=== PATIENT | female | born 1950 | race Caucasian/White ===

== ENCOUNTER 2019-09-28 15:31 | Outpatient (CLI) | payer MEDICARE, BC, SELFPAY ==
--- NOTE | ~2019-09-28 | MM_ITS ---
EXAMINATION: MM screening [facility] BI w henry HISTORY: Screening mammogram TECHNIQUE: Craniocaudal and mediolateral oblique 3-D tomosynthesis images were obtained and synthetic 2-D images were generated. CAD analysis was submitted and interpreted. COMPARISON: 07/03/2018, 06/18/2017, 06/10/2016 BREAST PARENCHYMAL COMPOSITION: There are scattered areas of fibroglandular density. FINDINGS: Scattered benign-appearing calcifications are present. There is no evidence of suspicious m ass, calcification, or architectural distortion to suggest malignancy in either breast. There has bee n no suspicious interval change. IMPRESSION: 1. No mammographic evidence of malignancy. 2. Recommend routine screening mammography in one year. BI-RADS Category 2: Benign finding(s). Reviewed, dictated and finalized at location A.
== END 2019-09-28 15:32 | disposition home or self-care (01) ==
PROVIDERS: PCP Family Medicine; Visit Provider Physician Assistant Medical
DX: Z12.31 Encounter for screening mammogram for malignant neoplasm of breast (principal)
CPT/HCPCS: 77063; 77067

== ENCOUNTER 2020-04-20 17:22 | Emergency (ER) | payer MEDICARE, BC, SELFPAY ==
--- NOTE | ~2020-04-20 | CT_ITS ---
EXAMINATION: CT brain wo con EXAM DATE: 04/20/2020 18:10 INDICATION: Headache. TECHNIQUE: Spiral CT of the head was performed without contrast. Axial, coronal and sagittal images were reviewed. The dose-length product (DLP) for this examination was 605.33 mGy-cm. The exposure w as tailored according to patient size, and iterative reconstruction (ASIR) was used as additional dos e reduction technique. Comparison is made to prior examination from 07/03/2013. FINDINGS: There is no acute intraparenchymal hemorrhage. No evidence of intraparenchymal brain mass lesion. No evidence of acute infarction. There is no mass effect or midline shift. The ventricles are normal in size. There are no extra-axial collections. There are no acute calvarial fractures. P vargas has had bilateral ocular lens surgery. The Soft tissue is unremarkable. The visualized sinuse s and mastoid air cells are well aerated. IMPRESSION: 1. No acute intracranial findings. Reviewed, dictated and finalized at location A. K PROCESSOR
--- NOTE | ~2020-04-20 | XR_ITS ---
EXAMINATION: XR chest 1V portable EXAM DATE: 04/20/2020 18:36 INDICATION: Hypertension, headache. TECHNIQUE: Portable AP frontal chest x-ray was obtained. Comparison is made to prior examination from 07/04/2016. FINDINGS: The lungs are clear. There are no pleural effusions. Cardiac silhouette is prominent but magnified on this AP technique. There is no pneumothorax suspected. The bones and soft tissues are unremarkable. Mild hyperinflation. IMPRESSION: No acute cardiopulmonary findings. Reviewed, dictated and finalized at location A. H FREEZER
[2020-04-20 17:28] VITALS: BP 214/74; PULSE 66; RESP 14; TEMP 37.1; O2SAT 99
--- NOTE | 2020-04-20 17:35 | ECG_ITS ---
Measurements Intervals [place] Rate: 61 P: 53 UT: 179 QRS: -20 QRSD: 104 T: 11 QT: 417 QTc: 421 Interpretive Statements SINUS RHYTHM POSSIBLE LEFT ATRIAL ENLARGEMENT INCOMPLETE RIGHT BUNDLE BRANCH BLOCK BORDERLINE ECG Electronically Signed On 04-21-2020 7:02:21 [employer] by David Villalobos D.O.
--- NOTE | 2020-04-20 17:52 | ED.HA ---
HPI - Headache General Chief Complaint: Headache Stated Complaint: high blood pressure Time Seen by Provider: 04/20/20 17:32 Source: patient Mode of arrival: ambulatory Limitations: no limitations History of Present Illness HPI Narrative: Patient is a 7-year-old female complaining of a headache, generalized, 3 out of 10, throbbing, nonradiating accompanied by elevated blood pressure started 2 weeks ago. Patient denies any speech or visual disturbance, numbness, weakness or unsteady gait. Patient denies any chest pain, abdominal pain, shortness of breath, nausea, vomiting, fever, or chills. Patient denies any neck pain or stiffness. Related Data Home Medications Medication Instructions Recorded Confirmed gabapentin 100 mg capsule 300 mg PO TID cap 11/24/19 11/24/19 aspirin 81 mg PO DAILY 04/20/20 04/20/20 vitamin B complex [B 1 tablet PO DAILY 04/20/20 Complex-Vitamin B12] wheat dextrin [Benefiber Healthy g PO 04/20/20 Shape] Allergies Allergy/AdvReac Type Severity Reaction Status Date / Time adhesive Allergy Unknown RASH Verified 04/10/20 08:20 codeine Allergy Unknown Unknown Verified 04/10/20 08:20 Penicillins Allergy Unknown Hives / Verified 04/10/20 08:20 Red Face epinephrine AdvReac Unknown Palpitation Verified 04/10/20 08:20 s Review of Systems Review of Systems: All systems reviewed & are unremarkable except as noted in HPI and below Constitutional: Constitutional: Denies body ache(s), Denies chills, Denies excessive sweating, Denies fatigue, Denies fever(s), Denies headache(s), Denies lethargy, Denies malaise, Denies weakness and Denies weight loss Eyes: Eyes: Denies blurry vision, Denies change in vision and Denies loss of vision ENT: Denies dizziness, Denies ear discharge, Denies headache(s), Denies lip swelling, Denies epistaxis, Denies nasal congestion, Denies neck pain, Denies throat swelling and Denies tongue swelling Cardiovascular: Cardiovascular: Denies chest pain, Denies chest pain at rest, Denies chest pain with activity, Denies diaphoresis, Denies rapid heart rate, Denies edema, Denies irregular heart rhythm, Denies lightheadedness, Denies palpitations, Denies dyspnea and Denies dyspnea on exertion Respiratory: Respiratory: Denies chest congestion, Denies cough, Denies hemoptysis, Denies dyspnea and Denies dyspnea on exertion Gastrointestinal: Gastrointestinal: Denies abdominal pain, Denies melena, Denies hematochezia, Denies diarrhea, Denies nausea, Denies vomiting and Denies hematemesis Musculoskeletal: Musculoskeletal: Denies abnormal gait, Denies deformity, Denies joint swelling, Denies limited range of motion, Denies neck pain and Denies numbness Neurologic: Denies Abnormal speech present, Denies abnormal gait, Denies confusion, Denies dizziness, Denies focal weakness, Denies loss of vision, Denies numbness, Denies Other visual disturbances, Denies Sensory deficit (Neuro) and Denies weakness Psychiatric: Psychiatric: Denies confusion, Denies depression, Denies auditory hallucinations, Denies homicidal ideation and Denies suicidal ideation Endocrine: Endocrine: Denies cold intolerance, Denies excessive sweating, Denies fatigue, Denies heat intolerance and Denies palpitations Hematologic/Lymphatic: Hematologic/Lymphatic: Denies easy bleeding and Denies easy bruising Allergic/Immunologic: Allergic/Immunologic: Denies lip swelling, Denies throat swelling and Denies tongue swelling PMFSH Past Medical History Medical History Acid reflux BMI 30.0-30.9,adult BMI 32.0-32.9,adult Deviated septum Diabetes Elevated lipids Hypertension Irritable bowel Surgical History Surgical History H/O shoulder surgery H/O total hysterectomy with bilateral salpingo-oophorectomy (BSO) H/O tubal ligation History of removal of skin mole Hx of tonsillectomy Family History Family History (Reviewed
[2020-04-20 18:00] LABS: Basophils Absolute Auto 0.1 K/mm3 (0.0-0.1); Basophils Percent Auto 0.8 % (0.2-1.2); Eosinophils Absolute Auto 0.2 K/mm3 (0-0.3); Eosinophils Percent Auto 2.4 % (0-4.4); Hematocrit 39.4 % (37.0-47.0); Hemoglobin 12.8 g/dL (12.0-15.0); Immature Granulocyte Absolute 0.02 K/mm3 (0.00-0.031); Immature Granulocyte Percent A 0.3 % (0-0.5); Lymphocytes Absolute Auto 2.05 K/mm3 (0.9-3.2); Lymphocytes Percent Auto 26.2 % (18.3-44.2); Mean Corpuscular HGB Conc 32.5 g/dl (32-36); Mean Corpuscular Hemoglobin 28.6 pg (26-34); Mean Corpuscular Volume 87.9 fl (80-100); Mean Platelet Volume 11.6 fl (7.4-10.4); Monocytes Absolute Auto 0.7 K/mm3 (0.1-0.6); Monocytes Percent Auto 9.1 % (2.6-8.5); Neutrophils Absolute Auto 4.8 K/mm3 (1.3-6.7); Neutrophils Percent Auto 61.2 % (45.5-73.1); Platelet Count Result 238 k/mm3 (150-375); Red Blood Count 4.48 M/mm3 (4.2-5.4); Red Cell Distribution Width 13.7 % (11.5-14.5); White Blood Count 7.8 K/mm3 (4.5-10.0)
[2020-04-20 18:10] LABS: Partial Thromboplastin Time 29.3 SECONDS (22.3-36.8); Prothrombin Time 13.4 Seconds (11.1-14.7)
[2020-04-20 18:14] LABS: Alanine Aminotransferase 36 U/L (4-35); Albumin Level 4.5 g/dL (3.5-5.1); Alkaline Phosphatase 101 U/L (38-126); Anion Gap 12 mmol/L (8-16); Aspartate Amino Transferase 30 U/L (14-36); Bilirubin,Total 0.4 mg/dL (0.2-1.3); Blood Urea Nitrogen 18 mg/dL (7-17); Calcium 9.3 mg/dL (8.4-10.2); Carbon Dioxide 29 mmol/L (22-30); Chloride 95 mmol/L (98-107); Estimated CRCL calculation 70 ml/min; Estimated Glomerular Filt Rate > 60; Glucose 119 mg/dL (65-105); Potassium 3.6 mmol/L (3.4-5.0); Sodium 136 mmol/L (137-145)
[2020-04-20] MEDS: hydrALAZINE HCL 20 MG/ML VIAL 10 MG IV PUSH (18:14)
[2020-04-20 18:17] VITALS: BP 206/69; PULSE 53; RESP 20; O2SAT 98
[2020-04-20 18:25] LABS: Troponin I < 0.012 ng/mL (0.000-0.034)
[2020-04-20 18:57] VITALS: BP 141/56; PULSE 54; RESP 17; O2SAT 99
[2020-04-20 20:10] VITALS: BP 186/70; PULSE 57; RESP 16; O2SAT 99
== END 2020-04-20 20:12 | disposition home or self-care (01) ==
PROVIDERS: Emergency Provider Emergency Medicine; PCP Family Medicine
DX: I16.0 Hypertensive urgency (principal); K21.9 Gastro-esophageal reflux disease without esophagitis; E11.9 Type 2 diabetes mellitus without complications; I10 Essential (primary) hypertension
CPT/HCPCS: 36415; 70450; 71045; 80053; 84484; 85025; 85610; 85730; 93005; 96374; 99284; J0360

== ENCOUNTER 2020-04-28 07:53 | Outpatient (CLI) | payer MEDICARE, BC, SELFPAY ==
--- NOTE | 2020-04-28 08:31 | ECHO_ITS ---
Patient Info Name: Heidy Arciniega Age: 70 years : 1950 Gender: Female Ht: 64 in Wt: 200 lbs BSA: 2.06 m2 HR: 45 bpm BP: 150 / 65 mmHg Heart Rhythm: Bradycardia Technical Quality: Good Exam Date: 04/28/2020 9:07 AM Exam Location: [facility] Patient Status: Outpatient Admit Date: 04/28/2020 Staff Ordering Physician: Yiemi Dominguez PAC Emergency Department Nurse: Chacha Shahid RDCS Attending Provider: Yeimi Dominguez PAC Referring Physician: Alberto GARCIA; Exam Type: CA echo doppler color flow Study Info Indications R06.02 - Shortness of breath R01.1 - Cardiac murmur, unspecified Complete two-dimensional, color flow and Doppler transthoracic echocardiogram is performed. Summary 1. Complete two-dimensional, color flow and Doppler transthoracic echocardiogram is performed. 2. Left ventricular chamber dimension is mildly enlarged. 3. Left ventricular systolic function is normal, estimated at 60-65%. 4. The left ventricular diastolic function is grade I diastolic dysfunction. 5. E/e' 19 is elevated. 6. Left atrial chamber dimension is mildly enlarged. 7. There is mild to moderate aortic valve regurgitation. 8. There is trace mitral valve regurgitation. 9. No pulmonary hypertension, estimated pulmonary arterial systolic pressure is 28 mmHg. Left Ventricle E/e' 19 is elevated. Left ventricular chamber dimension is mildly enlarged. Left ventricular systolic function is normal, estimated at 60-65%. The left ventricular diastolic function is grade I diastolic dysfunction. Right Ventricle Right ventricular chamber dimension is normal. Right ventricular systolic function is normal. Left Atria Left atrial chamber dimension is mildly enlarged. Right Atria Right atrial chamber dimension is normal. Aortic Valve The aortic valve is trileaflet. There is no aortic valve stenosis. There is mild to moderate aortic valve regurgitation. Pulmonic Valve There is no pulmonic regurgitation. Mitral Valve There is no mitral valve stenosis. There is trace mitral valve regurgitation. Tricuspid Valve There is no tricuspid valve regurgitation. No pulmonary hypertension, estimated pulmonary arterial systolic pressure is 28 mmHg. Pericardium/Pleural There is no pericardial effusion. Inferior Vena Cava Normal inferior vena cava with >50% collapse upon inspiration consistent with normal right atrial pressure, 5 mmHg. Aorta The aortic root size at the sinus of Valsalva is normal. Left Ventricular Outflow Tract Name Value Normal LVOT 2D LVOT Diameter 2.0 cm LVOT Doppler LVOT Peak Gradient 6 mmHg LVOT Mean Gradient 4 mmHg LVOT VTI 33 cm LVOT VTI/AV VTI Ratio 0.8 LVOT Stroke Volume 103 ml LVOT CO 16.9 l/min LVOT CI 8.2 l/min/m2 Pulmonic Valve Name Value Normal -----
--- NOTE | 2020-04-28 08:31 | EST_ITS ---
Patient Info Name: Heidy Arciniega Age: 70 years : 1950 Gender: Female Ht: 64 in Wt: 200 lbs BSA: 2.06 m2 HR: 48 bpm BP: 150 / 65 mmHg Exam Date: 04/28/2020 11:02 AM Exam Location: [facility] Stress Patient Status: Outpatient Admit Date: 04/28/2020 Staff Ordering Physician: Yeimi Dominguez PAC Attending Provider: Yeimi Dominguez Exercise Technologist: Diana Burnett CT Exercise Physician: David Villalobos DO Exam Type: CA stress test treadmill Study Info Indications R06.02 - Shortness of breath R01.1 - Cardiac murmur, unspecified A treadmill exercise stress test was performed. Summary 1. 1. Inconclusive [place] exercise stress test for ischemic ST changes by ECG criteria as patient only achieved 69% MPHR for age group and limited by dizziness. 2. 2. Reduced functional capacity, achieving 6 METs of workload. 3. 3. Baseline hypertension with hypertensive response to exercise. 4. 4. Appropriate HR response to exercise. 5. 5. Appropriate HR recovery at 1 minute post exercise. 6. 6. No imaging with stress testing. 7. 7. Patient informed of the above results. Protocol: [place] Stress ECG Details Stage: REST Duration (min): 5 min : 39 sec Speed (mph): 0.0 Grade (%): 0 HR (bpm): 50 SBP (mmHg): 150 DBP (mmHg): 65 METS: --- Stage: STAGE 1 Duration (min): 1 min : 0 sec Speed (mph): 1.7 Grade (%): 10 HR (bpm): 69 SBP (mmHg): 150 DBP (mmHg): 65 METS: --- Stage: STAGE 1 Duration (min): 2 min : 0 sec Speed (mph): 1.7 Grade (%): 10 HR (bpm): 82 SBP (mmHg): 150 DBP (mmHg): 65 METS: --- Stage: STAGE 1 Duration (min): 3 min : 0 sec Speed (mph): 1.7 Grade (%): 10 HR (bpm): 90 SBP (mmHg): 160 DBP (mmHg): 48 METS: --- Stage: STAGE 2 Duration (min): 1 min : 0 sec Speed (mph): 2.5 Grade (%): 12 HR (bpm): 102 SBP (mmHg): 160 DBP (mmHg): 48 METS: --- Stage: STAGE 2 Duration (min): 1 min : 11 sec Speed (mph): 2.5 Grade (%): 12 HR (bpm): 103 SBP (mmHg): 160 DBP (mmHg): 48 METS: --- Stage: RECOVERY Duration (min): 0 min : 48 sec Speed (mph): 0.0 Grade (%): 0 HR (bpm): 94 SBP (mmHg): 231 DBP (mmHg): 60 METS: --- Stage: RECOVERY Duration (min): 1 min : 48 sec Speed (mph): 0.0 Grade (%): 0 HR (bpm): 84 SBP (mmHg): 231 DBP (mmHg): 60 METS: --- Stage: RECOVERY Duration (min): 2 min : 48 sec Speed (mph): 0.0 Grade (%): 0 HR (bpm): 74 SBP (mmHg): 231 DBP (mmHg): 60 METS: --- Stage: RECOVERY Duration (min): 3 min : 48 sec Speed (mph): 0.0 Grade (%): 0 HR (bpm): 70 SBP (mmHg): 231 DBP (mmHg): 60 METS: --- Stage: RECOVERY Duration (min): 4 min : 48 sec Speed (mph): 0.0 Grade (%): 0 HR (bpm): 66 SBP (mmHg): 239 DBP (mmHg): 70 METS: --- Stage: RECOVERY Duration (min): 5 min :
== END 2020-04-28 07:54 | disposition home or self-care (01) ==
PROVIDERS: PCP Family Medicine; Visit Provider Physician Assistant Medical
DX: R06.02 Shortness of breath (principal); R01.1 Cardiac murmur, unspecified
CPT/HCPCS: 93017; 93306

== ENCOUNTER 2020-07-24 03:26 | Inpatient (IN) | payer MEDICARE, BC, SELFPAY ==
[2020-07-24] VITALS (16 sets, daily range): BP systolic 132–195; BP diastolic 49–76; PULSE 62–102; RESP 14–20; TEMP 36.2–36.6; O2SAT 96–100; BMI 33.8
--- NOTE | ~2020-07-24 | US_ITS ---
EXAMINATION: US abdomen limited EXAM DATE: 07/24/2020 13:05 INDICATION: Possible acute cholecystitis, evaluate for stones. Abnormal CT scan. TECHNIQUE: Multiple grayscale and Doppler images of the abdomen right upper quadrant were obtained (nereida y a technologist who performed the scan) and subsequently reviewed. Correlation is made to CT earlier same date. FINDINGS: The pancreatic head and body are normal in appearance. The pancreatic tail is not visualized. The l iver has normal echogenicity and contour. There are no focal liver lesions identified. There is no evidence of intrahepatic biliary duct dilation. Portal venous flow was seen in the hepatopedal, nor mal direction and has normal Doppler waveform. No right-sided hydronephrosis. Common bile duct measures 3 mm, which is normal. There is diffusely thickened wall up to about 6 mm. There is small pericholecystic fluid. No cholelithiasis. Technologist performing exam reports patien t did not demonstrate sonographic Diallo's sign. Please note that this sign is less reliable in maryjane ents who have received pain medication. IMPRESSION: Moderately distended gallbladder with wall thickening and pericholecystic fluid, nonspecific given ab sence of sonographic Diallo's sign (was pain medication administered?). No cholelithiasis. Appearance suspicious for acute or chronic cholecystitis? Clinical correlation, consider HIDA scan. Reviewed, dictated and finalized at location A. IMPRESSION: Moderately distended gallbladder with wall thickening and pericholecystic fluid , nonspecific given absence of sonographic Diallo's sign (was pain medication a dministered?). No cholelithiasis. Appearance suspicious for acute or chronic ch olecystitis? Clinical correlation, consider HIDA scan.
--- NOTE | ~2020-07-24 | CT_ITS ---
EXAMINATION: CT abdomen pelvis w con EXAM DATE: 07/24/2020 06:41 INDICATION: Abdominal pain. Epigastric pain and hypertension. TECHNIQUE: Spiral CT of the abdomen and pelvis was performed following intravenous injection of 100 m L Omnipaque 350. Axial, coronal and sagittal images of the abdomen and pelvis were reviewed. The do se-length product (DLP) for this examination was 978.35 mGy-cm. The exposure was tailored according to patient size (auto mA exposure control), and iterative reconstruction (ASIR) was used as additiona l dose reduction technique. Correlation is made to 01/20/2018. FINDINGS: Gallbladder is moderately distended and has edematous wall and probably surrounding pericho lecystic fluid. Appearance is consistent with acute cholecystitis. No calcified cholelithiasis. The l iver, spleen, adrenal glands and pancreas are unremarkable. Portal and splenic veins are patent. Ki dneys enhance symmetrically. There is no hydronephrosis. The uterus is not identified and has like ly been surgically resected. The bladder is unremarkable. There is no retroperitoneal or pelvic lym phadenopathy. The appendix is normal. The stomach and small bowel are unremarkable. There is expected amount of c olonic stool. No free intraperitoneal gas. The heart is normal in size. There are no pericardial or pleural effusions. The lung bases are unremarkable. There are no osteoblastic or osteolytic les ions identified. IMPRESSION: 1. Findings consistent with acute cholecystitis. Reviewed, dictated and finalized at location A.
--- NOTE | ~2020-07-24 | XR_ITS ---
EXAMINATION: XR chest 1V portable EXAM DATE: 07/24/2020 04:10 INDICATION: Lower chest pain. TECHNIQUE: Portable AP frontal chest x-ray was obtained. Comparison is made to prior examination from 04/20/2020. FINDINGS: The lungs are clear. There are no pleural effusions. Cardiac silhouette is prominent but magnified on this AP technique. There is no pneumothorax suspected. The bones and soft tissues are unremarkable. IMPRESSION: No acute cardiopulmonary findings. Reviewed, dictated and finalized at location A.
--- NOTE | 2020-07-24 03:47 | ECG_ITS ---
Measurements Intervals [place] Rate: 71 P: 56 CT: 152 QRS: -22 QRSD: 94 T: 5 QT: 392 QTc: 426 Interpretive Statements SINUS RHYTHM INCOMPLETE RIGHT BUNDLE BRANCH BLOCK DELAYED PRECORDIAL R/S TRANSITION BORDERLINE T WAVE ABNORMALITY- ANT/INF LEADS BORDERLINE ECG Electronically Signed On 07-24-2020 8:35:17 CDT by David Villalobos D.O.
--- NOTE | 2020-07-24 04:21 | ED.GENADULT ---
HPI - General Adult General Chief complaint: Abdominal Pain Stated complaint: epigastric pain, elevated BP Time Seen by Provider: 07/24/20 03:44 Source: RN notes reviewed History of Present Illness HPI narrative: Patient presents to emergency department from home for abdominal pain. Patient states that this afternoon she began to have pain in the upper abdomen that radiates up in the midsternal chest. The pain is described as burning in nature and is progressively worsened. States is associated with mild feeling of nausea. The patient also notes shortness of breath with the symptoms she denies any fevers or chills diarrhea or any other symptoms Related Data Home Medications Medication Instructions Recorded Confirmed gabapentin 100 mg capsule 300 mg PO TID cap 11/24/19 07/11/20 aspirin 81 mg PO DAILY 04/20/20 07/11/20 vitamin B complex [B 1 tablet PO DAILY 04/20/20 07/11/20 Complex-Vitamin B12] wheat dextrin [Benefiber Healthy g PO 04/20/20 07/11/20 Shape] cetirizine 10 mg tablet 10 mg PO DAILY PRN 05/11/20 07/11/20 fluticasone propionate 50 1 spray INTRANASAL DAILY 05/11/20 07/11/20 mcg/actuation nasal spray,suspension lactobacillus combination no.8 3 3,000 mmu cells PO DAILY 05/11/20 07/11/20 billion cell capsule melatonin 5 mg capsule mg PO 05/11/20 07/11/20 Allergies Allergy/AdvReac Type Severity Reaction Status Date / Time adhesive Allergy Unknown RASH Verified 07/24/20 03:37 codeine Allergy Unknown Unknown Verified 07/24/20 03:37 Penicillins Allergy Unknown Hives / Verified 07/24/20 03:37 Red Face amlodipine [From Norvas] AdvReac Intermediate Swelling Verified 07/24/20 03:37 epinephrine AdvReac Unknown Palpitation Verified 07/24/20 03:37 s Review of Systems Review of Systems: Narrative: Gen.: Denies fevers or chills ENT: Denies congestion Respiratory: Reports shortness of breath CV: Reports midsternal chest pain GI: See HPI denies burning, urgency, frequency or hematuria Musculoskeletal: Denies back pain or muscle pain Neuro: Denies numbness, tingling, weakness or focal weakness Skin: Denies rash Except as documented, all other systems reviewed and negative PMFSH Past Medical History Medical History Acid reflux BMI 30.0-30.9,adult BMI 32.0-32.9,adult BMI 33.0-33.9,adult BMI 34.0-34.9,adult Deviated septum Diabetes Edema Elevated lipids Hypertension Irritable bowel Surgical History Surgical History H/O shoulder surgery H/O total hysterectomy with bilateral salpingo-oophorectomy (BSO) H/O tubal ligation History of removal of skin mole Hx of tonsillectomy Family History Family History Daughter Carcinoma of colon Father Acute myocardial infarction Cerebrovascular accident Hypertension Mother Acute myocardial infarction Hypertension Sibling Diabetes mellitus Mother Diabetes mellitus Family history of coronary artery disease Family history of hypercholesterolemia Hypertension Father Cerebrovascular accident Family history of coronary artery disease Family history of hypercholesterolemia Hypertension Grandparent Diabetes mellitus Sibling Diabetes mellitus Family history of hypercholesterolemia Hypertension Other Family history of malignant neoplasm of breast Social History Social History Smoking status: Never smoker Second hand tobacco smoke exposure: No Alcohol intake: never Substance use: never Substance use type: does not use Exam Narrative: Exam Narrative: APPEARANCE: No acute distress, nontoxic, resting in bed HEENT: Normocephalic, atraumatic, OMM RESPIRATORY: No respiratory distress, clear to auscultation bilaterally with no rhonchi wheezing or rales CARDIOVASCULAR: RRR s murmur ABDOMINAL: Soft
[2020-07-24 04:49] LABS: Basophils Absolute Auto 0.1 K/mm3 (0.0-0.1); Basophils Percent Auto 0.5 % (0.2-1.2); Eosinophils Absolute Auto 0.2 K/mm3 (0-0.3); Hematocrit 40.4 % (37.0-47.0); Hemoglobin 12.9 g/dL (12.0-15.0); Immature Granulocyte Absolute 0.06 K/mm3 (0.00-0.031); Immature Granulocyte Percent A 0.6 % (0-0.5); Lymphocytes Absolute Auto 1.36 K/mm3 (0.9-3.2); Lymphocytes Percent Auto 14.3 % (18.3-44.2); Mean Corpuscular HGB Conc 31.9 g/dl (32-36); Mean Corpuscular Hemoglobin 28.1 pg (26-34); Mean Platelet Volume 10.4 fl (7.4-10.4); Monocytes Absolute Auto 0.8 K/mm3 (0.1-0.6); Monocytes Percent Auto 8.8 % (2.6-8.5); Neutrophils Percent Auto 73.8 % (45.5-73.1); Platelet Count Result 281 k/mm3 (150-375); Red Blood Count 4.59 M/mm3 (4.2-5.4); Red Cell Distribution Width 14.5 % (11.5-14.5); White Blood Count 9.5 K/mm3 (4.5-10.0)
[2020-07-24 05:00] LABS: INR 0.9; Partial Thromboplastin Time 28.2 SECONDS (22.3-36.8); Prothrombin Time 12.7 Seconds (11.1-14.7)
[2020-07-24 05:01] LABS: Alanine Aminotransferase 28 U/L (4-35); Albumin Level 4.5 g/dL (3.5-5.1); Alkaline Phosphatase 95 U/L (38-126); Anion Gap 7 mmol/L (8-16); Aspartate Amino Transferase 29 U/L (14-36); Bilirubin,Total 0.1 mg/dL (0.2-1.3); Blood Urea Nitrogen 10 mg/dL (7-17); Calcium 9.5 mg/dL (8.4-10.2); Carbon Dioxide 30 mmol/L (22-30); Chloride 98 mmol/L (98-107); Estimated CRCL calculation 81 ml/min; Estimated Glomerular Filt Rate > 60; Glucose 142 mg/dL (65-105); Lipase 122 U/L (23-300); Potassium 4.1 mmol/L (3.4-5.0); Sodium 135 mmol/L (137-145)
[2020-07-24 05:12] LABS: Troponin I < 0.012 ng/mL (0.000-0.034)
[2020-07-24] MEDS: metroNIDAZOLE 500 MG/ISO 100ML 500 MG/100 ML BAG 100 MG IVPB ×3 (07:08→17:22)
[2020-07-24 07:22] LABS: Troponin I < 0.012 ng/mL (0.000-0.034)
--- NOTE | 2020-07-24 08:48 | ADMGEN ---
This patient, Heidy Arciniega, was admitted to 3 [facility] Surg Room 329-01 @ 0848. Patient/family oriented to hospital policies and general routines including ID bracelet, bed and alarms, visiting hours, pain management, procedures, bathroom and other care routines, personal items, smoking policy, room service/diet, and visiting hours. Information on how to activate the Rapid Response Team has been discussed. Patient/Family are encouraged to report perceived risks to care and to ask questions if they do not understand what they are told or what they should do.
--- NOTE | 2020-07-24 10:10 | PM.CNGS ---
Assessment and Plan Assessment and plan (1) Acute cholecystitis: Code(s): K81.0 - Acute cholecystitis Status: Acute Assessment and Plan: CT scan reviewed and discussed with Dr. Morris and the patient in detail. The gallbladder appears distended with some wall thickening and possible pericholecystic fluid, but no calcified gallstones noted. WBC and LFTs normal. The patient's pain has improved this morning and she is feeling much better on my exam. We will obtain a right upper quadrant abdominal ultrasound this morning. If the ultrasound supports acute calculous cholecystitis, then we may need to consider proceeding with a laparoscopic cholecystectomy on this hospitalization. Otherwise, we may try advancing her to a low fat diet to see if she could tolerate this and be discharged home. This would allow her to complete her outpatient cardiac work-up prior to scheduling an outpatient cholecystectomy. If we feel that she will require surgery on this hospitalization, then we will also consult Cardiology today. Will continue with broad-spectrum IV antibiotics, IV fluids, and NPO status for now. Await ultrasound results. Thank you for allowing us to see the patient in consultation and we will continue to follow along with you. (2) Chest pain: Code(s): R07.9 - Chest pain, unspecified Status: Acute Assessment and Plan: Currently followed by Cardiology for uncontrolled hypertension and complaints of chest pain and shortness of breath. Inconclusive exercise stress test in April. Planned CTA of the heart at [facility] today, which had to be cancelled due to her hospitalization. May consider consulting Dr. Villalobos for pre-operative cardiac risk assessment if she requires surgery on this hospitalization. See plan above. (3) Uncontrolled hypertension: Code(s): I10 - Essential (primary) hypertension Status: Acute Assessment and Plan: BP 148/58 this morning. Home medications on hold while NPO. Management per Hospitalist. (4) Diabetes: Qualifiers: Diabetes mellitus type: type 2 Diabetes mellitus long-term insulin use: without long-term use Diabetes mellitus complication status: without complication Qualified Code(s): E11.9 - Type 2 diabetes mellitus without complications Code(s): E11.9 - Type 2 diabetes mellitus without complications Status: Acute Assessment and Plan: Management per Hospitalist. Recent Hgb A1C 7.1. (5) BMI 34.0-34.9,adult: Code(s): Z68.34 - Body mass index [BMI] 34.0-34.9, adult Status: Acute Additional Plan I have discussed the patient's case and plan of care with Dr. Morris. History of Present Illness Consult details Consult date: 07/24/20 Reason for consult: other (Possible acute cholecystitis) Requesting physician: Corey Hernandez DO Narrative: This is a 70-year-old female with a history of hypertension and type 2 diabetes, who presented to the ER for evaluation of epigastric abdominal pain. She reports having intermittent epigastric abdominal pain off and on for years, but typically this is mild and subsides spontaneously. She reports that she ate fried salmon patties and corn last night for dinner around 4:30 pm, and not long after her meal she had a sudden onset of epigastric abdominal pain. The pain radiated to her mid back and chest. The pain was more severe than previous episodes. Due to the unrelenting pain, she presented to the ER early this morning for evaluation. CT scan of the abdomen and pelvis showed moderate distention of the gallbladder, wall thickening, and probably surrounding pericholecystic fluid, but no calcified cholelithiasis. Labs showed a normal white blood cell count and normal LFTs. Troponin negative x 3. EKG with no ischemic changes. Our service was consulted for surgical evaluation of possible acute cholecystitis. The patient is now seen on the medical floor. Patient reports significant improvement in her abdominal pain
[2020-07-24 10:26] LABS: Troponin I < 0.012 ng/mL (0.000-0.034)
[2020-07-24] MEDS: SODIUM CHLORIDE 0.9% IV 1,000 ML 125 ML IV CONT ×2 (10:44→21:06)
--- NOTE | 2020-07-24 12:28 | PM.IMHP ---
H&P: HPI History of Present Illness Date/Time: 07/24/20 12:28 Chief Complaint: Right upper quadrant pain Narrative: This is a 70-year-old female with past medical history significant for seasonal allergies, type 2 diabetes mellitus diabetic neuropathy, grade 1 diastolic heart failure, hypertension. Patient presented to the emergency room due to abdominal pain nausea vomiting and diarrhea x2 days over the weekend. She had some chills as well, no cough no sputum production no shortness of breath, did not notice any blood in the stool, she had several bowel movements, no pain or burning with urination. The pain was initially mainly localized to the retrosternal and epigastric area later it localized to the right upper quadrant and radiation to the left upper quadrant. Patient decided to come to the emergency room preliminary workup was significant for CT of abdomen and pelvis for acute cholecystitis patient has been admitted to general medical floor. Review of Systems Review of Systems: Narrative: No nausea vomiting abdominal pain diarrhea x2 days duration Constitutional: Comments: No fevers no rigors no chills no weight loss Eyes: Comments: No vision changes ENT: Comments: No earache no nasal congestion Cardiovascular: Comments: No chest pain no palpitations no PND no orthopnea no leg swelling Respiratory: Comments: No shortness of breath no cough no sputum production Gastrointestinal: Comments: nausea, vomiting, diarrhea epigastric abdominal pain and right upper quadrant pain Genitourinary: Comments: No pain or burning with urination Musculoskeletal: Comments: No muscle or joint pain Integumentary/Breasts: Comments: No rash Neurologic: Comments: No sensorimotor deficit Endocrine: Comments: No heat or cold intolerance no polydipsia polyphagia or polyuria Hematologic/Lymphatic: Comments: No lymphadenopathy [facility] Past Medical History Medical History (Updated 07/24/20 @ 12:40 by Iván Gottlieb MD) Acid reflux BMI 34.0-34.9,adult Deviated septum Diabetes Edema Elevated lipids Hypertension Irritable bowel Surgical History Surgical History H/O shoulder surgery H/O total hysterectomy with bilateral salpingo-oophorectomy (BSO) Open TYREL-BSO in September 2018 H/O tubal ligation History of removal of skin mole Hx of tonsillectomy Family History Family History Daughter Carcinoma of colon Father Acute myocardial infarction Cerebrovascular accident Hypertension Mother Acute myocardial infarction Hypertension Gallbladder disease Sibling Diabetes mellitus Mother Diabetes mellitus Family history of coronary artery disease Family history of hypercholesterolemia Hypertension Father Cerebrovascular accident Family history of coronary artery disease Family history of hypercholesterolemia Hypertension Grandparent Diabetes mellitus Sibling Diabetes mellitus Family history of hypercholesterolemia Hypertension Other Family history of malignant neoplasm of breast Social History Social History Smoking status: Never smoker Second hand tobacco smoke exposure: No Alcohol intake: never Substance use: never Substance use type: does not use Gender identity (if verbalized by the patient): Female Spiritual care concerns: No Meds Home Medications and Allergies Home Medications Medication Instructions Recorded Confirmed Type gabapentin 100 mg capsule 300 mg PO TID cap 11/24/19 07/24/20 History sitagliptin 100 mg tablet 100 mg PO DAILY #90 tablet 03/27/20 07/24/20 Rx temazepam 15 mg capsule 15 mg PO ONCE #90 cap 03/27/20 07/24/20 Rx valsartan 160 1 tablet PO DAILY #90 tablet 03/27/20 07/24/20 Rx mg-hydrochlorothiazide 25 mg tablet aspirin 81 mg PO DAILY 04/20/20 07/24/20 History vitamin B complex [B 1 table
--- NOTE | 2020-07-24 15:03 | PC.NURSE ---
Spoke with Lacy Bowling BODY DESIGN CHECKER about patients NPO status. Lacy okayed giving P.O medications with sips of water.
[2020-07-24] MEDS: GABAPENTIN 300 MG CAPSULE PO ×2 (15:15→17:22)
[2020-07-24] MEDS: hydrALAZINE HCL 50 MG TABLET PO ×2 (15:15→17:22)
[2020-07-24 17:44] LABS: Glucose Point of Care 122 (65-105)
--- NOTE | 2020-07-24 19:16 | ECG_ITS ---
Measurements Intervals [place] Rate: 86 P: 57 OR: 174 QRS: -21 QRSD: 95 T: -5 QT: 374 QTc: 449 Interpretive Statements SINUS RHYTHM DELAYED PRECORDIAL R/S TRANSITION BORDERLINE ST-T WAVE ABNORMALITY- ANT/INF LEADS BASELINE ARTIFACT- I, II BORDERLINE ECG Electronically Signed On 07-25-2020 8:02:59 CDT by David Villalobos D.O.
[2020-07-24] MEDS: hydrALAZINE HCL 20 MG/ML VIAL 25 MG IV PUSH (19:22)
[2020-07-24] MEDS: MORPHINE SULFATE (*CRX) 2 MG/ML INJ IV PUSH (19:27)
[2020-07-24 20:19] LABS: Troponin I < 0.012 ng/mL (0.000-0.034)
[2020-07-24] MEDS: TEMAZEPAM (*CRX) 15 MG CAPSULE PO (21:07)
[2020-07-24 23:29] LABS: Glucose Point of Care 152 (65-105)
[2020-07-25] VITALS (17 sets, daily range): BP systolic 146–179; BP diastolic 56–70; PULSE 59–106; RESP 14–20; TEMP 36.2–37.4; O2SAT 93–100
[2020-07-25] MEDS: metroNIDAZOLE 500 MG/ISO 100ML 500 MG/100 ML BAG 100 MG IVPB ×5 (00:11→23:32)
[2020-07-25] MEDS: KETOROLAC 15 MG/ML VIAL (*BKC) IV PUSH ×2 (04:02→12:22)
[2020-07-25] MEDS: SODIUM CHLORIDE 0.9% IV 1,000 ML 125 ML IV CONT (06:28)
[2020-07-25 06:31] LABS: Basophils Percent Auto 0.5 % (0.2-1.2); Eosinophils Absolute Auto 0.1 K/mm3 (0-0.3); Eosinophils Percent Auto 0.8 % (0-4.4); Hematocrit 36.2 % (37.0-47.0); Hemoglobin 11.7 g/dL (12.0-15.0); Immature Granulocyte Absolute 0.03 K/mm3 (0.00-0.031); Immature Granulocyte Percent A 0.4 % (0-0.5); Lymphocytes Absolute Auto 0.95 K/mm3 (0.9-3.2); Mean Corpuscular HGB Conc 32.3 g/dl (32-36); Mean Corpuscular Hemoglobin 27.7 pg (26-34); Mean Corpuscular Volume 85.8 fl (80-100); Mean Platelet Volume 10.4 fl (7.4-10.4); Monocytes Absolute Auto 0.4 K/mm3 (0.1-0.6); Neutrophils Absolute Auto 5.8 K/mm3 (1.3-6.7); Neutrophils Percent Auto 79.3 % (45.5-73.1); Platelet Count Result 254 k/mm3 (150-375); Red Blood Count 4.22 M/mm3 (4.2-5.4); Red Cell Distribution Width 14.3 % (11.5-14.5); White Blood Count 7.3 K/mm3 (4.5-10.0)
[2020-07-25 06:42] LABS: Alanine Aminotransferase 23 U/L (4-35); Albumin Level 3.7 g/dL (3.5-5.1); Alkaline Phosphatase 84 U/L (38-126); Anion Gap 5 mmol/L (8-16); Aspartate Amino Transferase 25 U/L (14-36); Bilirubin,Total 0.2 mg/dL (0.2-1.3); Blood Urea Nitrogen 8 mg/dL (7-17); Calcium 8.5 mg/dL (8.4-10.2); Carbon Dioxide 26 mmol/L (22-30); Chloride 101 mmol/L (98-107); Estimated CRCL calculation 80 ml/min; Estimated Glomerular Filt Rate > 60; Glucose 176 mg/dL (65-105); Potassium 4.1 mmol/L (3.4-5.0); Sodium 132 mmol/L (137-145)
[2020-07-25 08:04] LABS: Glucose Point of Care 171 (65-105)
[2020-07-25] MEDS: hydroCHLOROthiazide 25 MG TABLET PO (09:12)
[2020-07-25] MEDS: VALSARTAN 160 MG TABLET PO (09:12)
[2020-07-25] MEDS: hydrALAZINE HCL 50 MG TABLET PO ×3 (09:12→19:17)
[2020-07-25] MEDS: GABAPENTIN 300 MG CAPSULE PO ×2 (09:12→19:17)
[2020-07-25] MEDS: FLUTICASONE PROPIONATE 0.05% NA SPR 16 GM BTL (*BKC) 1 SPRAY NASAL (09:13)
[2020-07-25] MEDS: CHLORHEXIDINE GLUCONATE 4% SOL 120 ML BTL 1 APPLIC TOPICAL (10:19)
[2020-07-25 11:30] LABS: Glucose Point of Care 145 (65-105)
--- NOTE | 2020-07-25 11:35 | PM.IMPN ---
Progress Note: A&P Assessment and Plan (1) Nausea vomiting and diarrhea: Code(s): R11.2 - Nausea with vomiting, unspecified; R19.7 - Diarrhea, unspecified Status: Acute Assessment and Plan: Supportive care Improved Patient has been NPO (2) Acute cholecystitis: Code(s): K81.0 - Acute cholecystitis Status: Acute Assessment and Plan: The patient will go for laparoscopy cholecystectomy Appreciate surgery note (3) Obesity: Code(s): E66.9 - Obesity, unspecified Status: Acute Assessment and Plan: Lifestyle and diet modifications (4) Diastolic dysfunction: Code(s): I51.89 - Other ill-defined heart diseases Status: Acute Assessment and Plan: Stable (5) Bilateral hand numbness: Code(s): R20.0 - Anesthesia of skin Status: Acute Assessment and Plan: Likely secondary to diabetic neuropathy Continue to monitor On gabapentin (6) Essential hypertension: Code(s): I10 - Essential (primary) hypertension Status: Acute Assessment and Plan: Continue to monitor Continue home med Goal 130/80 Subjective Date/time seen: 07/25/20 11:35 I feel better today Review of Systems Review of Systems: Narrative: The patient presented to the emergency room after 2 days with nausea vomiting abdominal pain in the epigastric area that later localized to the right upper quadrant Constitutional: Comments: Some chills Cardiovascular: Comments: No chest pain no PND no orthopnea Respiratory: Comments: No cough no sputum production no shortness of breath Gastrointestinal: Comments: Abdominal pain Musculoskeletal: Comments: No muscle pain or joint pain Integumentary/Breasts: Comments: No rashes Neurologic: Comments: No sensorimotor deficit Endocrine: Comments: No polydipsia polyphagia polyuria no heat or cold intolerance Exam Narrative: Exam Narrative: Lying in bed Const: General: comfortable, no acute distress, well developed, alert and awake Nutritional Appearance: overweight Orientation/consciousness: patient oriented x3 HENMT: Head: normal to inspection, normocephalic and atraumatic Ears: hearing grossly normal bilaterally Face and sinus: normal facial exam Eyes: General: appearance normal, both eyes and all related structures Pupils: Equal, round and reactive pupils present EOM: EOMs intact bilaterally Neck: Neck: full ROM, no lymphadenopathy and no JVD Thyroid: thyroid normal Lymphatic: no lymphadenopathy noted Resp: Effort & Inspection: normal respiratory effort and able to speak in complete sentences Auscultation: clear to auscultation bilaterally Cardio: Jugular venous distension: no JVD Rate: regular rate Rhythm: regular rhythm Heart sounds: S1 normal heart sound present and S2 normal heart sound present GI: GI Palp: Yes Soft to palpation and Yes No hepatosplenomegaly present : General: Yes deferred Skin: Rashes: no rashes Wounds: no wounds Neuro: General: patient oriented x3 and CN's II-XI intact bilaterally Cranial nerves: Yes CN's II-XII intact bilaterally and Yes Equal, round and reactive pupils present Cognition (Neuro): normal cognition Speech: normal speech Gait exam (Neuro): Normal gait present Motor exam (neuro): 5/5 motor strength present throughout Extrem: General: normal to inspection, full ROM, no joint enlargement and no pedal edema Objective Data Vital Signs Vital Signs: Vital Signs - 24 hr 07/24/20 14:00 07/24/20 18:54 07/24/20 19:18 Temperature 97.7 F Pulse Rate 63 Respiratory Rate 18 Blood Pressure 151/59 H 161/50 H 195/65 H Pulse Oximetry 97 07/24/20 19:25 07/24/20 20:00 07/24/20 20:01 Temperature Pulse Rate 102 H 90 Respiratory Rate 20 Blood Pressure 183/63 H 156/49 H Pulse Oximetry 100 07/24/20 20:30 07/24/20 22:41 07/25/20 00:00 Temperature 98 F Pulse Rate 88 78 94 Respiratory Rate 20 Blood Pressure 155/57 H 132/49 L Pulse
--- NOTE | 2020-07-25 15:14 | PC.NURSE ---
Patient to pre-op per bed.
[2020-07-25] MEDS: SCOPOLAMINE 1.5 MG PATCH TRANSDERM (15:39)
[2020-07-25] MEDS: LACTATED RINGERS 1,000 ML 30 ML IV CONT (15:40)
--- NOTE | 2020-07-25 16:23 | WPDANESEPPF ---
Anes - Initial Pre Proc Eval Procedure: Operation Date: 07/25/20 15:30 Proposed Procedures p Laparoscopic Cholecystectomy, Possible Open - Florencio Morris DO Date/Time: 07/25/20 16:23 Surgeon: Dane Barrios MD Pre Op Diagnosis: cholecystitis Patient Data Age: 70 Gender: F Height: 5 ft 4 in Weight: 89.5 kg Last Vital Signs Temp 36.4 C 07/25/20 15:20 Pulse 67 07/25/20 15:20 Resp 16 07/25/20 15:20 BP 157/56 H 07/25/20 15:20 Pulse Ox 99 07/25/20 15:20 Allergies Allergy/AdvReac Type Severity Reaction Status Date / Time adhesive Allergy Unknown RASH Verified 07/24/20 10:58 codeine Allergy Unknown Unknown Verified 07/24/20 10:58 Penicillins Allergy Unknown Hives / Verified 07/24/20 10:58 Red Face amlodipine [From [facility]] AdvReac Intermediate Swelling Verified 07/24/20 10:58 epinephrine AdvReac Unknown Palpitation Verified 07/24/20 10:58 s morphine AdvReac Hallucinati Verified 07/25/20 02:22 ng Home Medications Medication Instructions Recorded Confirmed Type gabapentin 100 mg capsule 300 mg PO TID cap 11/24/19 07/24/20 History sitagliptin 100 mg tablet 100 mg PO DAILY #90 tablet 03/27/20 07/24/20 Rx temazepam 15 mg capsule 15 mg PO ONCE #90 cap 03/27/20 07/24/20 Rx valsartan 160 1 tablet PO DAILY #90 tablet 03/27/20 07/24/20 Rx mg-hydrochlorothiazide 25 mg tablet aspirin 81 mg PO DAILY 04/20/20 07/24/20 History vitamin B complex [B 1 tablet PO DAILY 04/20/20 07/24/20 History Complex-Vitamin B12] wheat dextrin [Benefiber Healthy 4 g PO DAILY 04/20/20 07/24/20 History Shape] cetirizine 10 mg tablet 10 mg PO DAILY PRN 05/11/20 07/24/20 History fluticasone propionate 50 1 spray INTRANASAL DAILY 05/11/20 07/24/20 History mcg/actuation nasal spray,suspension lactobacillus combination no.8 3 3,000 mmu cells PO DAILY 05/11/20 07/24/20 History billion cell capsule melatonin 5 mg capsule 5 mg PO HS 05/11/20 07/25/20 History pravastatin 40 mg tablet 40 mg PO DAILY #90 tablet 06/26/20 07/24/20 Rx hydralazine 50 mg tablet 50 mg PO TID #60 tablet 07/11/20 07/24/20 Rx metformin 500 mg tablet,extended 2,000 mg PO DAILY #360 tablet 07/14/20 07/24/20 Rx release 24 hr omeprazole 20 mg capsule,delayed 20 mg PO DAILY #90 cap 07/14/20 07/24/20 Rx release Laboratory Tests 07/24/20 07/24/20 07/24/20 17:41 19:38 22:34 WBC RBC Hgb Hct MCV MCH MCHC RDW Plt Count MPV Immature Gran % (Auto) Neut % (Auto) Lymph % (Auto) [place] % (Auto) Eos % (Auto) Baso % (Auto) Lymph # (Auto) [place] # (Auto) Eos # (Auto) Baso # (Auto) Abs Immat Gran (auto) Absolute Neuts (auto) Absolute Nucleated RBC Nucleated RBC % Sodium Potassium Chloride Carbon Dioxide Anion Gap BUN Creatinine Estim Creat Clear Calc Estimated GFR Glucose POC Capillary Glucose 122 mg/dl H mg/dl 152 mg/dl H mg/dl (65-105) (65-105) Calcium Total Bilirubin AST ALT Alkaline Phosphatase Troponin I < 0.012 ng/mL ng/mL (0.000-0.034) Total Protein Albumin 07/25/20 07/25/20 07/25/20 06:16 06:16 08:01 WBC 7.3 K/mm3 K/mm3 (4.5-10.0) RBC 4.22 M/mm3 M/mm3 (4.2-5.4) Hgb 11.7 g/dL L g/dL (12.0-15.0) Hct 36.2 % L % (37.0-47.0) MCV 85.8 fl fl (80-100) MCH 27.7 pg pg (26-34) MCHC 32.3 g/dl g/dl (32-36) RDW 14.3 % % (11.5-14.5) Plt Count 254 k/mm3 k/mm3 (150-375) MPV 10.4 fl fl (7.4-
--- NOTE | 2020-07-25 16:49 | WPDHPUPDATE1 ---
History and Physical Update Update Date/Time: 07/25/20 16:49 History and Physical has been reviewed, including an updated exam of the patient. There are NO changes in the patient's condition. Risks, benefits, and alternatives have been discussed and questions answered. Patient agrees to proceed with procedure.
[2020-07-25] MEDS: BUPIVACAINE/EPINEPHRINE 0.5% 30 ML VIAL INFILTRATE (17:37)
--- NOTE | 2020-07-25 17:52 | PM.PROC ---
Procedure Note - Detailed Date of procedure: 07/25/20 Pre-op diagnosis: cholecystitis Post-op diagnosis: same Procedure performed: Laparoscopic Cholecystectomy Description of procedure: Procedure as well as risks, benefits, and alternatives were discussed with patient. Written consent was obtained and placed in chart prior to procedure. The patient was brought back to surgical suite. Patient was placed in supine position on operating table. Time-out was done to confirm patient and procedure. Patient was then intubated by the anesthesia department. Abdomen was prepped and draped in sterile fashion using chlorhexidine prep. 0.5% bupivacaine with epinephrine was infiltrated at each site of incision. A 5 millimeter incision was made near the umbilicus, and a 5 millimeter Optiview trocar was advanced through the abdominal layers under direct visualization. Once inside the abdominal cavity, carbon dioxide was insufflated to create a pneumoperitoneum. The camera was inserted and the abdomen was inspected. No immediate abnormalities were identified. The patient was placed in reverse Trendelenburg position and rotated slightly to the left. An 11 millimeter incision was made in the subxiphoid region, and an 11 millimeter trocar was inserted under direct visualization. Two 5 millimeter incisions were made in the right upper quadrant, and two 5 millimeter trocars were inserted under direct visualization. The gallbladder was identified and grasped at the fundus and retracted superiorly. It was then grasped at the infundibulum retracted laterally. Careful dissection around the neck of the gallbladder was performed using blunt dissection with a [place] grasper and hook electrocautery. The cystic duct was identified, and a window was created behind it. The cystic artery was also identified and a window was created behind it. The critical view of safety was identified, visualizing the cystic duct running directly into the neck of the gallbladder, and the cystic artery running directly into the wall of the gallbladder. A 5 millimeter clip postage machine operator was then used to place 2 clips proximally and 1 clip distally on both the cystic duct and cystic artery. They were then both transected using endoscopic scissors. Once safely away from the gagandeep hepatitis, the gallbladder was dissected free from the liver bed using hook electrocautery. Hemostasis was achieved along the way. The gallbladder was removed completely and then removed through the subxiphoid port. The liver bed was then inspected. Hemostasis appeared adequate, and our clips appeared secure. The area was gently irrigated with sterile saline. No other abnormalities were seen. The patient was flattened out in bed, and 1 final inspection was made around the abdominal cavity. The subxiphoid port was removed, and a Geronimo Kinza cone was used to approximate the fascia with an 0-Vicryl simple interrupted suture. The remaining ports were then removed under direct visualization, the camera was removed, and the pneumoperitoneum was released. The skin of the incisions was approximated using 4-0 Monocryl subcuticular sutures. Exofin glue was applied on top. The patient was then awakened from anesthesia, extubated, and transferred to recovery. Anesthesia: GETA and local (0.5% bupivicaine with epi) Surgeon: Florencio Morris DO Estimated blood loss (mL): 5 Drains: No Packing: No Pathology: yes Complications: No immediate complications Condition: stable (Patient tolerated procedure well, and is currently resting comfortably in recovery.) Disposition: same day Findings: this is a 70-year-old woman who presented to the emergency department on 07/24/2020 with epigastric and right upper quadrant abdominal pain. She was found to have evidence of acute cholecystitis, but gallstones were not clearly evident. Discussions were made with the patient about treatment options and decision was made to proceed with laparoscopic cho
[2020-07-25] MEDS: fentaNYL CITRATE INJ (*CRX) 100 MCG/2 ML VIAL 25 MCG IV PUSH ×2 (18:30→18:32)
--- NOTE | 2020-07-25 19:09 | PC.NURSE ---
Patient returned from post-op.
[2020-07-25 19:17] LABS: Glucose Point of Care 163 (65-105)
[2020-07-25] MEDS: PANTOPRAZOLE 40 MG TABLET PO (19:17)
[2020-07-25] MEDS: INSULIN ASPART (*BKC) 100 UNITS/ML SUB-Q (19:23)
[2020-07-25] MEDS: HYDROcodone/acetaminophen (*CRX) 5-325 MG TABLET 1 TAB PO (20:34)
[2020-07-25] MEDS: TEMAZEPAM (*CRX) 15 MG CAPSULE PO (22:57)
[2020-07-25] MEDS: MELATONIN 5 MG TABLET PO (22:57)
[2020-07-26] VITALS: BP 131/51; PULSE 97; RESP 18; TEMP 38.1; O2SAT 90
[2020-07-26 01:00] LABS: Glucose Point of Care 147 (65-105)
[2020-07-26 01:25] VITALS: TEMP 38.1
[2020-07-26] MEDS: ACETAMINOPHEN 325 MG TABLET 650 MG PO (01:25)
[2020-07-26 04:00] VITALS: BP 121/40; PULSE 82; RESP 16; TEMP 37.6; O2SAT 90
[2020-07-26] MEDS: metroNIDAZOLE 500 MG/ISO 100ML 500 MG/100 ML BAG 100 MG IVPB (05:27)
--- NOTE | 2020-07-26 07:12 | WPDANESPN ---
Anes - Prog Note Post-Op Date/Time: 07/26/20 07:12 Cardiovascular status: normal Respiratory status: normal Airway patency: baseline Mental status: baseline Post-Op hydration status: normal Vital Signs: Last Vital Signs Temp 37.6 C H 07/26/20 04:00 Pulse 82 07/26/20 04:00 Resp 16 07/26/20 04:00 BP 121/40 L 07/26/20 04:00 Pulse Ox 90 07/26/20 04:00 Pain Score (VAS): 0 I/O: Intake & Output 07/25/20 07/25/20 07/26/20 15:59 23:59 07:59 Intake Total 250 350 150 Output Total 600 100 Balance 250 -250 50 Laboratory Tests 07/25/20 06:16 07/25/20 06:16 07/25/20 07/25/20 07/25/20 08:01 11:27 18:20 POC Capillary Glucose 171 H 145 H 147 H 07/25/20 19:13 POC Capillary Glucose 163 H Post-procedural complaints: none Patient Feedback: Patient satisfied with anesthetic care.
[2020-07-26 07:57] VITALS: BP 137/53; PULSE 73; RESP 18; TEMP 36.6; O2SAT 94
[2020-07-26 08:17] VITALS: O2SAT 93
[2020-07-26] MEDS: FLUTICASONE PROPIONATE 0.05% NA SPR 16 GM BTL (*BKC) 1 SPRAY NASAL (08:50)
[2020-07-26] MEDS: VALSARTAN 160 MG TABLET PO (08:51)
[2020-07-26] MEDS: ASPIRIN 81 MG ENTERIC TABLET PO (08:51)
[2020-07-26] MEDS: metFORMIN HCL XR 500 MG TAB.SR.24H 2000 MG PO (08:51)
[2020-07-26] MEDS: PRAVASTATIN SODIUM 20 MG TABLET 40 MG PO (08:51)
[2020-07-26] MEDS: hydroCHLOROthiazide 25 MG TABLET PO (08:51)
[2020-07-26] MEDS: PANTOPRAZOLE 40 MG TABLET PO (08:51)
[2020-07-26] MEDS: GABAPENTIN 300 MG CAPSULE PO (08:51)
[2020-07-26] MEDS: hydrALAZINE HCL 50 MG TABLET PO (08:51)
[2020-07-26] MEDS: INSULIN ASPART (*BKC) 100 UNITS/ML SUB-Q ×2 (08:56→12:25)
--- NOTE | 2020-07-26 09:38 | PM.PNGS ---
Progress Note: A&P Assessment and Plan (1) Acute cholecystitis: Code(s): K81.0 - Acute cholecystitis Status: Acute Assessment and Plan: POD#1 and doing well. Pain well-controlled. Patient can take Tylenol and Ibuprofen for pain on discharge, she would prefer to avoid narcotics. Okay to stop antibiotics. Advanced to a low fat diet, follow this for two weeks. Okay to discharge the patient today from a surgical standpoint. Discharge instructions discussed in detail with the patient. Additional Plan I have discussed the plan of care with Dr. Morris. Subjective Subjective Date/Time Seen: 07/26/20 09:38 Post Op day: 1 (lap christ) Patient reports: tolerating a regular diet, voiding w/o difficulty and afebrile Interval history: Patient feeling well this morning. Reports feeling sore, but her pain is tolerable. No nausea or vomiting. No other complaints at this time. Review of Systems Review of Systems: All systems reviewed & are unremarkable except as noted in HPI and below Constitutional: Constitutional: Reports as per HPI, Reports no additional constitutional complaints, Denies chills and Denies fever(s) Cardiovascular: Cardiovascular: Reports no additional cardiovascular complaints, Denies chest pain, Denies leg edema and Denies dyspnea Respiratory: Respiratory: Reports no additional respiratory complaints, Denies cough and Denies dyspnea Gastrointestinal: Gastrointestinal: Reports as per HPI and Reports no additional gastrointestinal complaints Neurologic: Reports system reviewed and no additional complaints, except as documented, Denies Abnormal speech present and Denies focal weakness Exam Const: General: comfortable, no acute distress, alert and awake Orientation/consciousness: patient oriented x3 Resp: Effort & Inspection: normal respiratory effort Auscultation: clear to auscultation bilaterally Cardio: Rate: regular rate Rhythm: regular rhythm GI: Inspection: non-distended and incision (Abdominal incisions clean and dry, glue intact.) GI Palp: Yes Soft to palpation and Yes Tenderness to palpation present (GI) (incisional) Auscultation: normal bowel sounds Skin: General skin exam: normal color Neuro: General: moves all extremities and no focal motor deficits Extrem: General: no clubbing, cyanosis or edema and no calf tenderness Psych: Mental Status: mental status grossly normal Insight: Good insight present (Psych) Judgement: Good judgement present (Psych) Objective Data Vital Signs Vital Signs: Vital Signs - 24 hr 07/25/20 12:21 07/25/20 14:00 07/25/20 15:20 Temperature 97.2 F L 97.6 F Pulse Rate 59 L 67 Respiratory Rate 20 16 Blood Pressure 149/58 H 153/56 H 157/56 H Pulse Oximetry 98 99 07/25/20 18:03 07/25/20 18:15 07/25/20 18:30 Temperature 97.7 F Pulse Rate 100 82 70 Respiratory Rate 17 17 20 Blood Pressure 179/70 H 177/67 H 169/61 H Pulse Oximetry 99 100 95 07/25/20 18:45 07/25/20 18:51 07/25/20 19:05 Temperature 97.8 F Pulse Rate 66 73 69 Respiratory Rate 20 14 18 Blood Pressure 159/67 H 164/58 H 173/60 H Pulse Oximetry 96 94 96 07/25/20 19:20 07/25/20 19:50 07/25/20 20:12 Temperature 98 F 98.4 F Pulse Rate 72 70 85 Respiratory Rate 18 18 16 Blood Pressure 166/64 H 160/62 H Pulse Oximetry 95 97 93 07/25/20 20:50 07/26/20 00:00 07/26/20 01:25 Temperature 98.9 F 100.6 F H 100.6 F H Pulse Rate 80 97 Respiratory Rate 18 18 Blood Pressure 146/64 H 131/51 L Pulse Oximetry 94 90 07/26/20 04:00 07/26/20 07:57 07/26/20 08:17 Temperature 99.7 F H 98 F Pulse Rate 82 73 Respiratory Rate 16 18 Blood Pressure 121/40 L 137/53 L Pulse Oximetry 90 94 93 Intake/Output Intake/Output: Intake & Output 07/23/20 07/24/20 07/25/20 07/26/20 23:59 23:59 23:59 23:59 Intake Total 1500 2200 150 Output Total 0 1400 100 Balance 1500 800 50 Meds/Results Medications: Active Medications Generic Name Dose Route Start Last Admin
[2020-07-26 10:26] LABS: Glucose Point of Care 148 (65-105)
[2020-07-26 11:50] VITALS: BP 143/53; PULSE 67; RESP 18; TEMP 36.7; O2SAT 97
[2020-07-26 12:36] LABS: Glucose Point of Care 212 (65-105)
--- NOTE | 2020-08-09 16:04 | PM.DS ---
DS: Admitting Diagnosis Admitting Diagnosis Admitting Diagnosis: (1) Acute cholecystitis: Code(s): K81.0 - Acute cholecystitis Status: Acute Assessment and Plan: Admitted to general medical floor IV fluids running Evaluated by surgery NPO (2) Nausea vomiting and diarrhea: Code(s): R11.2 - Nausea with vomiting, unspecified; R19.7 - Diarrhea, unspecified Status: Acute Assessment and Plan: Likely secondary to above Supportive care Zofran as needed (3) Diastolic dysfunction: Code(s): I51.89 - Other ill-defined heart diseases Status: Acute Assessment and Plan: Appears to be compensated Continue to monitor Intake and output daily (4) Seasonal allergies: Code(s): J30.2 - Other seasonal allergic rhinitis Status: Acute Assessment and Plan: Stable (5) Bilateral hand numbness: Code(s): R20.0 - Anesthesia of skin Status: Acute Assessment and Plan: Likely secondary to diabetic neuropathy (6) Essential hypertension: Code(s): I10 - Essential (primary) hypertension Status: Acute Assessment and Plan: Unable to restart home meds due to nausea and vomiting IV hydralazine as needed (7) Uncontrolled hypertension: Code(s): I10 - Essential (primary) hypertension Status: Acute Assessment and Plan: Unable to restart home med due to nausea and vomiting Continue to monitor Hydralazine p.r.n. as needed DS: Discharge Diagnosis Discharge Diagnosis (1) Nausea vomiting and diarrhea: Code(s): R11.2 - Nausea with vomiting, unspecified; R19.7 - Diarrhea, unspecified Status: Acute Assessment and Plan: Supportive care Improved Patient has been NPO (2) Acute cholecystitis: Code(s): K81.0 - Acute cholecystitis Status: Acute Assessment and Plan: The patient will go for laparoscopic cholecystectomy Appreciate surgery note (3) Obesity: Code(s): E66.9 - Obesity, unspecified Status: Acute Assessment and Plan: Lifestyle and diet modifications (4) Diastolic dysfunction: Code(s): I51.89 - Other ill-defined heart diseases Status: Acute Assessment and Plan: Stable (5) Bilateral hand numbness: Code(s): R20.0 - Anesthesia of skin Status: Acute Assessment and Plan: Likely secondary to diabetic neuropathy Continue to monitor On gabapentin (6) Essential hypertension: Code(s): I10 - Essential (primary) hypertension Status: Acute Assessment and Plan: Continue to monitor Continue home med Goal 130/80 DS: Summary Hospital Course Reason for hospitalization: Abdominal pain Hospital Course: This is a 70-year-old female with past medical history significant for seasonal allergies neuropathy hypertension type 2 diabetes mellitus orally controlled GERD patient presented to the emergency room due to nausea vomiting abdominal pain for 2 or so days patient was found to have cholelithiasis. Consults obtained: General surgery Procedures: Laparoscopic cholecystectomy Patient was discharged home Status at Discharge Cognitive/behavioral status at discharge: AAOX3 Functional status at discharge: independent ambulation Time Spent with Patient Time attestation: Total time spent providing and/or coordinating discharge services: Exam Narrative: Exam Narrative: Lying in bed Const: General: cooperative, healthy appearing, comfortable, no acute distress, well developed, alert, awake and Physically active Nutritional Appearance: overweight Orientation/consciousness: patient oriented x3 HENMT: Head: normal to inspection, normocephalic and atraumatic Ears: hearing grossly normal bilaterally Face and sinus: normal facial exam Eyes: General: appearance normal, both eyes and all related structures Pupils: Equal, round and reactive pupils present EOM: EOMs intact bilaterally Neck: Neck: full ROM, no lymphadenopathy and
== END 2020-07-26 13:00 | disposition home or self-care (01) | DRG 418 ==
LOC: ANHED 07:04 → ANH3MEDSUR 07:37
PROVIDERS: Nurse Practitioner; Surgery; Admitting Provider Family Medicine; Emergency Provider Emergency Medicine; PCP Family Medicine; Visit Provider Internal Medicine
PROC: 0FT44ZZ Resection of Gallbladder, Percutaneous Endoscopic Approach (ICD-10-PCS; CPT 47562; principal; 2020-07-25 15:30)
DX: K81.0 Acute cholecystitis (principal); I50.32 Chronic diastolic (congestive) heart failure; I11.0 Hypertensive heart disease with heart failure; K21.9 Gastro-esophageal reflux disease without esophagitis; E11.42 Type 2 diabetes mellitus with diabetic polyneuropathy; K58.9 Irritable bowel syndrome, unspecified; J30.2 Other seasonal allergic rhinitis; E66.9 Obesity, unspecified; Z68.33 Body mass index [BMI] 33.0-33.9, adult; Z90.710 Acquired absence of both cervix and uterus; Z90.722 Acquired absence of ovaries, bilateral
CPT/HCPCS: 36415; 71045; 74177; 76705; 80053; 82948; 83690; 84484; 85025; 85610; 85730; 88304; 93005; 96361; 96365; 96366; 96367; 96375; 96376; 99285; A9270; G0378; J0131; J0330; J0360; J1200; J1815; J1885; J1956; J2270; J2405; J2704; J2710; J3010; J7030; J7120; Q9967

== ENCOUNTER 2020-09-29 07:36 | Outpatient (CLI) | payer MEDICARE, BC, SELFPAY ==
--- NOTE | ~2020-09-29 | MM_ITS ---
EXAMINATION: MM screening [facility] BI w henry HISTORY: Screening mammogram TECHNIQUE: Craniocaudal and mediolateral oblique 3-D tomosynthesis images were obtained and synthetic 2-D images were generated. CAD analysis was submitted and interpreted. COMPARISON: 09/28/2019, 07/03/2018, 06/18/2017 BREAST PARENCHYMAL COMPOSITION: There are scattered areas of fibroglandular density. FINDINGS: RIGHT BREAST: There is no evidence of suspicious mass, calcification, or architectural distortion to suggest malignancy. There has been no significant interval change. LEFT BREAST: An asymmetry is present in the middle third of the slightly upper breast 7 cm from the n ipple on the mediolateral oblique view. IMPRESSION: 1. Left breast asymmetry. 2. Additional mammographic views and possible breast ultrasound are recommended. BI-RADS Category 0: Incomplete: Needs additional imaging evaluation. Reviewed, dictated and finalized at location A. IMPRESSION: 1. Left breast asymmetry. 2. Additional mammographic views and possible breast ultrasound are recommended . BI-RADS Category 0: Incomplete: Needs additional imaging evaluation.
--- NOTE | ~2020-09-29 | DEXA_ITS ---
Bone Density Report Name: Heidy Arciniega Age: 70 Sex: Female Ethnicity: White Date of : 1950 Indication: postmenopausal; height loss; hysterectomy; Referring Provider: FERNIE BEY Study: Bone densitometry was performed. Exam Date: September 29, 2020 Accession number: [id number] Bone Density: Region BMD T-score Z-score Classification AP Spine (L1, L4) 1.111 0.7 2.8 Normal Femoral Neck (Left) 0.813 -0.3 1.5 Normal Total Hip (Left) 0.957 0.1 1.7 Normal Total Hip Bilateral Avg 0.965 0.2 1.8 Normal Femoral Neck (Right) 0.785 -0.6 1.2 Normal Total Hip (Right) 0.972 0.2 1.8 Normal World Health Organization criteria for BMD impression classify patients as: Normal (T-score at or above -1.0), Osteopenia (T-score between -1.0 and -2.5), or Osteoporosis (T-score at or below -2.5). 10-year Fracture Risk: FRAX not reported because: All T-scores for Spine Total, Hip Total, Femoral Neck at or above -1.0 Treated for osteoporosis Clinical Information Provided by Patient: Is being treated for osteoporosis Has the following medical conditions: Hysterectomy Patient maximum height was 65 Menopause Age: 50 No regular weight bearing exercise Drinks caffeinated beverages Onset of menses at age 13 Number of children 3 Impression: The patient has normal bone mass. Discussion: It is important to ask patients whether they are taking their medications and to encourage continued and appropriate compliance with their osteoporosis therapies to reduce fracture risk. It is also important to review their risk factors and encourage appropriate calcium and vitamin D intakes, exercise, fall prevention and other lifestyle measures. Follow-Up: Consider a repeat BMD and Vertebral Fracture Assessment (VFA) exam in 2 years or sooner if medically necessary, to reassess this patient's status. Reported by: [facility] on 09/29/2020 8:04:00 AM. Reviewed, dictated and finalized at location APeyton FRIAS
== END 2020-09-29 07:37 | disposition home or self-care (01) ==
LOC: ANHIMG 07:38
PROVIDERS: PCP Family Medicine; Visit Provider Obstetrics & Gynecology
DX: Z12.31 Encounter for screening mammogram for malignant neoplasm of breast (principal); Z78.0 Asymptomatic menopausal state; R92.8 Other abnormal and inconclusive findings on diagnostic imaging of breast
CPT/HCPCS: 77063; 77067; 77080

== ENCOUNTER 2020-10-23 13:01 | Outpatient (CLI) | payer MEDICARE, BC, SELFPAY ==
--- NOTE | ~2020-10-23 | MM_ITS ---
EXAMINATION: MM diagnostic mammo unilat LT HISTORY: Left breast asymmetry on screening mammogram TECHNIQUE: Additional 3-D tomosynthesis images of the left breast were performed and synthetic 2-D im ages were generated. CAD analysis was submitted and interpreted. COMPARISON: 09/29/2020, 09/28/2019, 07/03/2018, 06/18/2017 FINDINGS: There is a return to baseline fibroglandular appearance with spot compression of the left b reast in the area questioned on screening mammogram. IMPRESSION: 1. No mammographic evidence of malignancy. 2. Recommend routine screening mammography in one year. BI-RADS Category 1: Negative Reviewed, dictated and finalized at location A.
== END 2020-10-23 13:02 | disposition home or self-care (01) ==
LOC: ANHIMG 13:02
PROVIDERS: PCP Family Medicine; Visit Provider Obstetrics & Gynecology
DX: R92.8 Other abnormal and inconclusive findings on diagnostic imaging of breast (principal)
CPT/HCPCS: 77065

== ENCOUNTER 2020-12-05 08:22 | Outpatient (CLI) | payer MEDICARE, BC, SELFPAY ==
--- NOTE | 2020-12-05 12:35 | WPDPFTINT ---
PFT Procedure Performed PFT Procedure Performed Plethysmography (Lung Vol) Diffusing Cap (DLCO) Flow Vol Loop Spirometry w/o Bronchodil PFT Interpretation This is a pulmonary function test with spirometry, plethysmography and diffusing capacity. The test was performed and results interpreted in accordance with the 2019 and 2005 ATS/ERS Task Force guidelines respectively using the Global Lung Function Initiative-2012 reference equations. Patient demonstrated good effort and cooperation. Reproducibility criteria were met. The quality of the spirometry maneuver was Grade A. Findings: Spirometry: the contour of the inspiratory and expiratory flow tracing are normal. The FVC is 2.54 L, 92% predicted. The FEV1 is 1.81 L, 85% predicted, the FEV1: FVC ratio 71%. Plethysmography: The total lung capacity is 4.33 L, 88% predicted. The functional residual capacity is 2.06 L, 74% predicted. The residual volume is 1.70, 80% predicted. Diffusing capacity: The absolute diffusion capacity is 16.1, 80% predicted. The diffusing capacity corrected for alveolar volume is 4.32, 100% predicted. Impression: The spirometry is normal without evidence of an obstructive abnormality. The lung volumes are normal. The diffusing capacity is normal. There are no prior studies for comparison
== END 2020-12-05 08:23 | disposition home or self-care (01) ==
LOC: ANHPFT 08:25
PROVIDERS: PCP Family Medicine; Visit Provider Physician Assistant Medical
DX: R06.02 Shortness of breath (principal)
CPT/HCPCS: 94375; 94726; 94729

== ENCOUNTER 2021-03-30 01:51 | Emergency (ER) | payer MEDICARE, BC, SELFPAY ==
--- NOTE | ~2021-03-30 | XR_ITS ---
EXAMINATION: XR chest 1V portable INDICATION: Hypertension TECHNIQUE: Portable AP chest at 0657 hours COMPARISON: 07/24/2020 FINDINGS: The lungs are free of acute opacities. There is no pleural effusion or pneumothorax. The ca rdiomediastinal silhouette is normal. IMPRESSION: 1. No acute cardiopulmonary abnormality. Reviewed, dictated and finalized at location A. E MANAGER
[2021-03-30 01:58] VITALS: BP 191/79; PULSE 67; RESP 17; TEMP 37; O2SAT 98
[2021-03-30 06:06] VITALS: BP 199/64; PULSE 78; RESP 18; O2SAT 100
--- NOTE | 2021-03-30 06:18 | ECG_ITS ---
Measurements Intervals Rover Rate: 51 P: 50 NC: 183 QRS: -11 QRSD: 98 T: -5 QT: 457 QTc: 422 Interpretive Statements SINUS BRADYCARDIA WITH SINUS ARRHYTHMIA LOW QRS VOLTAGE IN PRECORDIAL LEADS INCOMPLETE RIGHT BUNDLE BRANCH BLOCK MINIMAL Q WAVES- HIGH LATERAL LEADS BORDERLINE T WAVE ABNORMALITY- ANT/INF LEADS BORDERLINE ECG Electronically Signed On 03-30-2021 7:45:07 REPLANTER by David Villalobos D.O.
--- NOTE | 2021-03-30 06:21 | ED.GENADULT ---
HPI - General Adult General Chief complaint: Recheck/Abnormal Lab/Rx Stated complaint: high bp Time Seen by Provider: 03/30/21 06:10 History of Present Illness HPI narrative: Patient is a 70-year-old female who presents the emergency department with chief complaint of headache and dizziness. Patient reports she has history of hypertension and her primary care physician has been trying to manage her blood pressure. They have increased and decreased her dose of clonidine reports she is taking sometimes 0.1 or sometimes 0.2 mg of clonidine twice daily the patient also has been taking hydralazine but they have been adjusting this dose over the last several weeks because she has had issues with both low and high blood pressure. Patient states whenever her blood pressure gets high she starts developing a headache and reports to a sensation of feeling dizzy the patient denies chest pain denies shortness of breath patient denies focal neurological deficit. Patient states that this evening her blood pressure was in the 200s and reports he took an extra dose of clonidine per recommendation by her primary care physician. The patient states that she continued to feel headache and reports she still felt dizzy Related Data Home Medications Medication Instructions Recorded Confirmed gabapentin 100 mg capsule 300 mg PO TID cap 11/24/19 01/23/21 Benefiber Healthy Shape 4 g PO DAILY 04/20/20 01/23/21 aspirin 81 mg PO DAILY 04/20/20 01/23/21 vitamin B complex [B 1 tablet PO DAILY 04/20/20 01/23/21 Complex-Vitamin B12] cetirizine 10 mg tablet 10 mg PO DAILY PRN 05/11/20 01/23/21 fluticasone propionate 50 1 spray INTRANASAL DAILY 05/11/20 01/23/21 mcg/actuation nasal spray,suspension lactobacillus combination no.8 3 3,000 mmu cells PO DAILY 05/11/20 01/23/21 billion cell capsule melatonin 5 mg capsule 5 mg PO HS 05/11/20 01/23/21 Allergies Allergy/AdvReac Type Severity Reaction Status Date / Time adhesive Allergy Unknown RASH Verified 03/30/21 01:57 codeine Allergy Unknown Unknown Verified 03/30/21 01:57 Penicillins Allergy Unknown Hives / Verified 03/30/21 01:57 Red Face amlodipine [From [facility]] AdvReac Intermediate Swelling Verified 03/30/21 01:57 epinephrine AdvReac Unknown Palpitation Verified 03/30/21 01:57 s morphine AdvReac Hallucinati Verified 03/30/21 01:57 ng Review of Systems Review of Systems: A 10 system review of systems was completed on the patient and is negative except for what is stated in the HPI. Nursing and ancillary documentation was reviewed. [facility] Past Medical History Medical History Acid reflux BMI 32.0-32.9,adult BMI 34.0-34.9,adult Deviated septum Diabetes Edema Elevated lipids Hypertension Irritable bowel Surgical History Surgical History H/O shoulder surgery H/O total hysterectomy with bilateral salpingo-oophorectomy (BSO) Open TYREL-BSO in September 2018 H/O tubal ligation History of 2 sections History of removal of skin mole Hx laparoscopic cholecystectomy Hx of tonsillectomy Family History Family History Daughter Carcinoma of colon Father Acute myocardial infarction Cerebrovascular accident Hypertension Mother Acute myocardial infarction Hypertension Gallbladder disease Sibling Diabetes mellitus Mother Diabetes mellitus Family history of coronary artery disease Family history of hypercholesterolemia Hypertension Father Cerebrovascular accident Family history of coronary artery disease Family history of hypercholesterolemia Hypertension Grandparent Diabetes mellitus Sibling Diabetes mellitus Family history of hypercholesterolemia Hypertension Other Family history of malignant neoplasm of breast Social History Social History (Reviewed 03/14
[2021-03-30] MEDS: hydrALAZINE HCL 20 MG/ML VIAL 10 MG IV PUSH (06:31)
[2021-03-30 06:56] VITALS: BP 150/61; PULSE 54
[2021-03-30 06:56] LABS: Basophils Absolute Auto 0.1 K/mm3 (0.0-0.1); Basophils Percent Auto 1.2 % (0.2-1.2); Eosinophils Absolute Auto 0.2 K/mm3 (0-0.3); Eosinophils Percent Auto 3.1 % (0-4.4); Hematocrit 38.9 % (37.0-47.0); Hemoglobin 12.5 g/dL (12.0-15.0); Immature Granulocyte Absolute 0.01 K/mm3 (0.00-0.031); Immature Granulocyte Percent A 0.2 % (0-0.5); Lymphocytes Absolute Auto 1.53 K/mm3 (0.9-3.2); Lymphocytes Percent Auto 29.8 % (18.3-44.2); Mean Corpuscular HGB Conc 32.1 g/dl (32-36); Mean Corpuscular Hemoglobin 28.5 pg (26-34); Mean Corpuscular Volume 88.6 fl (80-100); Monocytes Absolute Auto 0.5 K/mm3 (0.1-0.6); Monocytes Percent Auto 8.9 % (2.6-8.5); Neutrophils Absolute Auto 2.9 K/mm3 (1.3-6.7); Neutrophils Percent Auto 56.8 % (45.5-73.1); Platelet Count Result 207 k/mm3 (150-375); Red Blood Count 4.39 M/mm3 (4.2-5.4); Red Cell Distribution Width 13.7 % (11.5-14.5); White Blood Count 5.1 K/mm3 (4.5-10.0)
[2021-03-30 07:11] LABS: Troponin I < 0.012 ng/mL (0.000-0.034)
[2021-03-30 07:19] LABS: Alanine Aminotransferase 24 U/L (4-35); Albumin Level 4.2 g/dL (3.5-5.1); Alkaline Phosphatase 78 U/L (38-126); Anion Gap 10 mmol/L (8-16); Aspartate Amino Transferase 25 U/L (14-36); Bilirubin,Total 0.3 mg/dL (0.2-1.3); Blood Urea Nitrogen 14 mg/dL (7-17); Calcium 9.1 mg/dL (8.4-10.2); Carbon Dioxide 28 mmol/L (22-30); Chloride 100 mmol/L (98-107); Estimated CRCL calculation 78 ml/min; Estimated Glomerular Filt Rate > 60; Glucose 135 mg/dL (65-110); Sodium 138 mmol/L (137-145)
[2021-03-30 07:37] LABS: Add Urine Microscopic? YES; Appearance Urine Cloudy (Clear); Bilirubin Urine Negative (Negative); Blood Urine Negative (Negative); Color Urine Yellow (Yellow); Glucose Urine UA Negative (Negative); Ketones Urine Negative (Negative); Leukocyte Esterase Ur 3+ LEU/UL (Negative); Mucus Urine Rare /lpf; Nitrate Urine Negative (Negative); Protein Urine Negative (Negative); Specific Grav Ur 1.015 (1.001-1.035); Squamous Epithelial Cell Urine Few /hpf (Few); Urobilinogen Urine Negative mg/dL (<2.0); WBC Urine >75 /hpf
[2021-03-30 07:44] VITALS: BP 157/53; PULSE 54; RESP 18; O2SAT 96
== END 2021-03-30 07:47 | disposition home or self-care (01) ==
PROVIDERS: Emergency Provider Emergency Medicine; PCP Family Medicine
DX: I10 Essential (primary) hypertension (principal); R51.9 Headache, unspecified; E11.9 Type 2 diabetes mellitus without complications; Z79.899 Other long term (current) drug therapy
CPT/HCPCS: 36415; 71045; 80053; 81001; 84484; 85025; 87086; 93005; 96374; 99284; J0360

== ENCOUNTER 2021-03-31 17:55 | Emergency (ER) | payer MEDICARE, BC, SELFPAY ==
[2021-03-31] VITALS (19 sets, daily range): BP systolic 155–229; BP diastolic 65–87; PULSE 65–112; RESP 16–26; TEMP 36.2–36.6; O2SAT 98–100
--- NOTE | ~2021-03-31 | CT_ITS ---
EXAMINATION: CT brain wo con DATE: 04/01/2021 00:41 INDICATION: Headache. TECHNIQUE: Computed tomography (CT) of the head was performed without intravenous contrast. The mA wa s adjusted according to patient size. Iterative reconstruction technique was employed. The dose-lengt h product was 605.33 mGy-cm. COMPARISON: Head CT 04/20/2020 FINDINGS: There is no intracranial hemorrhage, acute infarction, or abnormal intracranial mass lesion . The ventricles are normal in size. There is mild mucosal thickening in the paranasal sinuses. The m astoid air cells are normal. There are likely changes of ocular lens replacement surgeries. IMPRESSION: 1. Normal brain. Reviewed, dictated and finalized at location A. KET INSPECTOR IMPRESSION: 1. Normal brain.
--- NOTE | 2021-03-31 21:52 | ED.GENADULT ---
HPI - General Adult General Chief complaint: Recheck/Abnormal Lab/Rx <Ian Scherer MD - Last Filed: 04/09/21 12:54> Stated complaint: High Blood Pressure, Seen last Night <Ian Scherer MD - Last Filed: 04/09/21 12:54> Time Seen by Provider: 03/31/21 21:33 <Ian Scherer MD - Last Filed: 04/09/21 12:54> History of Present Illness HPI narrative: 71-year-old female history of hypertension presents emerged department for evaluation of headache and high blood pressure. Over the last few days patient has been working with her primary care physician in order to help adjust her blood pressure medications. Patient was evaluated in the emergency department yesterday for similar symptoms. Today patient did have a discussion with her social media marketer and they did restart her on amlodipine 5 mg. Patient had been on this previously but due to swelling on the higher doses it was decided to attempt the lower dose. Patient is still having high blood pressure upon arrival to the emergency department. Patient has taken all of her meds except for her nighttime meds which are melatonin and gabapentin. Patient does describe a posterior headache that radiates into her neck. Patient states she has had this headache previously with high blood pressure. <Ian Scherer MD - Last Filed: 04/09/21 12:54> Related Data Home medications: Home Medications Medication Instructions Recorded Confirmed gabapentin 100 mg capsule 300 mg PO TID cap 11/24/19 04/04/21 Benefiber Healthy Shape 4 g PO DAILY 04/20/20 04/04/21 aspirin 81 mg PO DAILY 04/20/20 04/04/21 vitamin B complex [B 1 tablet PO DAILY 04/20/20 04/04/21 Complex-Vitamin B12] cetirizine 10 mg tablet 10 mg PO DAILY PRN 05/11/20 04/04/21 fluticasone propionate 50 1 spray INTRANASAL DAILY 05/11/20 04/04/21 mcg/actuation nasal spray,suspension lactobacillus combination no.8 3 3,000 mmu cells PO DAILY 05/11/20 04/04/21 billion cell capsule melatonin 5 mg capsule 5 mg PO HS 05/11/20 04/04/21 <Ian Scherer MD - Last Filed: 04/09/21 12:54> Allergies/adverse reactions: Allergies Allergy/AdvReac Type Severity Reaction Status Date / Time adhesive Allergy Unknown RASH Verified 04/04/21 09:15 codeine Allergy Unknown Unknown Verified 04/04/21 09:15 Penicillins Allergy Unknown Hives / Verified 04/04/21 09:15 Red Face amlodipine [From [facility]] AdvReac Intermediate Swelling Verified 04/04/21 09:15 epinephrine AdvReac Unknown Palpitation Verified 04/04/21 09:15 s morphine AdvReac Hallucinati Verified 04/04/21 09:15 ng <Ian Scherer MD - Last Filed: 04/09/21 12:54> Review of Systems Review of Systems: CONSTITUTIONAL: Denies fever, chills, or sweats. EYES: Denies visual changes, redness, or discharge. ENT: Denies rhinorrhea, congestion, sore throat, or otalgia. CARDIOVASCULAR: Denies chest pain, palpitations, or edema. RESPIRATORY: Denies cough or dyspnea. GASTROINTESTINAL: Denies abdominal pain, nausea, vomiting, or diarrhea. GENITOURINARY: Denies dysuria or hematuria. SKIN: Denies rash or itching. MUSCULOSKELETAL: Denies back pain, joint pain, or myalgia. NEUROLOGIC: Reports headache but numbness, or weakness. PSYCHIATRIC: Denies anxiety or depression. <Ian Scherer MD - Last Filed: 04/09/21 12:54> [facility] Past Medical History Medical History: Medical History Acid reflux BMI 31.0-31.9,adult BMI 32.0-32.9,adult BMI 34.0-34.9,adult Deviated septum Diabetes Edema Elevated lipids Hypertension Irritable bowel <Ian Scherer MD - Last Filed: 04/09/21 12:54> Surgical History Surgical History: Surgical History H/O shoulder surgery H/O total hysterectomy with bilateral salpingo-oophorectomy (BSO) Open TYREL-BSO in September 2018 H/O tubal ligation History of 2 sections History of removal of skin
[2021-03-31] MEDS: cloNIDine HCL 0.1 MG TABLET PO (22:32)
[2021-03-31] MEDS: hydrALAZINE HCL 20 MG/ML VIAL 10 MG IV PUSH ×2 (22:32→23:05)
[2021-03-31 22:33] LABS: Basophils Absolute Auto 0.1 K/mm3 (0.0-0.1); Basophils Percent Auto 0.6 % (0.2-1.2); Eosinophils Absolute Auto 0.2 K/mm3 (0-0.3); Eosinophils Percent Auto 2.1 % (0-4.4); Hematocrit 41.8 % (37.0-47.0); Hemoglobin 13.7 g/dL (12.0-15.0); Immature Granulocyte Absolute 0.03 K/mm3 (0.00-0.031); Immature Granulocyte Percent A 0.4 % (0-0.5); Mean Corpuscular HGB Conc 32.8 g/dl (32-36); Mean Corpuscular Hemoglobin 29.4 pg (26-34); Mean Corpuscular Volume 89.7 fl (80-100); Mean Platelet Volume 10.9 fl (7.4-10.4); Monocytes Absolute Auto 0.6 K/mm3 (0.1-0.6); Monocytes Percent Auto 7.8 % (2.6-8.5); Neutrophils Absolute Auto 5.2 K/mm3 (1.3-6.7); Neutrophils Percent Auto 67.1 % (45.5-73.1); Platelet Count Result 213 k/mm3 (150-375); Red Blood Count 4.66 M/mm3 (4.2-5.4); Red Cell Distribution Width 13.8 % (11.5-14.5); White Blood Count 7.7 K/mm3 (4.5-10.0)
[2021-03-31] MEDS: fentaNYL CITRATE INJ (*CRX) 100 MCG/2 ML VIAL 50 MCG IV PUSH (22:33)
[2021-03-31 22:54] LABS: Alanine Aminotransferase 26 U/L (4-35); Albumin Level 4.7 g/dL (3.5-5.1); Alkaline Phosphatase 101 U/L (38-126); Anion Gap 11 mmol/L (8-16); Aspartate Amino Transferase 29 U/L (14-36); Bilirubin,Total 0.5 mg/dL (0.2-1.3); Blood Urea Nitrogen 12 mg/dL (7-17); Calcium 9.7 mg/dL (8.4-10.2); Carbon Dioxide 28 mmol/L (22-30); Chloride 99 mmol/L (98-107); Estimated CRCL calculation 76 ml/min; Estimated Glomerular Filt Rate > 60; Glucose 130 mg/dL (65-110); Potassium 3.6 mmol/L (3.4-5.0); Sodium 138 mmol/L (137-145)
[2021-03-31] MEDS: LABETALOL HCL INJ 100 MG/20 ML VIAL 20 MG IV PUSH (23:44)
[2021-04-01] VITALS (35 sets, daily range): BP systolic 158–173; BP diastolic 56–75; PULSE 82–95; RESP 16–24; O2SAT 94–98
[2021-04-01] MEDS: ACETAMINOPHEN 500 MG TABLET 1000 MG PO (00:54)
[2021-04-01] MEDS: SODIUM CHLORIDE 0.9% IV 250 ML 500 ML (03:30)
[2021-04-01] MEDS: METOCLOPRAMIDE HCL INJ 10 MG/2 ML VIAL IV PUSH (03:37)
[2021-04-01] MEDS: diphenhydrAMINE HCl INJ 50 MG/ML VIAL 25 MG IV PUSH (03:37)
== END 2021-04-01 05:45 | disposition home or self-care (01) ==
PROVIDERS: Emergency Provider Emergency Medicine; PCP Family Medicine
DX: I10 Essential (primary) hypertension (principal); E11.9 Type 2 diabetes mellitus without complications
CPT/HCPCS: 36415; 70450; 80053; 85025; 96361; 96374; 96375; 99284; A9270; J0360; J1200; J2765; J3010; J7050

== ENCOUNTER 2021-04-02 14:21 | Emergency (ER) | payer MEDICARE, BC, SELFPAY ==
[2021-04-02 15:12] VITALS: BP 160/62; PULSE 71; RESP 18; TEMP 36.6; O2SAT 98
[2021-04-02 18:01] VITALS: BP 183/78; PULSE 77; RESP 25; O2SAT 100
[2021-04-02] MEDS: ACETAMINOPHEN 500 MG TABLET 1000 MG PO (18:04)
[2021-04-02] MEDS: cloNIDine HCL 0.1 MG TABLET 0.2 MG PO (18:59)
[2021-04-02] MEDS: hydrALAZINE HCL 50 MG TABLET PO (18:59)
[2021-04-02 20:13] VITALS: BP 149/61; PULSE 71; RESP 20; O2SAT 97
--- NOTE | 2021-04-02 20:26 | ED.GENADULT ---
HPI - General Adult General Chief complaint: Recheck/Abnormal Lab/Rx Stated complaint: high blood pressure, headache Time Seen by Provider: 04/02/21 16:59 History of Present Illness HPI narrative: Patient is a 71-year-old female who presents ER with elevated blood pressures. 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 Recently became worse after a decrease in her clonidine. She has since had a go back up. She reports has been having occasional headaches. Today is very mild and posterior and throbbing. She does not like to take pain medication so it has gone untreated. No chest pain or chest pressure or difficulty breathing. No focal neurologic weakness. Blood pressure 160 upon arrival to the ED. Related Data Home Medications Medication Instructions Recorded Confirmed gabapentin 100 mg capsule 300 mg PO TID cap 11/24/19 01/23/21 Benefiber Healthy Shape 4 g PO DAILY 04/20/20 01/23/21 aspirin 81 mg PO DAILY 04/20/20 01/23/21 vitamin B complex [B 1 tablet PO DAILY 04/20/20 01/23/21 Complex-Vitamin B12] cetirizine 10 mg tablet 10 mg PO DAILY PRN 05/11/20 01/23/21 fluticasone propionate 50 1 spray INTRANASAL DAILY 05/11/20 01/23/21 mcg/actuation nasal spray,suspension lactobacillus combination no.8 3 3,000 mmu cells PO DAILY 05/11/20 01/23/21 billion cell capsule melatonin 5 mg capsule 5 mg PO HS 05/11/20 01/23/21 Allergies Allergy/AdvReac Type Severity Reaction Status Date / Time adhesive Allergy Unknown RASH Verified 03/31/21 21:50 codeine Allergy Unknown Unknown Verified 03/31/21 21:50 Penicillins Allergy Unknown Hives / Verified 03/31/21 21:50 Red Face amlodipine [From [facility]] AdvReac Intermediate Swelling Verified 03/31/21 21:50 epinephrine AdvReac Unknown Palpitation Verified 03/31/21 21:50 s morphine AdvReac Hallucinati Verified 03/31/21 21:50 ng Review of Systems Review of Systems: All systems reviewed & are unremarkable except as noted in HPI and below Constitutional: Constitutional: Denies chills and Denies fever(s) Eyes: Eyes: Denies change in vision and Denies photophobia Cardiovascular: Cardiovascular: Denies chest pain, Denies rapid heart rate and Denies radiating jaw, neck or arm pain Respiratory: Respiratory: Denies cough and Denies dyspnea Gastrointestinal: Gastrointestinal: Denies nausea and Denies vomiting Neurologic: Reports dizziness (Previously but not today), Reports headache(s), Denies focal weakness and Denies numbness PMFSH Past Medical History Medical History Acid reflux BMI 32.0-32.9,adult BMI 34.0-34.9,adult Deviated septum Diabetes Edema Elevated lipids Hypertension Irritable bowel Surgical History Surgical History H/O shoulder surgery H/O total hysterectomy with bilateral salpingo-oophorectomy (BSO) Open TYREL-BSO in September 2018 H/O tubal ligation History of 2 sections History of removal of skin mole Hx laparoscopic cholecystectomy Hx of tonsillectomy Family History Family History Daughter Carcinoma of colon Father Acute myocardial infarction Cerebrovascular accident Hypertension Mother Acute myocardial infarction Hypertension Gallbladder disease Sibling Diabetes mellitus Mother Diabetes mellitus Family history of coronary artery disease Family history of hypercholesterolemia Hypertension Father Cerebrovascular accident Family history of coronary artery disease Family history of hypercholesterolemia Hypertension Grandparent Diabetes mellitus Sibling Diabetes mellitus Family history of hypercholesterolemia Hypertension Other Family history of malignant neoplasm of breast Social History Social History (Reviewed 03/30/21 @ 06:23 by Jared Nuñez
== END 2021-04-02 20:43 | disposition home or self-care (01) ==
PROVIDERS: Emergency Provider Emergency Medicine; PCP Family Medicine
DX: I10 Essential (primary) hypertension (principal); K21.9 Gastro-esophageal reflux disease without esophagitis; E11.9 Type 2 diabetes mellitus without complications; K58.9 Irritable bowel syndrome, unspecified; Z79.82 Long term (current) use of aspirin; Z79.84 Long term (current) use of oral hypoglycemic drugs
CPT/HCPCS: 99283; A9270

== ENCOUNTER → 2021-04-16 01:18 | Outpatient (CLI) | payer MEDICARE, BC, SELFPAY ==
[2021-04-17 13:54] LABS: SARS-CoV-2 RNA PCR Negative
== END ==
PROVIDERS: PCP Family Medicine; Visit Provider Physician Assistant Medical
DX: R68.89 Other general symptoms and signs (principal); Z20.822 Contact with and (suspected) exposure to COVID-19
CPT/HCPCS: C9803; U0003; U0005

== ENCOUNTER 2021-04-18 07:10 | Outpatient (CLI) | payer MEDICARE, BC, SELFPAY ==
--- NOTE | 2021-04-18 07:59 | ECHO_ITS ---
Patient Info Name: Heidy Arciniega Age: 71 years : 1950 Gender: Female Ht: 64 in Wt: 185 lbs BSA: 1.98 m2 HR: 58 bpm BP: 148 / 79 mmHg Technical Quality: Good Exam Date: 04/18/2021 8:13 AM Exam Location: [facility] Patient Status: Outpatient Admit Date: 04/18/2021 Staff Ordering Physician: David Villalobos DO Enrober Tender: Larry Diallo RDCS, RT Attending Provider: David Villalobos DO Referring Physician: Wilfredo ARDON; Exam Type: CA echo doppler color flow Study Info Indications I35.0 - Nonrheumatic aortic (valve) stenosis Complete two-dimensional, color flow and Doppler transthoracic echocardiogram is performed. Strain analysis performed. Summary 1. Complete two-dimensional, color flow and Doppler transthoracic echocardiogram is performed. 2. Left ventricular chamber dimension is normal. 3. Left ventricular systolic function is normal, estimated at 60-65%. 4. The left ventricular diastolic function is grade I diastolic dysfunction. 5. E/e' 14 is mildly elevated. 6. Global longitudinal strain is normal at -19.0%. 7. Left atrial chamber dimension is mildly enlarged. 8. There is mild aortic valve sclerosis. 9. There is mild aortic valve regurgitation. 10. There is mild aortic valve stenosis based on a peak velocity of 205 cm/s, mean gradient of 8 mmHg, and aortic valve area of 1.8 cm2. 11. There is mild mitral valve regurgitation. 12. Dilated inferior vena cava with >50% collapse upon inspiration consistent with elevated right atrial pressure, 10 mmHg. Left Ventricle E/e' 14 is mildly elevated. Global longitudinal strain is normal at -19.0%. Left ventricular chamber dimension is normal. Left ventricular systolic function is normal, estimated at 60-65%. The left ventricular diastolic function is grade I diastolic dysfunction. Right Ventricle Right ventricular chamber dimension is normal. Right ventricular systolic function is normal. Left Atria Left atrial chamber dimension is mildly enlarged. Right Atria Right atrial chamber dimension is normal. Aortic Valve There is mild aortic valve stenosis based on a peak velocity of 205 cm/s, mean gradient of 8 mmHg, and aortic valve area of 1.8 cm2. The aortic valve is trileaflet. There is mild aortic valve sclerosis. There is mild aortic valve regurgitation. Pulmonic Valve There is no pulmonic regurgitation. Mitral Valve There is no mitral valve stenosis. There is mild mitral valve regurgitation. Tricuspid Valve There is no tricuspid valve regurgitation. Pericardium/Pleural There is no pericardial effusion. Inferior Vena Cava Dilated inferior vena cava with >50% collapse upon inspiration consistent with elevated right atrial pressure, 10 mmHg. Aorta The aortic root size at the sinus of Valsalva is normal. Left Ventricular Outflow Tract Name Value Normal LVOT 2D LVOT Diameter 2.0 cm LVOT Doppler LVOT Peak Gradient 6 mmHg LVOT Mean Gradient 3 mmHg LVOT VTI 29 cm LVOT VTI/AV VTI Ratio 0.6 LVOT S
== END 2021-04-18 07:11 | disposition home or self-care (01) ==
LOC: ANHCARD 07:12
PROVIDERS: PCP Family Medicine; Visit Provider Internal Medicine Cardiovascular Disease
DX: I35.1 Nonrheumatic aortic (valve) insufficiency (principal); I34.0 Nonrheumatic mitral (valve) insufficiency
CPT/HCPCS: 93306

== ENCOUNTER 2021-08-23 07:01 | Outpatient (CLI) | payer MEDICARE, BC, SELFPAY ==
--- NOTE | 2021-08-28 14:33 | WPDSLEEPSTUD ---
Sleep Study Date of Study: 08/23/21 Ordering Provider: Matilde Titus MD Interpreting Physician: Kayla Garcia DO Sleep Study Type: CPAP Titration Height: 1.63 m Weight: 85.275 kg Body Mass Index: 32.2 Neck Circumference (inches): 14.5 [place]: 16 Reason for Sleep Study The patient's previous CPAP machine was recalled. She was given a replacement APAP but states that her sleep was better with her previous machine. Sleep History The patient is a 71-year-old female with GERD, diabetes, hyperlipidemia, hypertension, irritable bowel syndrome, periodic limb movement disorder, anxiety, anemia and insomnia that had a sleep study ordered due to difficulty tolerating auto. The patient's original sleep study showed an AHI of 12.9. She had a PAP Titration study where she was prescribed 6 cm H2O. She had a repeat study at [facility] where she was prescribed 13 cm H2O. Her current machine was recalled and she was given autoPAP. She had difficulty tolerating autoPAP so she is here for a PAP Titration study. The patient states that she occasionally awakens from sleep short of breath. She occasionally awakens at night with heartburn, belching or cough. She constantly snores. She frequently has trouble sleeping when she has a cold. She occasionally wakes up gasping for air throughout the night. She frequently has breathing problems at night observed by herself. She frequently sweats excessively at night. She frequently has heart palpitations or irregular heartbeats during the night. She frequently falls asleep during the day. She rarely falls asleep while driving. She denies sleep paralysis, cataplexy and hypnagogic/ hypnopompic hallucinations. she denies feeling afraid of going to sleep. She rarely has nightmares. She denies remembering her dreams. She constantly has thoughts racing through her mind. He rarely feels sad or depressed. She frequently has anxiety. She frequently has muscular tension. She denies noticing parts of her body jerk. She frequently kicks during the night. She frequently has crawling and aching feelings in her legs and occasionally has leg pain during the night. She occasionally grinds her teeth during sleep but rarely awakens with morning jaw pain. She is constantly bothered by pain during the day and frequently awakened by pain during the night. She frequently wakes up feeling stiff in morning. She frequently wakes up with sore achy muscles. She frequently wakes up with pain in the neck, spine and other joints. She goes to bed between 10 and 10:30 p.m. on both weekdays and weekends. She is able to fall asleep within minutes if she takes her temazepam as prescribed. She wakes up 2-3 times throughout the night. When she awakens, she will lay in bed. If she is unable to fall asleep she will get up, read or watch TV. She can fall asleep within 30 minutes to 2 hours. She wakes up between 7 and 8:00 a.m. on both weekdays and weekends. She typically gets 7-8 hours of sleep per night. She does not stay in bed after her waking up in the morning. She currently lives alone. She will consume decaffeinated coffee or tea within 2 hours bedtime. She does not engage in physical exercise before bedtime. She will read watch television before falling asleep. She will take naps in the afternoon or the evening but they are not refreshing. She does not consume caffeinated beverages throughout the day. She denies tobacco, alcohol and recreational drug use. [facility] Past Medical History Medical History Acid reflux BMI 31.0-31.9,adult BMI 32.0-32.9,adult BMI 34.0-34.9,adult Deviated septum Diabetes Edema Elevated lipids Hypertension Irritable bowel PLMD (periodic limb movement disorder) Surgical History Surgical History H/O shoulder surgery H/O total hysterectomy with bilateral salpingo-oopho
[2021-08-28 17:35] VITALS: BMI 32.2
== END 2021-08-24 06:13 | disposition home or self-care (01) ==
LOC: ANHCSM 07:02
PROVIDERS: PCP Family Medicine; Visit Provider Internal Medicine Critical Care Medicine
DX: G47.33 Obstructive sleep apnea (adult) (pediatric) (principal)
CPT/HCPCS: 95811

== ENCOUNTER 2021-09-27 06:52 | Emergency (ER) | payer MEDICARE, BC, SELFPAY ==
--- NOTE | ~2021-09-27 | XR_ITS ---
EXAMINATION: XR hand LT min 3V DATE: 09/27/2021 07:57 INDICATION: Increasing left hand pain post fall from ladder 6 days prior. TECHNIQUE: Posteroanterior, oblique and lateral views of the left hand were obtained. COMPARISON: None. FINDINGS: Alignment is normal. No fracture. Polyarticular osteoarthritis, moderate severity at the first carpom etacarpal and first interphalangeal joints and mild at multiple metacarpophalangeal and remaining int erphalangeal joints with distal predominance. Soft tissues are unremarkable. IMPRESSION: 1. Mild to moderate polyarticular osteoarthritis. No acute osseous abnormality. Reviewed, dictated and finalized at location A.
--- NOTE | ~2021-09-27 | XR_ITS ---
EXAMINATION: XR shoulder LT min 2V DATE: 09/27/2021 07:57 INDICATION: Increasing left shoulder pain post fall from ladder 6 days prior TECHNIQUE: AP internally and externally rotated, AP oblique externally rotated and transscapular Y vi ews of the left shoulder were obtained. COMPARISON: None FINDINGS: Normal alignment. No fracture.Mild glenohumeral and acromioclavicular osteoarthritis. Small globular region of amorphous calcification along the posterior facet of the greater tuberosity consistent wit h calcific tendinitis in the region of the teres minor or posterior infraspinatus tendon. Soft tissue s are otherwise unremarkable. IMPRESSION: 1. Mild left glenohumeral and acromioclavicular osteoarthritis. No acute osseous abnormality. 2. Left rotator cuff calcific tendinitis. Reviewed, dictated and finalized at location A. IMPRESSION: 1. Mild left glenohumeral and acromioclavicular osteoarthritis. No acute osseou s abnormality. 2. Left rotator cuff calcific tendinitis.
[2021-09-27 06:56] VITALS: BP 185/60; PULSE 65; RESP 16; TEMP 36.6; O2SAT 98
--- NOTE | 2021-09-27 07:56 | ED.UPPEXIN ---
HPI - Extremity Injury (Upper) General Chief Complaint: Extremity Injury, Upper Stated Complaint: lt shoulder pain after fall Time Seen by Provider: 09/27/21 06:58 Source: patient, RN notes reviewed and old records reviewed Mode of arrival: ambulatory Limitations: no limitations History of Present Illness HPI narrative: This is a 71 year old female who presents for evaluation of left shoulder pain s/p fall. Patient states she accidentally fell on Friday. She fell onto her left side with outstretched left arm. She states left hand jammed into her tire. She denies hitting her her head or LOC. She has been sore since her fall. She has been treating her left shoulder pain with lidocaine cream. She reports her left shoulder pain has worsened over past 2 days. She denies headache, neck pain or rib pain. She has been ambulatory without difficulty walking. Related Data Home Medications Medication Instructions Recorded Confirmed aspirin 81 mg tablet 81 mg PO DAILY 04/20/20 09/18/21 vitamin B complex (B 1 tablet PO DAILY 04/20/20 09/18/21 Complex-Vitamin B12 tablet) wheat dextrin 5 gram/7.4 gram oral 4 g PO DAILY 04/20/20 09/18/21 powder (Benefiber Healthy Shape) fluticasone propionate 50 1 spray intranasal DAILY 05/11/20 09/18/21 mcg/actuation nasal spray,suspension lactobacillus combination no.8 3 3,000 mmu cells PO DAILY 05/11/20 09/18/21 billion cell capsule (Adult Probiotic) melatonin 5 mg capsule 5 mg PO HS 05/11/20 09/18/21 clonidine HCl 0.1 mg tablet 0.2 mg PO BID 05/22/21 09/18/21 cholecalciferol (vitamin D3) 125 125 mcg PO DAILY 08/09/21 09/18/21 mcg (5,000 unit) capsule lidocaine 4 % topical patch 1 patch topical DAILY PRN 08/09/21 09/18/21 (Blue-Emu Lidocaine Patch) magnesium sulfate ea topical 08/09/21 09/18/21 gabapentin 100 mg capsule 1,500 mg PO .QD 08/20/21 09/18/21 Allergies Allergy/AdvReac Type Severity Reaction Status Date / Time adhesive Allergy Unknown RASH Verified 09/27/21 07:03 codeine Allergy Unknown Unknown Verified 09/27/21 07:03 Penicillins Allergy Unknown Hives / Verified 09/27/21 07:03 Red Face amlodipine [From [facility]] AdvReac Intermediate Swelling Verified 09/27/21 07:03 epinephrine AdvReac Unknown Palpitation Verified 09/27/21 07:03 s morphine AdvReac Hallucinati Verified 09/27/21 07:03 ng Review of Systems Review of Systems: All systems reviewed & are unremarkable except as noted in HPI and below Constitutional: Constitutional: Denies chills, Denies fatigue and Denies fever(s) Eyes: Eyes: Denies change in vision and Denies photophobia Cardiovascular: Cardiovascular: Denies chest pain and Denies rapid heart rate Respiratory: Respiratory: Denies chest congestion and Denies cough Gastrointestinal: Gastrointestinal: Denies abdominal pain and Denies bloating PMFSH Past Medical History Medical History Acid reflux Allergic reaction BMI 31.0-31.9,adult BMI 32.0-32.9,adult BMI 34.0-34.9,adult Deviated septum Diabetes Edema Elevated lipids Hypertension Irritable bowel PLMD (periodic limb movement disorder) Surgical History Surgical History H/O shoulder surgery H/O total hysterectomy with bilateral salpingo-oophorectomy (BSO) Open TYREL-BSO in September 2018 H/O tubal ligation History of 2 sections History of removal of skin mole Hx laparoscopic cholecystectomy Hx of tonsillectomy Family History Family History Daughter Carcinoma of colon Sibling Diabetes mellitus Mother Diabetes mellitus Family history of coronary artery disease Family history of hypercholesterolemia Hypertension Acute myocardial infarction Gallbladder disease Father Cerebrovascular accident Family history of coronary artery disease Family history of hypercholesterolemia
[2021-09-27 08:57] VITALS: BP 150/55; PULSE 51; RESP 18; O2SAT 95
== END 2021-09-27 08:59 | disposition home or self-care (01) ==
PROVIDERS: Emergency Provider General Practice; PCP Family Medicine
DX: M75.32 Calcific tendinitis of left shoulder (principal); M18.9 Osteoarthritis of first carpometacarpal joint, unspecified; M19.042 Primary osteoarthritis, left hand; M19.012 Primary osteoarthritis, left shoulder; E11.9 Type 2 diabetes mellitus without complications; I10 Essential (primary) hypertension; K58.9 Irritable bowel syndrome, unspecified; G47.61 Periodic limb movement disorder; Z90.710 Acquired absence of both cervix and uterus; Z79.82 Long term (current) use of aspirin; Z79.84 Long term (current) use of oral hypoglycemic drugs; W01.198A Fall on same level from slipping, tripping and stumbling with subsequent striking against other object, initial encounter
CPT/HCPCS: 73030; 73130; 99284

== ENCOUNTER 2021-10-03 22:38 | Emergency (ER) | payer MEDICARE, BC, SELFPAY ==
[2021-10-03 23:09] VITALS: BP 182/62; PULSE 70; RESP 16; TEMP 36.4; O2SAT 99
--- NOTE | 2021-10-04 00:52 | ED.GENADULT ---
HPI - General Adult General Chief complaint: Recheck/Abnormal Lab/Rx Stated complaint: high BP Time Seen by Provider: 10/04/21 00:37 History of Present Illness HPI narrative: Ms. Arciniega is a 71-year-old female who presented emergency room with complaints of hypertension. Patient states that her blood pressure has been elevated in the evenings when she checks it at home. Patient states she takes multiple medications throughout the day. Patient states that she will randomly check her blood pressure throughout the day and she has noticed a pattern that her blood pressure is higher in the evening. Patient denies any chest pain, shortness of breath, lightheadedness, dizziness, syncopal, or near syncopal episodes. Patient states she has been taking all medications without any difficulty. Patient states that she has followed up with her primary care provider as well as her salesperson [employer] regarding her blood pressure no recent changes have been made. Patient states she does have a follow-up appointment with her salesperson [employer] on 10/17/2021 but she did call his office today and was trying to get a follow-up sooner, but she was told there is no sooner follow-up. Patient states that she did have a mild headache earlier today when she checked her blood pressure. Patient states she does continue to have a mild headache of a 4 on a scale of 0-10. Patient states she was seen in the emergency room in March for elevated blood pressure, but at that time she had a headache that was a 10 out of 10. Patient states she also did have an episode of her hands feeling shaky, and patient checked her blood glucose level at that time it was 96. Patient states that blood glucose of 96 is low for her so she ate some peanut crackers and felt much improved. Related Data Home Medications Medication Instructions Recorded Confirmed aspirin 81 mg tablet 81 mg PO DAILY 04/20/20 09/18/21 vitamin B complex (B 1 tablet PO DAILY 04/20/20 09/18/21 Complex-Vitamin B12 tablet) wheat dextrin 5 gram/7.4 gram oral 4 g PO DAILY 04/20/20 09/18/21 powder (Benefiber Healthy Shape) fluticasone propionate 50 1 spray intranasal DAILY 05/11/20 09/18/21 mcg/actuation nasal spray,suspension lactobacillus combination no.8 3 3,000 mmu cells PO DAILY 05/11/20 09/18/21 billion cell capsule (Adult Probiotic) melatonin 5 mg capsule 5 mg PO HS 05/11/20 09/18/21 clonidine HCl 0.1 mg tablet 0.2 mg PO BID 05/22/21 09/18/21 cholecalciferol (vitamin D3) 125 125 mcg PO DAILY 08/09/21 09/18/21 mcg (5,000 unit) capsule lidocaine 4 % topical patch 1 patch topical DAILY PRN Pain 08/09/21 09/18/21 (Blue-Emu Lidocaine Patch) magnesium sulfate ea topical 08/09/21 09/18/21 gabapentin 100 mg capsule 1,500 mg PO .QD 08/20/21 09/18/21 Allergies Allergy/AdvReac Type Severity Reaction Status Date / Time adhesive Allergy Unknown RASH Verified 10/03/21 23:12 codeine Allergy Unknown Unknown Verified 10/03/21 23:12 Penicillins Allergy Unknown Hives / Verified 10/03/21 23:12 Red Face amlodipine [From [facility]] AdvReac Intermediate Swelling Verified 10/03/21 23:12 epinephrine AdvReac Unknown Palpitation Verified 10/03/21 23:12 s morphine AdvReac Hallucinati Verified 10/03/21 23:12 ng Review of Systems Review of Systems: 12 point review of systems was completed with patient all pertinent positive negative per HPI the remainder unremarkable [facility] Past Medical History Medical History Acid reflux Allergic reaction BMI 31.0-31.9,adult BMI 32.0-32.9,adult BMI 34.0-34.9,adult Deviated septum Diabetes Edema Elevated lipids Hypertension Irritable bowel PLMD (periodic limb movement disorder) Surgical History Surgical History H/O shoulder surgery H/O total hysterectomy with bilateral salpingo-oophorectomy (BSO) Open TYREL-BSO in September 2018 H/O tubal ligation History of 2 s
[2021-10-04] MEDS: KETOROLAC 30 MG/ML VIAL (*BKC) IM (01:05)
[2021-10-04 01:06] VITALS: BP 144/60; PULSE 57; RESP 16; O2SAT 98
[2021-10-04 02:12] VITALS: BP 141/58; PULSE 58; RESP 18; O2SAT 98
== END 2021-10-04 02:13 | disposition home or self-care (01) ==
PROVIDERS: Emergency Provider Nurse Practitioner Adult Health; PCP Family Medicine
DX: I10 Essential (primary) hypertension (principal)
CPT/HCPCS: 96372; 99283; J1885

== ENCOUNTER 2021-11-21 10:22 | Outpatient (CLI) | payer MEDICARE, BC, SELFPAY ==
--- NOTE | ~2021-11-21 | MM_ITS ---
EXAMINATION: MM screening [facility] BI w henry HISTORY: Screening mammogram TECHNIQUE: Craniocaudal and mediolateral oblique 3-D tomosynthesis images were obtained and synthetic 2-D images were generated. CAD analysis was submitted and interpreted. COMPARISON: 10/23/2020, 09/29/2020, 09/28/2019 BREAST PARENCHYMAL COMPOSITION: There are scattered areas of fibroglandular density. FINDINGS: There is no suspicious mass, calcification, or architectural distortion to suggest malignan cy in either breast. There has been no suspicious interval change. IMPRESSION: 1. No mammographic evidence of malignancy. 2. Recommend routine screening mammography in one year. BI-RADS Category 1: Negative Reviewed, dictated and finalized at location A.
== END 2021-11-21 10:23 | disposition home or self-care (01) ==
PROVIDERS: PCP Family Medicine; Visit Provider Obstetrics & Gynecology
DX: Z12.31 Encounter for screening mammogram for malignant neoplasm of breast (principal)
CPT/HCPCS: 77063; 77067

== ENCOUNTER 2021-12-18 00:20 | Day surgery (SDC) | payer MEDICARE, BC, SELFPAY ==
[2021-12-04 15:27] VITALS: BMI 31.8
[2021-12-18 07:17] VITALS: BP 145/60; PULSE 56; RESP 16; TEMP 36.1; O2SAT 98; BMI 31.5
--- NOTE | 2021-12-18 07:17 | WPDANESEPPF ---
Anes - Initial Pre Proc Eval Procedure: Operation Date: 12/18/21 08:45 Proposed Procedures p Esophagogastroduodenoscopy - Adan Johns MD Date/Time: 12/18/21 07:17 Surgeon: Adan Johns MD Pre Op Diagnosis: GERD, dysphagia Patient Data Age: 71 Gender: F Height: 1.63 m Weight: 84 kg Allergies Allergy/AdvReac Type Severity Reaction Status Date / Time adhesive Allergy Unknown RASH Verified 12/18/21 07:15 codeine Allergy Unknown Unknown Verified 12/18/21 07:15 Penicillins Allergy Unknown Hives / Verified 12/18/21 07:15 Red Face amlodipine [From [facility]] AdvReac Intermediate Swelling Verified 12/18/21 07:15 epinephrine AdvReac Unknown Palpitation Verified 12/18/21 07:15 s morphine AdvReac Hallucinati Verified 12/18/21 07:15 ng Home Medications Medication Instructions Recorded Confirmed Type vitamin B complex (B 1 tablet PO DAILY 04/20/20 12/18/21 History Complex-Vitamin B12 tablet) fluticasone propionate 50 1 spray intranasal DAILY 05/11/20 12/18/21 History mcg/actuation nasal spray,suspension lactobacillus combination no.8 3 3,000 mmu cells PO DAILY 05/11/20 12/18/21 History billion cell capsule (Adult Probiotic) melatonin 5 mg capsule 5 mg PO HS 05/11/20 12/18/21 History clonidine HCl 0.1 mg tablet 0.1 mg PO BID 05/22/21 12/18/21 History metformin 500 mg tablet,extended 2,000 mg PO DAILY #360 tabs 07/15/21 12/18/21 Rx release 24 hr pravastatin 40 mg tablet See Rx Instructions .Route 07/15/21 12/18/21 Rx .COMPLEX #90 tabs cholecalciferol (vitamin D3) 125 125 mcg PO DAILY 08/09/21 12/18/21 History mcg (5,000 unit) capsule magnesium sulfate 1 ea topical HS PRN Restless Leg(S) 08/09/21 12/18/21 History dapagliflozin 5 mg tablet (Farxiga) 5 mg PO DAILY #90 tabs 08/20/21 12/18/21 Rx gabapentin 100 mg capsule 1,500 mg PO .QD 08/20/21 12/18/21 History alpha lipoic acid 600 mg capsule 600 mg PO DAILY 10/08/21 12/18/21 History amlodipine 5 mg tablet See Rx Instructions .Route 10/14/21 12/18/21 Rx .COMPLEX #30 tabs valsartan 320 mg tablet See Rx Instructions .Route 10/19/21 12/18/21 Rx .COMPLEX #90 tabs ferrous sulfate 325 mg (65 mg 325 mg PO BID #60 tabs 10/29/21 12/18/21 Rx iron) tablet omeprazole 20 mg capsule,delayed 20 mg PO BID #180 caps 11/21/21 12/18/21 Rx release hydrochlorothiazide 25 mg tablet 25 mg PO DAILY 12/04/21 12/18/21 History hydralazine 25 mg tablet See Rx Instructions .Route 12/08/21 12/18/21 Rx .COMPLEX #270 tabs buspirone 5 mg tablet See Rx Instructions .Route 12/10/21 12/18/21 Rx .COMPLEX #60 tabs temazepam 30 mg capsule 30 mg PO QHS PRN sleep #30 caps 12/11/21 12/18/21 Rx Patient hx anesthesia problems: none Family hx anesthesia problems: none Results Review: All pre-operative results and documents have been reviewed as part of the pre-operative evaluation. [facility] Past Medical History Medical History Acid reflux Allergic reaction BMI 31.0-31.9,adult BMI 32.0-32.9,adult BMI 34.0-34.9,adult Deviated septum Diabetes Edema Elevated lipids Hypertension Irritable bowel PLMD (periodic limb movement disorder) Surgical History Surgical History H/O shoulder surgery H/O total hysterectomy with bilateral salpingo-oophorectomy (BSO) Open TYREL-BSO in September 2018 H/O tubal ligation History of 2 sections History of removal of skin mole Hx laparoscopic cholecystectomy Hx of tonsillectomy Family History Family History Daughter Carcinoma of colon Sibling Diabetes mellitus Mother Diabetes mellitus Family history of coronary artery disease Family history of hypercholesterolemia Hypertension Acute myocardial infarction Gallbladder disease Father Cerebrovascular accident Family history of coronary artery disease Family history
[2021-12-18] MEDS: LACTATED RINGERS 1,000 ML 150 ML IV CONT (07:33)
[2021-12-18 07:34] LABS: Glucose Point of Care 143 mg/dl (65-105)
--- NOTE | 2021-12-18 08:02 | PM.IMHP ---
H&P: HPI History of Present Illness Date/Time: 12/18/21 08:02 Chief Complaint: Dysphagia Narrative: this is a 71-year-old white female patient presents for EGD. Patient complains of food catching in the substernal portion of the area on swallowing. She does complain of significant epigastric pain. Patient has been maintained on omeprazole 20mg p.o. daily. But because of ongoing epigastric discomfort dose was increased to40mg p.o. daily 2 weeks ago. Patient presents today for EGD because of difficulty swallowing and ongoing epigastric discomfort. Review of Systems Review of Systems: Review of systems noncontributory. [facility] Past Medical History Medical History Acid reflux Allergic reaction BMI 31.0-31.9,adult BMI 32.0-32.9,adult BMI 34.0-34.9,adult Deviated septum Diabetes Edema Elevated lipids Hypertension Irritable bowel PLMD (periodic limb movement disorder) Surgical History Surgical History H/O shoulder surgery H/O total hysterectomy with bilateral salpingo-oophorectomy (BSO) Open TYREL-BSO in September 2018 H/O tubal ligation History of 2 sections History of removal of skin mole Hx laparoscopic cholecystectomy Hx of tonsillectomy Family History Family History Daughter Carcinoma of colon Sibling Diabetes mellitus Mother Diabetes mellitus Family history of coronary artery disease Family history of hypercholesterolemia Hypertension Acute myocardial infarction Gallbladder disease Father Cerebrovascular accident Family history of coronary artery disease Family history of hypercholesterolemia Hypertension Acute myocardial infarction Grandparent Diabetes mellitus Sibling Diabetes mellitus Family history of hypercholesterolemia Hypertension Other Family history of malignant neoplasm of breast Social History Social History Smoking status: Never smoker Second hand tobacco smoke exposure: Yes Alcohol intake: never Substance use: never Substance use type: does not use Living arrangements: alone 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 Gender identity (if verbalized by the patient): Female Sexual Orientation (if Verbalized by the Patient): Straight or Heterosexual Spiritual care concerns: No Agree to blood products: Yes Meds Home Medications and Allergies Home Medications Medication Instructions Recorded Confirmed Type vitamin B complex (B 1 tablet PO DAILY 04/20/20 12/18/21 History Complex-Vitamin B12 tablet) fluticasone propionate 50 1 spray intranasal DAILY 05/11/20 12/18/21 History mcg/actuation nasal spray,suspension lactobacillus combination no.8 3 3,000 mmu cells PO DAILY 05/11/20 12/18/21 History billion cell capsule (Adult Probiotic) melatonin 5 mg capsule 5 mg PO HS 05/11/20 12/18/21 History clonidine HCl 0.1 mg tablet 0.1 mg PO BID 05/22/21 12/18/21 History metformin 500 mg tablet,extended 2,000 mg PO DAILY #360 tabs 07/15/21 12/18/21 Rx release 24 hr pravastatin 40 mg tablet See Rx Instructions .Route 07/15/21 12/18/21 Rx .COMPLEX #90 tabs cholecalciferol (vitamin D3) 125 125 mcg PO DAILY 08/09/21 12/18/21 History mcg (5,000 unit) capsule magnesium sulfate 1 ea topical HS PRN Restless Leg(S) 08/09/21 12/18/21 History dapagliflozin 5 mg tablet (Farxiga) 5 mg PO DAILY #90 tabs 08/20/21 12/18/21 Rx gabapentin 100 mg capsule 1,500 mg PO .QD 08/20/21 12/18/21 History alpha lipoic acid 600 mg capsule 600 mg PO DAILY 10/08/21 12/18/21 History amlodipine 5 mg tablet See Rx Instructions .Route 10/14/21 12/18/21 Rx .COMPLEX #30 tabs valsartan 320 mg tablet See Rx Instructions .Route 10/19/21 12/18/21 Rx .COMPLEX #90 tabs ferrous sulfate 325 mg (65 mg 325 mg PO BID
[2021-12-18 08:48] VITALS: BP 153/62; PULSE 54; RESP 18; O2SAT 100
[2021-12-18 08:58] VITALS: BP 163/57; PULSE 52; RESP 18; O2SAT 100
[2021-12-18 09:08] VITALS: BP 172/62; PULSE 52; RESP 20; O2SAT 100
== END 2021-12-18 09:22 | disposition home or self-care (01) ==
PROVIDERS: PCP Family Medicine; Visit Provider Internal Medicine Gastroenterology
PROC: 0DJ08ZZ Inspection of Upper Intestinal Tract, Via Natural or Artificial Opening Endoscopic (ICD-10-PCS; CPT 43235; principal; 2021-12-18 08:45)
DX: K21.9 Gastro-esophageal reflux disease without esophagitis (principal); R13.10 Dysphagia, unspecified; R10.13 Epigastric pain; E11.9 Type 2 diabetes mellitus without complications; I10 Essential (primary) hypertension; G47.61 Periodic limb movement disorder; Z90.49 Acquired absence of other specified parts of digestive tract; Z79.84 Long term (current) use of oral hypoglycemic drugs; R60.0 Localized edema; E66.9 Obesity, unspecified; Z68.31 Body mass index [BMI] 31.0-31.9, adult
CPT/HCPCS: 43450; 43235; 82948; J7120

== ENCOUNTER 2022-04-25 08:05 | Outpatient (CLI) | payer MEDICARE, BC, SELFPAY ==
--- NOTE | ~2022-04-25 | XR_ITS ---
EXAMINATION: XR barium swallow modified DATE: 04/25/2022 08:57 INDICATION: Other dysphagia. TECHNIQUE: The patient was given barium-containing material of multiple consistencies to swallow by t waldo speech pathologist while I performed fluoroscopy. Fluoroscopy exposure time was 1.0 minutes. The n umber of fluoroscopy images saved to the PACS was 1. Dose-area product was 0.696 Gy-cm^2. FINDINGS: There is reduced laryngeal elevation. There is laryngeal penetration with thin liquids with and witho ut head flexion. IMPRESSION: 1. Laryngeal penetration with thin liquids. 2. Please refer to the speech therapy report for recommendations. Reviewed, dictated and finalized at location A. FOLIO ARCHITECT
--- NOTE | ~2022-04-25 | XR_ITS ---
EXAMINATION: XR UGIAC w barium swallow DATE: 04/25/2022 09:17 INDICATION: Dysphagia. TECHNIQUE: The patient drank thick barium, gas-producing crystals, and thin barium. Fluoroscopy of th e esophagus, stomach, and proximal small bowel was performed. Fluoroscopy exposure time was 0.6 minut es. The total number of images was 227. Total dose-area product was 1.553 Gy-cm^2. COMPARISON: None. FINDINGS: There is no mass or stricture of the esophagus. Esophageal motility is normal. There is no hiatal hernia. There was gastroesophageal reflux with provocative maneuvers. The stomach and proximal small bowel show normal folding patterns. IMPRESSION: 1. Gastroesophageal reflux with provocative maneuvers. Reviewed, dictated and finalized at location A. MAKING SUPERVISOR
--- NOTE | 2022-04-25 10:37 | REHSTMBS ---
Assessment and note entered by Matilde Dubon, GERMINATION TESTING MANAGER Modified Barium Swallow Evaluation Feeding Type Recommended Oral Food Consistency Regular, Level 7 Liquid Consistency Mildly Thick (2) Treatment Recommendations Effortful Swallow,Laryngeal Elevation Exerc, Curtis Maneuver,Supraglottic Swallow ST Clinical Summary MODIFIED BARIUM SWALLOW STUDY (MBSS) This patient was seen for a Modified Barium Swallow study at the request of her physician due to patient's complaints of coughing when drinking and becoming choked on foods when eating. Patient is also scheduled for another barium procedure after this evaluation. She reports she is also scheduled for a colonoscopy. Patient reports that she inconsistently coughs on water, and that solid foods such as rice can build up, expand, and then cause her to choke. Patient stated that she knows she eat(s) too fast and that she is trying to slow down and chew more thoroughly. Patient was viewed in the upright position to the level of C5/C6. Patient exhibited consistent penetration onto the under side of the epiglottis and very top of the upper laryngeal vestibule on even small amounts of thin liquid contrast medium per spoon (cup not attempted secondary to penetration). She was unable to prevent penetration using head flexion but when liquid was thickened to nectar/mildly thick, she was well able to prevent penetration. Results indicate this patient may stay on a Regular Diet, however patient should thicken liquids to Mildly (nectar) Thick, Level 2. She was presented with two sample packs of [place]/ Mildly Thick Thickener to try at home. Patient wondered if Metamucil powder could be used to thicken her water and it is suggested that she experiment with the actual thickener to find the exact consistency which prevents coughing on liquids and then imitate this consistency with the Metamucil. It is recommended that patient begin Speech Therapy 2x weekly for four weeks for strengthening exercises and safe swallowing techniques.
== END 2022-04-25 13:51 | disposition home or self-care (01) ==
PROVIDERS: PCP Family Medicine; Visit Provider Nurse Practitioner Family
DX: R13.19 Other dysphagia (principal); K21.9 Gastro-esophageal reflux disease without esophagitis; T17.320A Food in larynx causing asphyxiation, initial encounter; X58.XXXA Exposure to other specified factors, initial encounter
CPT/HCPCS: 74246; 92611

== ENCOUNTER 2022-05-09 14:30 | Outpatient (RCR) | payer MEDICARE, BC, SELFPAY ==
--- NOTE | 2022-05-06 15:56 | STOPEVAL1 ---
Assessment and note entered by Matilde Dubon, [employer] Evaluation Information Assessment Status Evaluation Diagnosis Dysphagia Onset 2-4 years Subjective Information Patient underwent a Modified Barium Swallow study 04/25/22 and she noted that she was told that often the liquids hit the top of her airway and she is reports frequent coughing on thin liquids. She admits to choking, on solid foods also, and states that she knows she eats too fast. She states that this is a life-long habit due to short lunch hours. Patient states she has gotten choked on rice and that she has hardly been able to breath and get air down when she has gotten choked. Patient reports she has noticed the coughing/choking in the last two to three years, worsening over time. Patient has been diagnosed with gastroesophageal reflux disease (GERD) and has been on Omeprazole for the last several years. Anecdotally, reported one time was unable to have this medicine refilled and stated she felt her throat was like a ball of fire. She stated that her physician's office doubled the Omeprazole and that that has been helpful. After the Modified Barium Swallow study, she was presented with [place] Thickener to use and tried it one time; she stated it was too thick and she has refused to use it since then. When patient entered room, she stated, I'll be brutally honest, I don't think I need to be here. After therapist read the initial report (also administered by this therapist), results, and recommendations to the patient, and then after instruction for safe swallowing techniques and two swallowing exercises, patient voiced understanding and agreed to return for additional sessions. Reported Pain Level Pain Score 0: Self Report Assessment ST Clinical Summary BEDSIDE SWALLOW EVALUATION This patient was seen for a Bedside Swallow Evaluation at the request of her physician. Patient had a Modified Barium Swallow study on . Results indicated that the patient had consistent coating of the upper laryngeal vestibule and epiglottis on small amount of thin liquids and head flexion did no
--- NOTE | 2022-05-21 14:53 | PCSTNOTE ---
Therapist spoke with patient who voiced good understanding of home exercise program and safe swallowing techniques and feels she does not require any additional therapy sessions. Patient is being discharged at this time.
--- NOTE | 2022-05-21 14:58 | STOPDC ---
Assessment and note entered by Matilde Dubon [employer] Evaluation Information Assessment Status Discharge - Pt Not Presen Assessment ST Clinical Summary Patient was seen for one evaluation and one treatment session for safe swallowing techniques and swallowing strengthening exercises. Patient demonstrated and voiced good understanding of safe swallowing techniques and exercises. She requested no additional therapy after the second visit but agreed to a telephone conversation to ensure progress. At that time, she voiced she felt she was completing the home program well and no additional treatment was required. She is discharged with goals achieved. Plan of Care ST Services Indicated No
== END 2022-05-22 11:26 | disposition home or self-care (01) ==
LOC: ANHST 14:30
PROVIDERS: PCP Family Medicine; Visit Provider Nurse Practitioner Family
DX: R13.19 Other dysphagia (principal); R93.89 Abnormal findings on diagnostic imaging of other specified body structures
CPT/HCPCS: 92526; 92610

== ENCOUNTER 2022-05-28 00:59 | Day surgery (SDC) | payer MEDICARE, BC, SELFPAY ==
[2022-05-13 14:51] VITALS: BMI 31.0
[2022-05-28 06:55] VITALS: BP 133/43; PULSE 65; RESP 18; TEMP 36.6; O2SAT 97
[2022-05-28] MEDS: LACTATED RINGERS 1,000 ML 150 ML IV CONT (07:06)
[2022-05-28 07:10] LABS: Glucose Point of Care 136 mg/dl (65-105)
--- NOTE | 2022-05-28 07:27 | WPDANESEPPF ---
Anes - Initial Pre Proc Eval Procedure: Operation Date: 05/28/22 08:00 Proposed Procedures p Colonoscopy - Adan Johns MD Date/Time: 05/28/22 07:27 Surgeon: Adan Johns MD Pre Op Diagnosis: diarrhea Patient Data Age: 72 Gender: F Height: 1.63 m Weight: 80 kg Last Vital Signs Temp 97.9 F 05/28/22 06:55 Pulse 65 05/28/22 06:55 Resp 18 05/28/22 06:55 BP 133/43 L 05/28/22 06:55 Pulse Ox 97 05/28/22 06:55 O2 Del Method Room Air 05/28/22 06:55 Allergies Allergy/AdvReac Type Severity Reaction Status Date / Time adhesive Allergy Unknown RASH Verified 05/28/22 06:50 codeine Allergy Unknown Unknown Verified 05/28/22 06:50 Penicillins Allergy Unknown Hives / Verified 05/28/22 06:50 Red Face epinephrine AdvReac Unknown Palpitation Verified 05/28/22 06:50 s morphine AdvReac Hallucinati Verified 05/28/22 06:50 ng Home Medications Medication Instructions Recorded Confirmed Type fluticasone propionate 50 1 spray intranasal DAILY 05/11/20 05/23/22 History mcg/actuation nasal spray,suspension melatonin 5 mg capsule 5 mg PO HS 05/11/20 05/23/22 History cholecalciferol (vitamin D3) 125 125 mcg PO DAILY 08/09/21 05/23/22 History mcg (5,000 unit) capsule gabapentin 100 mg capsule 1,500 mg PO .QD 08/20/21 05/23/22 History alpha lipoic acid 600 mg capsule 600 mg PO DAILY 10/08/21 05/23/22 History amlodipine 5 mg tablet See Rx Instructions .Route 10/14/21 05/23/22 Rx .COMPLEX #30 tabs valsartan 320 mg tablet See Rx Instructions .Route 12/18/21 05/23/22 Rx .COMPLEX #90 tabs dapagliflozin 5 mg tablet (Farxiga) 5 mg PO DAILY #90 tabs 03/03/22 05/23/22 Rx omeprazole 40 mg capsule,delayed See Rx Instructions .Route 03/15/22 05/23/22 Rx release .COMPLEX #60 caps metformin 500 mg tablet,extended 2,000 mg PO DAILY #360 tabs 03/17/22 05/23/22 Rx release 24 hr pravastatin 40 mg tablet See Rx Instructions .Route 03/17/22 05/23/22 Rx .COMPLEX #90 tabs dicyclomine 20 mg tablet 20 mg PO QID PRN abdominal 04/18/22 05/23/22 Rx discomfort #180 tabs hydralazine 25 mg tablet 100 mg .Route TID 04/18/22 05/23/22 History spironolactone 25 mg tablet 25 mg PO DAILY 04/18/22 05/23/22 History temazepam 30 mg capsule 30 mg PO QHS PRN sleep #30 caps 05/20/22 05/28/22 Rx buspirone 5 mg tablet See Rx Instructions .Route 05/26/22 05/28/22 Rx .COMPLEX #60 tabs Laboratory Tests 05/28/22 07:06 POC Capillary Glucose 136 mg/dl H mg/dl (65-105) Patient hx anesthesia problems: none Family hx anesthesia problems: none Results Review: All pre-operative results and documents have been reviewed as part of the pre-operative evaluation. [facility] Past Medical History Medical History Acid reflux Allergic reaction BMI 31.0-31.9,adult BMI 32.0-32.9,adult BMI 34.0-34.9,adult Deviated septum Diabetes Diarrhea Edema Elevated lipids Hypertension Irritable bowel PLMD (periodic limb movement disorder) Surgical History Surgical History H/O shoulder surgery H/O total hysterectomy with bilateral salpingo-oophorectomy (BSO) Open TYREL-BSO in September 2018 H/O tubal ligation History of 2 sections History of removal of skin mole Hx laparoscopic cholecystectomy Hx of tonsillectomy Family History Family History Daughter Carcinoma of colon Sibling Diabetes mellitus Mother Diabetes mellitus Family history of coronary artery disease Family history of hypercholesterolemia Hypertension Acute myocardial infarction Gallbladder disease Father Cerebrovascular accident Family history of coronary artery disease Family history of hypercholesterolemia Hypertension Acute myocardial infarction Grandparent Diabetes mellitus Sibling Diabetes mellitus Family history of hy
--- NOTE | 2022-05-28 07:56 | PM.HPGS ---
History of Present Illness History of Present Illness Consent: Risks, benefits, and alternatives have been discussed and questions answered. Patient agrees to proceed with procedure. Chief complaint: diarrhea Narrative: Heidy Arciniega is a 72 year old female Presents for colonoscopy. Patient has a history of irritable bowel syndrome. She states she has diarrhea about every 3rd day. Previously was advised to try FiberCon. She however has decided to try to increase fiber in her diet and minimize pills. she presents today for colonoscopy to exclude organic disease contributing to her diarrhea patient denies any bleeding. She has had no weight loss. Family history is noncontributory. Review of Systems Review of Systems: Review of systems noncontributory. [facility] Past Medical History Medical History Acid reflux Allergic reaction BMI 31.0-31.9,adult BMI 32.0-32.9,adult BMI 34.0-34.9,adult Deviated septum Diabetes Diarrhea Edema Elevated lipids Hypertension Irritable bowel PLMD (periodic limb movement disorder) Surgical History Surgical History H/O shoulder surgery H/O total hysterectomy with bilateral salpingo-oophorectomy (BSO) Open TYREL-BSO in September 2018 H/O tubal ligation History of 2 sections History of removal of skin mole Hx laparoscopic cholecystectomy Hx of tonsillectomy Family History Family History Daughter Carcinoma of colon Sibling Diabetes mellitus Mother Diabetes mellitus Family history of coronary artery disease Family history of hypercholesterolemia Hypertension Acute myocardial infarction Gallbladder disease Father Cerebrovascular accident Family history of coronary artery disease Family history of hypercholesterolemia Hypertension Acute myocardial infarction Grandparent Diabetes mellitus Sibling Diabetes mellitus Family history of hypercholesterolemia Hypertension Other Family history of malignant neoplasm of breast Social History Social History Smoking status: Never smoker Second hand tobacco smoke exposure: Yes Alcohol intake: never Substance use: never Substance use type: does not use Living arrangements: alone Occupation/Education: retired 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 Gender identity (if verbalized by the patient): Female Sexual Orientation (if Verbalized by the Patient): Straight or Heterosexual Spiritual care concerns: No Agree to blood products: Yes Meds Home Medications and Allergies Home Medications Medication Instructions Recorded Confirmed Type fluticasone propionate 50 1 spray intranasal DAILY 05/11/20 05/23/22 History mcg/actuation nasal spray,suspension melatonin 5 mg capsule 5 mg PO HS 05/11/20 05/23/22 History cholecalciferol (vitamin D3) 125 125 mcg PO DAILY 08/09/21 05/23/22 History mcg (5,000 unit) capsule gabapentin 100 mg capsule 1,500 mg PO .QD 08/20/21 05/23/22 History alpha lipoic acid 600 mg capsule 600 mg PO DAILY 10/08/21 05/23/22 History amlodipine 5 mg tablet See Rx Instructions .Route 10/14/21 05/23/22 Rx .COMPLEX #30 tabs valsartan 320 mg tablet See Rx Instructions .Route 12/18/21 05/23/22 Rx .COMPLEX #90 tabs dapagliflozin 5 mg tablet (Farxiga) 5 mg PO DAILY #90 tabs 03/03/22 05/23/22 Rx omeprazole 40 mg capsule,delayed See Rx Instructions .Route 03/15/22 05/23/22 Rx release .COMPLEX #60 caps metformin 500 mg tablet,extended 2,000 mg PO DAILY #360 tabs 03/17/22 05/23/22 Rx release 24 hr pravastatin 40 mg tablet See Rx Instructions .Route 03/17/22 05/23/22 Rx .COMPLEX #90 tabs dicyclomine 20 mg tablet 20 mg PO QID PRN abdominal 04/18/22 05/23/22 Rx discomfort #180 tabs hydralazine 25 mg tablet 100
[2022-05-28] MEDS: SIMETHICONE ORAL SUSPENSION 20 MG/0.3 ML 30 ML BOTTLE 0.6 ML IRRIGATION (08:10)
[2022-05-28 08:23] VITALS: BP 106/47; PULSE 62; RESP 19; O2SAT 97
[2022-05-28 08:33] VITALS: BP 107/78; PULSE 69; RESP 20; O2SAT 97
[2022-05-28 08:43] VITALS: BP 133/54; PULSE 66; RESP 20; O2SAT 99
== END 2022-05-28 09:04 | disposition home or self-care (01) ==
PROVIDERS: PCP Family Medicine; Visit Provider Internal Medicine Gastroenterology
PROC: 0DJD8ZZ Inspection of Lower Intestinal Tract, Via Natural or Artificial Opening Endoscopic (ICD-10-PCS; CPT 45378; principal; 2022-05-28 08:00)
DX: K58.0 Irritable bowel syndrome with diarrhea (principal); K57.30 Diverticulosis of large intestine without perforation or abscess without bleeding; E11.9 Type 2 diabetes mellitus without complications; I10 Essential (primary) hypertension; K21.9 Gastro-esophageal reflux disease without esophagitis; E78.5 Hyperlipidemia, unspecified; G47.61 Periodic limb movement disorder; E66.9 Obesity, unspecified; Z68.30 Body mass index [BMI] 30.0-30.9, adult; Z79.84 Long term (current) use of oral hypoglycemic drugs
CPT/HCPCS: 45380; 82948; 88305; J2704; J7120

== ENCOUNTER 2022-06-20 09:39 | Outpatient (CLI) | payer MEDICARE, BC, SELFPAY ==
[2022-06-20 16:50] LABS: Anion Gap 9 mmol/L (8-16); Blood Urea Nitrogen 22 mg/dL (7-17); Calcium 9.2 mg/dL (8.4-10.2); Carbon Dioxide 30 mmol/L (22-30); Chloride 99 mmol/L (98-107); Estimated Glomerular Filt Rate > 60; Glucose 119 mg/dL (65-110); HDL Direct 35 mg/dL; Potassium 4.2 mmol/L (3.4-5.0); Sodium 138 mmol/L (137-145)
[2022-06-20 17:01] LABS: LDL Cholesterol Direct 94 mg/dL
[2022-06-20 17:18] LABS: Creatinine Urine 59.2 mg/dL
[2022-06-20 17:30] LABS: MALB Creatinine Ratio < 10.1 mg/g (0-30); Microalbumin Urine Random < 6.0 mg/L (0-16.7)
[2022-06-20 18:23] LABS: Vitamin D 25 Hydroxy 82.4 ng/mL
== END 2022-06-20 09:40 | disposition home or self-care (01) ==
LOC: ANHWCLAB 09:43
PROVIDERS: PCP Family Medicine; Visit Provider Internal Medicine Endocrinology, Diabetes & Metabolism
DX: E11.40 Type 2 diabetes mellitus with diabetic neuropathy, unspecified (principal); E78.5 Hyperlipidemia, unspecified; R79.89 Other specified abnormal findings of blood chemistry; E55.9 Vitamin D deficiency, unspecified
CPT/HCPCS: 36415; 80048; 82043; 82306; 82607; 83718; 83721; 84443

== ENCOUNTER 2022-06-25 16:08 | Outpatient (CLI) | payer MEDICARE, BC, SELFPAY ==
--- NOTE | ~2022-06-25 | US_ITS ---
Thyroid ultrasound. Clinical History: Nontoxic goiter COMPARISON: 01/06/2017 Findings: Real-time sonography of the thyroid gland was performed. The right lobe measures 5.2 x 1.9 x 1.6 cm. The left lobe measures 3.9 x 1.6 x 1.5 cm. The isthmus is 8 mm in AP diameter. There is a 1.3 x 0.7 cm hypoechoic solid, wider than tall nodule at the right upper pole. There is a 0.9 cm heterogeneous iso to hypoechoic nodule at the posterior right mid pole. There is a similar-jalil earing additional 0.9 cm nodule more anteriorly at the right midpole. There is a 0.8 cm isoechoic, mildly heterogeneous nodule at the anterior aspect of the left upper ward e. There is a probable coarsely calcified 0.6 cm nodule at the left lower pole. There is a probable 1 .2 cm hyperechoic nodule at the left upper pole. Impression: Bilateral thyroid nodules, as detailed above, similar in distribution to prior exam. Overall, there i s probably no significant interval change given differences in imaging technique and the relatively l blessing time interval since prior exam. Reviewed, dictated and finalized at location . Impression: Bilateral thyroid nodules, as detailed above, similar in distribution to prior exam. Overall, there is probably no significant interval change given differenc es in imaging technique and the relatively long time interval since prior exam.
== END 2022-06-25 16:09 | disposition home or self-care (01) ==
LOC: ANHIMG 16:10
PROVIDERS: PCP Family Medicine; Visit Provider Internal Medicine Endocrinology, Diabetes & Metabolism
DX: E04.2 Nontoxic multinodular goiter (principal)
CPT/HCPCS: 76536

== ENCOUNTER → 2022-08-13 12:57 | Outpatient (CLI) | payer MEDICARE, BC, SELFPAY ==
--- NOTE | ~2022-08-13 | XR_ITS ---
EXAMINATION: XR lumbar spine 2-3V DATE: 08/13/2022 13:19 INDICATION: Low back pain, unspecified. TECHNIQUE: 3 views of lumbar spine were obtained. COMPARISON: CT abdomen and pelvis 07/24/2020 FINDINGS: There is 3 degrees levocurvature of thoracolumbar spine. There is mild chronic anterior wed ging of L1 and L2 vertebral bodies. There is moderately decreased disc height at L1-L2, severely decr eased disc height at L2-L3 and L4-L5, and moderately decreased disc height at L5-S1 with endplate rem odeling. There is multilevel facet joint osteoarthritis, severe in the lower lumbar spine. Surgical c lips in the right upper quadrant are likely from cholecystectomy. IMPRESSION: 1. Severe lumbar spondylosis. Reviewed, dictated and finalized at location A.
--- NOTE | ~2022-08-13 | XR_ITS ---
EXAMINATION: XR hip BI 2V w AP pelvis DATE: 08/13/2022 13:19 INDICATION: Low back pain, unspecified. TECHNIQUE: An anteroposterior pelvis and 2 views of each hip were obtained. COMPARISON: Pelvis and hip radiographs 12/12/2009 FINDINGS: Bone alignment is normal. No fracture. There is severe lumbar spondylosis. There is mild os teoarthritis of the hips. IMPRESSION: 1. Mild osteoarthritis of the hips. Reviewed, dictated and finalized at location A.
== END ==
PROVIDERS: PCP Family Medicine; Visit Provider Physician Assistant Medical
DX: M54.50 Low back pain, unspecified (principal); M79.606 Pain in leg, unspecified; M25.551 Pain in right hip; M25.552 Pain in left hip; G89.29 Other chronic pain; M47.816 Spondylosis without myelopathy or radiculopathy, lumbar region; M16.12 Unilateral primary osteoarthritis, left hip; M16.11 Unilateral primary osteoarthritis, right hip
CPT/HCPCS: 72100; 73521

== ENCOUNTER 2022-10-03 12:30 | Outpatient (RCR) | payer MEDICARE, BC, SELFPAY ==
--- NOTE | 2022-09-03 09:09 | PTOPEVAL1 ---
Assessment and note entered by Jahaira Joseph, PT Evaluation Information Assessment Status Evaluation Diagnosis low back pain, R hip and L hip pain Onset 6 months Subjective Information Heidy reports: have a long history of back pain, gradual worsening of pain; no trauma or injury to back; had xrays of back- said there was severe arthritis in back and hips; have not had therapy before; live alone, can do everything, but cleaning house is not very good--just do the basics; sweeping and mopping make back hurt; have a membership to the [employer]-- been trying to walk the track there, but pain increases with walking; walking and balance are a little off due to pain and dizziness; have felt like L knee buckling a few times when walking; Reported Pain Level Pain Score Self Report Additional Pain Score Comments pain range in the past week: 3-8 /10; R and L hip into L leg to anterior marx at worst, always to L knee increases at the end of the day; walking, cleaning house decreases with change positions, meds, heat pad- help little; new script of meloxicam, tylenol arthritis- maybe help a little Oswestry self assessment functional score 56%: tolerances: with sleeping 2 x awaken from back pain, change positions and switch all night Assessment PT Clinical Summary Heidy has the diagnosis of low back, R and L hip pain, radicular into L LE to anterior mid marx. She reports chronic pain in her back and has not ever had PT services. Recent xray report states severe DDD and R and L hip OA. Oswestry self assessment score of 56% limitation in activity. She reports decreased walking, standing, sleeping and activity tolerances. With the evaluation, her pain is increased with standing flexion, rotation R of trunk and supine R and L hip flexion and IR motions; poor standing position of her trunk and hips; decreased strength of trunk and hips; 2 minute walking tolerance of 375'. Multiple times during the evaluation, she reported if do anymore it will hurt, do not want to make pain worse. Skilled PT services a
--- NOTE | 2022-09-03 09:09 | OPREHPOC ---
Outpatient Therapy Plan of Care This is a Multidisciplinary Plan of Care that may contain components documented by all disciplines (PT, OT, and ST.) PT Problem 1 PT Problem #1 Knowledge Deficit PT Goal 1 Goal 1*indep with HEP 2* demonstrate good body mechanics with simulated home tasks 3* able to state 3 methods to decrease her pain PT Problem 2 PT Problem #2 Pain PT Goal 1 Goal 1* pain rating of 5/10 at worst 2* report with sleeping awaken 1x/night due to back pain 3* Oswestry self assessment functional score of 46% limitation PT Problem 3 PT Problem #3 Impaired Range of Motion PT Goal 1 Goal pt not report pain increase with: 1* standing trunk flexion--fingers to knees 2* supine R hip flexion 3* supine L hip flexion PT Problem 4 PT Problem #4 Impaired Strength PT Goal 1 Goal 1* 2 minute walking test distance of 450' pt able to perform 20 reps of mat hip strengthening exercises 2* R LE 3* L LE 4* pt able to perform 45 minutes of aquatic exercises
--- NOTE | 2022-10-03 13:30 | PTOPDC ---
Assessment and note entered by Jahaira Joseph, PT Evaluation Information Assessment Status Discharge Diagnosis low back pain, R hip and L hip pain Onset 6 months Subjective Information Heidy reports: therapy is helping her--hip moving better and not hurt as much; am going to go to the [facility] for the water exercises; have been walking about 1 mile is her limit, started doing the bicycle; am trying to lose weight, but not having any luck; wants to be finished up with therapy and do exercises on her own. Reported Pain Level Pain Score Self Report Additional Pain Score Comments pain range in the past week: 1-3/10, back, L hip and sometimes into L leg to foot with some exercises and walking; is sleeping through the night without awakening from pain; increase pain: walking over 1 mile decrease pain; heating pad, sit/rest, change positions lately- not been taking meloxicam or ibuprofen; Assessment PT Clinical Summary Heidy has received 9 PT sessions. Compared to the initial evaluation: pain rating has improved from 3-8/10 to 1-3/10; self assessment Oswestry improved from 56% to 36% limitation in activity level; reports home and walking activity improved; sleep is not disrupted due to pain; increase flexibility of R and L hamstring with supine SLR; standing trunk flexion and supine R hip IR no longer cause pain; increase strength with mat exercises and aquatic exercises. And is not taking any meds for back. Education completed for home exercises, pain management techniques, posture and body mechanics with home tasks. The goals were partially met. Discharge PT services, she is to continue with home exercises. Plan of Care PT Services Indicated No
== END 2022-10-03 14:07 | disposition home or self-care (01) ==
LOC: ANHPT 12:30
PROVIDERS: PCP Family Medicine; Visit Provider Physician Assistant Medical
DX: M25.551 Pain in right hip (principal); M25.552 Pain in left hip; M54.50 Low back pain, unspecified; M79.606 Pain in leg, unspecified; G89.29 Other chronic pain
CPT/HCPCS: 97110; 97113; 97161; 97530

== ENCOUNTER 2022-11-25 08:23 | Outpatient (CLI) | payer MEDICARE, BC, SELFPAY ==
--- NOTE | ~2022-11-25 | DEXA_ITS ---
Bone Density Report Name: JD AGGARWAL Age: 72 Sex: Female Ethnicity: White Date of : 1950 Indication: postmenopausal; screening for osteoporosis; height loss; prior fracture; hysterectomy; Referring Provider: FERNIE BEY Study: Bone densitometry was performed. Exam Date: November 25, 2022 Accession number: [id number] Bone Density: Region BMD T-score Z-score Classification AP Spine(L1, L4) 1.119 0.7 3.0 Normal Femoral Neck (Left) 0.782 -0.6 1.3 Normal Total Hip (Left) 0.930 -0.1 1.5 Normal Femoral Neck (Right) 0.804 -0.4 1.5 Normal Total Hip (Right) 0.980 0.3 2.0 Normal Total Hip Mean 0.955 0.1 1.8 Normal World Health Organization criteria for BMD impression classify patients as: Normal (T-score at or above -1.0), Osteopenia (T-score between -1.0 and -2.5), or Osteoporosis (T-score at or below -2.5). 10-year Fracture Risk: FRAX not reported because: All T-scores for Spine Total, Hip Total, Femoral Neck at or above -1.0 Previous Exams: Region Exam Age BMD T-score BMD Change BMD Change Date g/cm2 vs Baseline vs Previous AP Spine (L1,L4) 11/25/2022 72 1.119 0.7 0.008 (0.8%) 0.008 (0.8%) 09/29/2020 70 1.111 0.7 Total Hip(Left) 11/25/2022 72 0.930 -0.1 -0.028 (-2.9%) -0.028 (-2.9%) 09/29/2020 70 0.957 0.1 Total Hip(Right) 11/25/2022 72 0.980 0.3 0.008 (0.8%) 0.008 (0.8%) 09/29/2020 70 0.972 0.2 *Denotes significance at 95% confidence level, LSC for AP Spine = 0.022 g/cm2, LSC for Total Hip = 0.027 g/cm2 Clinical Information Provided by Patient: Has had a low trauma fracture Has used the following medications: Fosamax (i.e. alendronate), Vitamin D Has the following medical conditions: Hysterectomy Patient maximum height was 65 Menopause Age: 50 Drinks caffeinated beverages Onset of menses at age 13 Number of children 3 Impression: The patient has normal bone mass. The patient has risk factors, including: previous fracture. The BMD for the Total Hip(Left) decreased, changing by -2.9% since the last DXA exam. Discussion: BONE DENSITY IS ABOVE THE MINIMUM DESIRABLE LEVEL AT ALL SKELETAL SITES TESTED. This patient?s bone mineral density is above the minimum desirable level (T-score -1.0 or better) at all sites measured. The patient should follow a healthful lifestyle (good nutrition with adequate calcium and vitamin D, and appropriate weight-bearing exercise). Follow-Up: Con
--- NOTE | ~2022-11-25 | MM_ITS ---
EXAMINATION: MM screening [facility] BI w henry HISTORY: Screening TECHNIQUE: Craniocaudal and mediolateral oblique 3-D tomosynthesis images were obtained and synthetic 2-D images were generated. CAD analysis was submitted and interpreted. COMPARISON: Comparison to multiple prior studies sequentially, with oldest reviewed study dated 10/2017. BREAST PARENCHYMAL COMPOSITION: There are scattered areas of fibroglandular density. FINDINGS: There is no evidence of suspicious mass, calcification, or architectural distortion to sugg est malignancy in either breast. There has been no suspicious interval change. IMPRESSION: 1. No mammographic evidence of malignancy. 2. Recommend routine screening mammography in one year. BI-RADS Category 1: Negative Reviewed, dictated and finalized at location A.
== END 2022-11-25 08:24 | disposition home or self-care (01) ==
LOC: ANHIMG 08:25
PROVIDERS: PCP Family Medicine; Visit Provider Obstetrics & Gynecology
DX: Z12.31 Encounter for screening mammogram for malignant neoplasm of breast (principal); Z78.0 Asymptomatic menopausal state
CPT/HCPCS: 77063; 77067; 77080

== ENCOUNTER 2023-08-22 09:31 | Outpatient (CLI) | payer MEDICARE, BC, SELFPAY | END 2023-08-22 09:32 | PROVIDERS: PCP Family Medicine; Visit Provider Nurse Practitioner Adult Health | DX: M25.562 Pain in left knee (principal) | CPT/HCPCS: 73562 ==

== ENCOUNTER 2023-10-27 13:30 | Outpatient (RCR) | payer MEDICARE, BC, SELFPAY ==
--- NOTE | 2023-09-22 15:54 | PTOPEVAL1 ---
Assessment and note entered by Aurelia Muniz, PT Evaluation Information Assessment Status Evaluation Diagnosis L hip and L knee pain Onset chronic, worsening over time; worst possible pain happened approx 3 weeks ago, prompted pt to see MD Therapy Considerations: weakness, muscle imbalance, gait abnormalities Subjective Information Pt reports pain has been going on for several months, recently taking pain medications ( meloxicam, tramadol, cyclobenzaprine) which greatly reduced the pain. Pain is increased at night, prolonged sitting position, prolonged standing and walking. Relief felt by elevating BLEs, heating pad. Pt has increased difficulty going up/down stairs, getting in and out of the care. Reports sitting more and more on her recliner and not doing much. Reported Pain Level Pain Score 4: Self Report Assessment PT Clinical Summary Pt is a 73 female who presents with increased pain to L knee and hip, worst with prolonged standing and walking; stabbing and shooting pain in nature that radiates down to the medial patellar area, to her marx. She also states sometimes the pain in the hip and glutes flare up as well which limits her from doing anything at all. Per X-ray reports and Hospital records, pt has severe spodylosis of the lumbar spine and mild L hip OA both conditions appear to have been the cause of current knee problem. She will benefit from skilled PT for pain management, lumbar stabilization, to improve strength, joint mobility and gait mechanics. Plan of Care Interventions Electrical Stimulation,Gait Training,Hot Pack/Cold Pack,Manual Therapy,Neuro Re-education,Patient/ Caregiver Educati,Therapeutic Activities, Therapeutic Exercise,Ultrasound PT Services Indicated Yes Treatment Frequency and 2x/wk for 8 visits Duration These treatments will address the objective and functional deficits as defined above. The patient will be advanced safely and appropriately in order for the patient to progress towards his/her prior level of function. Additional exercises will be introduced and as well as a comprehensive home exercise program upon discharge, if needed, ?to ensure carryover of functional gains achieved in the clinic. This treatment plan has been reviewed and agreement upon by the patient.
--- NOTE | 2023-10-27 14:14 | PTOPDC ---
Assessment and note entered by Jahaira Joseph, PT Discharge Report Assessment Status Discharge Diagnosis L knee pain Onset approx 3 weeks ago Subjective Information knee feels like it is getting more frozen and stiff; have pain in back, L hip and L knee; have not been doing much activity--order groceries to avoid shopping, not doing much house cleaning; do not use the cane anymore, but sometimes the knee feels like it is going to give out; have membership at [employer]- do pool exercises there, but did not do when knee hurting so bad; Reported Pain Level Pain Score Self Report Additional Pain Score Comments pain range in the past week: 1-8/10;lateral, medial and anterior knee; also reports pain in L hip--anterior and lateral hip decrease pain: volteran cream, elevate leg increase pain: cleaning home, walk about 1/2 block; stand/walking in home 10-15 min, then have to sit down; pt has home stim unit--has not been using, not sure how to do pads; discussed with pt and encouraged use. Assessment PT Clinical Summary Heidy has received a total of 9 PT sessions. Compared to the initial evaluation, pain of the L knee has decreased at the low rating from 4 to 1/ 10 and worst rating same at 8/10; self assessment LE functional scale from 78 to 81% limitation in activity; increased knee flexion from 80' to 120' increase strength of L LE; continues to have pain in L hip and low back; 2 minute walking test distance of 375' and 5 reps sit/stand time of 19 seconds. Education completed for HEP. The goals were partially met. Discharge PT treatments. She is to continue with HEP and return to aquatic exercises. Discussed with pt--follow up with medical care provider; discussed possible referral to orthopedic for consult of THR and TKR. Also discussed with her how low back pain is involved with hip and knee pain. Plan of Care PT Services Indicated No
== END 2023-12-08 11:20 | disposition home or self-care (01) ==
LOC: ANHPT 13:30
PROVIDERS: PCP Family Medicine; Visit Provider Physician Assistant Medical
DX: M25.562 Pain in left knee (principal)
CPT/HCPCS: 97014; 97110; 97116; 97140; 97161; 97530; G0283

== ENCOUNTER 2023-12-24 15:02 | Outpatient (CLI) | payer MEDICARE, BC, SELFPAY ==
--- NOTE | ~2023-12-24 | MM_ITS ---
EXAMINATION: MM screening [facility] BI w henry HISTORY: Screening mammogram TECHNIQUE: Craniocaudal and mediolateral oblique 3-D tomosynthesis images were obtained and synthetic 2-D images were generated. CAD analysis was submitted and interpreted. COMPARISON: 11/25/2022, 11/21/2021, 09/29/2020 BREAST PARENCHYMAL COMPOSITION:Not Dense. There are scattered areas of fibroglandular density. FINDINGS: No suspicious mass, calcification, or architectural distortion are identified in either ismael ast to suggest malignancy. There has been no suspicious interval change. IMPRESSION: No mammographic evidence of malignancy. Recommend routine screening mammography in one year. BI-RADS Category 1: Negative Reviewed, dictated and finalized at location .
== END 2023-12-24 15:03 | disposition home or self-care (01) ==
LOC: ANHIMG 15:07
PROVIDERS: PCP Family Medicine; Visit Provider Obstetrics & Gynecology
DX: Z12.31 Encounter for screening mammogram for malignant neoplasm of breast (principal)
CPT/HCPCS: 77063; 77067

== ENCOUNTER 2024-02-13 06:56 | Outpatient (CLI) | payer MEDICARE, BC, SELFPAY ==
--- NOTE | ~2024-02-13 | XR_ITS ---
EXAMINATION: XR lumbar spine 2-3V DATE: 02/13/2024 07:29 INDICATION: Lumbar spondylosis. TECHNIQUE: 3 views of lumbar spine were obtained. COMPARISON: Lumbar spine radiographs 08/13/2022 FINDINGS: There is 6 degrees levocurvature of thoracolumbar spine. There is 3 mm retrolisthesis of L2 on L3, L3 on L4, and L4 on L5. There is mild chronic anterior wedging of L1 and L2 vertebral bodies. There is moderately decreased disc height at L1-L2 and L2-L3, mildly decreased disc height at L3-L4, severely decreased disc height at L4-L5, and moderately decreased disc height at L5-S1. There is mul tilevel facet joint osteoarthritis, severe in lower lumbar spine. Surgical clips in the right upper q uadrant are likely from cholecystectomy. IMPRESSION: 1. Severe lumbar spondylosis. Reviewed, dictated and finalized at location B.
--- NOTE | ~2024-02-13 | XR_ITS ---
EXAMINATION: XR hip BI 2V w AP pelvis DATE: 02/13/2024 07:29 INDICATION: Unilateral primary osteoarthritis, right hip. TECHNIQUE: An anteroposterior view of the pelvis and 2 views of each hip were obtained. COMPARISON: Pelvis and hip radiographs 08/13/2022 FINDINGS: Alignment is normal. No fracture. There is severe lumbar spondylosis. There is mild osteoar thritis of the hips. IMPRESSION: 1. Mild osteoarthritis of the hips. Reviewed, dictated and finalized at location B.
== END 2024-02-13 06:57 | disposition home or self-care (01) ==
PROVIDERS: PCP Physician Assistant Medical; Visit Provider Physician Assistant Surgical
DX: M16.0 Bilateral primary osteoarthritis of hip (principal); M47.896 Other spondylosis, lumbar region
CPT/HCPCS: 72100; 73521

== ENCOUNTER 2024-07-07 14:50 | Outpatient (CLI) | payer MEDICARE, BC, SELFPAY ==
--- NOTE | ~2024-07-07 | XR_ITS ---
XR knee RT min 4V 07/07/2024 15:06 Indication: Right knee pain Procedure: 4 views right knee Comparison: No prior studies for comparison. Findings: There is anatomic alignment. No fracture or traumatic malalignment. No significant joint sp zoraida narrowing. No significant joint effusion. No foreign bodies. There is mild patellofemoral and med ial compartment osteoarthritis Impression: 1: Mild polyarticular osteoarthritis. Reviewed, dictated and finalized at location A. Impression: 1: Mild polyarticular osteoarthritis.
== END 2024-07-07 14:51 | disposition home or self-care (01) ==
LOC: MICIMG 14:51
PROVIDERS: PCP Physician Assistant Medical; Visit Provider Orthopaedic Surgery
DX: M25.561 Pain in right knee (principal)
CPT/HCPCS: 73564

== ENCOUNTER 2024-08-26 09:00 | Outpatient (RCR) | payer MEDICARE, BC, SELFPAY ==
--- NOTE | 2024-08-03 09:05 | OPREHPOC ---
Outpatient Therapy Plan of Care This is a Multidisciplinary Plan of Care that may contain components documented by all disciplines (PT, OT, and ST.) PT Problem 1 PT Problem #1 Knowledge Deficit PT Goal 1 Goal / Goal Update *independent with HEP Target Visit 8 PT Problem 2 PT Problem #2 Pain PT Goal 1 Goal / Goal Update * pt report pain in R knee at 3/10 at worst Target Visit 8 PT Goal 2 Goal / Goal Update * pt report with sleeping, awaken 2x/night due to knee pain Target Visit 8 PT Problem 3 PT Problem #3 Impaired Strength PT Goal 1 Goal / Goal Update *increase strength of R hip and knee to 4+/5; to improve stability to knee Target Visit 8 PT Goal 2 Goal / Goal Update *single leg standing R x 10 seconds with good stability * standing bilateral PF x 15 reps with good stability Target Visit 8 PT Problem 4 PT Problem #4 Impaired Flexibility PT Goal 1 Goal / Goal Update *improve flexibility of R hip and knee, to improve mobility: 1* hamstring length with supine SLR to 70' 2* anterior hip-quad length with prone knee flexion 115' Target Visit 8
--- NOTE | 2024-08-03 09:05 | PTOPEVAL1 ---
Assessment and note entered by Jahaira Joseph, PT Evaluation Information Assessment Status Evaluation ICD-10 Condition Codes (PT) Pain in right knee M25.561 Other ICD-10 Condition Codes ( R knee primary OA M17.11;weakness, decreased mobility PT) Onset May 2024 Subjective Information chronic pain and arthritis in R knee- increase with home cleaning and kneeling on R knee; history of LBP, bilateral knee and hip pain, fibromyalgia; have been using the cane PRN due to more knee pain - normally do not use cane xray: mild to moderate medial knee joint narrowing & patella femoral changes injection on 07-23-24 has decreased her knee pain activity: independent with all home and self care tasks, live alone; 3 entry steps into home; have [facility] membership- try to go with her friend and walk several times a week; have done water exercises in the past and going to start doing again. Reported Pain Level Pain Score Self Report Additional Pain Score Comments pain range in the past week 1-08/21; medial knee increase pain: sitting in car and driving ~ 30 minute maximum; end of day/night time; lie on side with pressure on medial knee decrease pain: change positions, over the counter meds, heat, ice sleeping: awaken from sleep due to knee pain 6x/ night also: LBP, bilateral hip and L knee pain initially had swelling in her knee, now has decreased Assessment PT Clinical Summary Heidy has the diagnosis of R knee pain/ OA. She reports chronic pain in knee with increase doing more house cleaning. She uses the cane PRN due to pain and decrease pain since injection. LE functional scale self rating of 58% limitation in activity level. Sleeping is disrupted due to knee pain. She is active and independent with all home and self care tasks. Stairs increase her pain and do one step at time. Her medical history includes: bilateral knee and hip pain, low back pain and fibromyalgia. With the evaluation: R knee active ROM is WNL; pain over medial aspect of knee; weakness of hips and knees, with decreased flexibility of hamstring and anterior hip-quad muscles, bilateral Skilled PT services are indicated for modalities to decrease pain, therapeutic exercises to increase strength and flexibility of hips and knees, with education for HEP. Monitor back and hip pain during sessions. Plan of Care Interventions Electrical Stimulation,Hot Pack/Cold Pack,Manual Therapy,Neuro Re-education,Patient/Caregiver Education,Therapeutic Activities,Therapeutic Exercise,Ultrasound,Other Other Interventions taping PT Services Indicated Yes Treatment Frequency and 1-2x/wk for 8 visits Duration These treatments will address the objective and functional deficits as defined above. The patient will be advanced safely and appropriately in order for the patient to progress towards his/her prior level of function. Additional exercises will be introduced and as well as a comprehensive home exercise program upon discharge, if needed, ?to ensure carryover of functional gains achieved in the clinic. This treatment plan has been reviewed and agreement upon by the patient.
--- NOTE | 2024-08-26 09:58 | OPREHPOC ---
Outpatient Therapy Plan of Care This is a Multidisciplinary Plan of Care that may contain components documented by all disciplines (PT, OT, and ST.) PT Problem 1 PT Problem #1 Knowledge Deficit PT Goal 1 Goal / Goal Update *independent with HEP 08-26-24 d/c goal met Target Visit 8 Progress Met PT Problem 2 PT Problem #2 Pain PT Goal 1 Goal / Goal Update * pt report pain in R knee at 3/10 at worst 08-26-24 d/c goal met Target Visit 8 Progress Met PT Goal 2 Goal / Goal Update * pt report with sleeping, awaken 2x/night due to knee pain 08-26-24 d/c goal met Target Visit 8 Progress Met PT Problem 3 PT Problem #3 Impaired Strength PT Goal 1 Goal / Goal Update *increase strength of R hip and knee to 4+/5; to improve stability to knee 08-26-24 d/c goal met Target Visit 8 Progress Met PT Goal 2 Goal / Goal Update *single leg standing R x 10 seconds with good stability * standing bilateral PF x 15 reps with good stability 08-26-24 d/c goal met Target Visit 8 Progress Met PT Problem 4 PT Problem #4 Impaired Flexibility PT Goal 1 Goal / Goal Update *improve flexibility of R hip and knee, to improve mobility: 1* hamstring length with supine SLR to 70' 2* anterior hip-quad length with prone knee flexion 115' 08-26-24 d/c goal met Target Visit 8 Progress Met
--- NOTE | 2024-08-26 09:58 | PTOPDC ---
Assessment and note entered by Jahaira Joseph, PT Assessment Status Discharge ICD-10 Condition Codes (PT) Pain in right knee M25.561 Other ICD-10 Condition Codes ( R knee primary OA M17.11 PT) Onset May 2024 Subjective Information knee is better, less pain and stronger; have been doing the exercises and know I have to keep up with them when therapy is done; have pain in my knee, but it does not last as long; does not use the cane anymore. Have been going to the [facility] for walking and bicycle. agree to discharge therapy and continue with the exercises at home. Reported Pain Level Pain Score Self Report Pain Score Self Report Additional Pain Score Comments pain range in the past week: 0-3/10; medial knee; increase pain: walking outside about 15 minutes decrease pain: rest with sleeping report awakening 2-3x/night with moving and change of positions not using ice or meds lately- not need it; Assessment PT Clinical Summary Heidy has received 8 PT sessions. Compared to the initial eval, she has improved in all areas: increase strength & flexibility of R knee and hip; decreased pain rating to 0-3/10; sleeping has improved to awakening 2-3x/night, self assessment with LE functional scale rating of 53% limitation in activity and education for HEP and posture/positioning. The goals were achieved. Discharge PT services. She is to continue with her HEP and is going to the [facility]. Plan of Care PT Services Indicated No
== END 2024-08-26 13:56 | disposition home or self-care (01) ==
LOC: ANHPT 09:00
PROVIDERS: PCP Physician Assistant Medical; Visit Provider Physician Assistant Surgical
DX: M17.11 Unilateral primary osteoarthritis, right knee (principal)
CPT/HCPCS: 97110; 97140; 97162; 97530

== ENCOUNTER 2024-12-15 09:32 | Outpatient (CLI) | payer MEDICARE, BC, SELFPAY ==
--- NOTE | ~2024-12-15 | US_ITS ---
Examination: US abdomen complete Clinical History: R10.13 - Epigastric pain . Comparison: CT abdomen and pelvis 07/24/2020 Technique: Complete abdominal sonography Findings: Liver: Normal size. Normal echotexture. No intrahepatic biliary ductal dilatation. Normal hepatopedal flow main portal vein. Common duct: Normal caliber, 5 mm. Gallbladder: Removed. Spleen: Unremarkable. Pancreas: Largely obscured by bowel gas. Kidneys: Pelviectasis left kidney but no hydronephrosis. Aorta: No aneurysmal dilatation. Retrohepatic IVC: Unremarkable. IMPRESSION: 1. No acute findings. Reviewed, dictated and finalized at location R. IMPRESSION: 1. No acute findings.
--- OUTSIDE RECORDS SUMMARY | 2024-12-15 10:10 | XMS_ITS | Encounter Summary ---
Author Organization [facility] Address [address] Attn: Epic Prelude ADT JOAN CAST [id number] Care Team Providers Care Card Writer Hand Name Role Phone Adarsh Wells MD Primary Care Provider [phone] Encounter Details Date Type Department Care Team (Late st Contact Info) Description 12/19/1994 Outpatient Historical Manan Yeager Social History Tobacco Use Types Packs/Day Years Used Date Smoking Tobacco: Never Assessed Comments Unknown Sex and Gender Information Value Date Recorded Sex Assigned at Not on file Legal Sex Female 4:39 AM [employer] Gender Identity Not on file Sexual Orientation Not on file documented as of this encounter Plan of Treatment Not on file documented as of this encounter Visit Diagnoses Not on filedocumented in this encounter Care Teams Card Writer Hand Relationship Specialty Start Date End Date Adarsh Wells MD [address] [place] [place] [id number] PCP - General Family Practice 09/29/18 documented as of this encounter
--- OUTSIDE RECORDS SUMMARY | 2024-12-15 10:10 | XMS_ITS | Encounter Summary ---
Author Organization [facility] Address 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 [facility] [address] [phone] Dario Santos MD [id number] [place] [address] Social History Tobacco Use Types Packs/Day Years Used Date Smoking Tobacco: Never Assessed Comments Unknown Sex and Gender Information Value Date Recorded Sex Assigned at Not on file Legal Sex Female 4:39 AM HAT MENDER Gender Identity Not on file Sexual Orientation Not on file documented as of this encounter Plan of Treatment Not on file documented as of this encounter Visit Diagnoses Not on filedocumented in this encounter Care Teams Glove Tagger Relationship Specialty Start Date End Date Adarsh Wells MD [address] [place] [address] PCP - General Family Practice 09/29/18 documented as of this encounter
--- OUTSIDE RECORDS SUMMARY | 2024-12-15 10:10 | XMS_ITS | Clinical Summary ---
Author Organization [facility] Address [address] [facility] [place] [address] Phone Care Team Providers Care Water Hauler Name Role Phone Adarsh Wells MD Primary Care Provider Allergies Active Allergy Reactions Criticality Noted Date Comments Epinephrine Other (See Comments) 09/29/2018 HYPERVENTILATION Penicillins Hives High 09/29/2018 Medications eszopiclone (LUNESTA) 3 mg Tablet Take 3 mg by mouth nightly as needed for Insomnia. Active polycarbophil calcium (FIBERCON) 625 mg tablet Take 625 mg by mouth daily. Active Lactobacillus acidophilus (FLORAJEN ORAL) Take by mouth. Active gabapentin (NEURONTIN) 100 mg capsule Take 100 mg by mouth 3 times daily. Active metFORMIN (GLUCOPHAGE) 500 mg tablet Take 500 mg by mouth 2 times daily with meals. Active pantoprazole (PROTONIX) 40 mg Tablet, Delayed Release (E.C.) Take 40 mg by mouth daily. Active pravastatin (PRAVACHOL) 40 mg tablet Take 40 mg by mouth daily with supper. Active ferrous sulfate (SLOW FE) 142 mg (45 mg iron) Tablet Sustained Release Take 45 mg by mouth daily. Active VALSARTAN-HYDROC HLOROTHIAZIDE ORAL Take by mouth. Active Active Problems Problem Noted Date Diagnosed Date Family history of colon cancer 10/05/2018 Family history of uterine cancer 10/05/2018 Family history of breast cancer 10/05/2018 Genetic testing 10/05/2018 Family History Medical History Relation Name Comments Heart Disease Brother 1 Healthy Brother 2 Healthy Brother 3 Colon Cancer Daughter PMS 2+ Other Daughter PMS 2+ Heart Disease Father Stroke Father Breast Cancer Maternal Aunt 1 Breast Cancer Maternal Aunt 2 Breast Cancer Maternal Cousin Diabetes Maternal Grandmother Heart Disease Mother Stroke Mother Heart Disease Paternal Grandmother Heart Disease Sister 1 Cancer Sister 2 Uterine cancer Healthy Sister 3 Healthy Sister 4 Healthy Sister 5 Healthy Sister 6 Healthy Son Relation Name Status Comments Brother 1 Alive Brother 2 Alive Brother 3 Alive Daughter Alive Father Maternal Aunt 1 Maternal Aunt 2 Maternal Cousin Maternal Grandfather Maternal Grandmother Mother Paternal Grandfather Paternal Grandmother Sister 1 Sister 2 Alive Sister 3 Alive Sister 4 Alive Sister 5 Alive Sister 6 Alive Son Alive Social History Tobacco Use Types Packs/Day Years Used Date Smoking Tobacco: Never Smokeless Tobacco: Never Alcohol Use Standard Drinks/Week Comments Never 0 (1 standard drink = 0.6 oz pur e alcohol) Comments No Sex and Gender Information Value Date Recorded Sex Assigned at Not on file 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 Gender Identity Not on file Sexual Orientation Not on file Last Filed Vital Signs Vital Sign Reading Time Taken Comments Blood Pressure 142/90 09/29/2018 10:07 AM CDT Pulse 60 09/29/2018 10:07 AM CDT Temperature 36.6 C (97.9 F) 09/29/2018 10:07 AM CDT Respiratory Rate 16 09/29/2018 10:07 AM CDT Oxygen Saturation - - Inhaled Oxygen Concentration - - Weight 82.4 kg (181 lb 9.6 oz) 09/29/2018 10:07 AM CDT Height 162.6 cm (5' 4) 09/29/2018 10:07 AM CDT Body Mass Index 31.17 09/29/2018 10:07 AM CDT Plan of Treatment Health Maintenance Due Date Last Done Comments DTAP/TDAP/TD VACCINES (1 - Tdap) 1969 BREAST CANCER SCREENING 1990 COLORECTAL SCREENING 1995 Colorectal Cancer Screening 1995 FIT-DNA Q 3 years 1995 FIT/FOBT Q 1 year 1995 Flex Sig/CT Colonography Q 5 years 1995 PNEUMOCOCCAL VACCINE 50+ YEARS (1 of 1 - PCV) 03/31/20 00 ZOSTER VACCINE (1 of 2) 2000 OSTEOPOROSIS SCREENING 2015 INFLUENZA VACCINE (#1) 2024 RSV VACCINE (60+ or ) (1 - 1-dose 75+ series) 2025 Insurance MEDICARE PART A AND B [facility] Care Teams Water Hauler Relationship Specialty Start Date End Date Adarsh Wells MD [address] [place] [address] PCP - General Family Practice 09/29/18
--- OUTSIDE RECORDS SUMMARY | 2024-12-15 10:10 | XMS_ITS | Encounter Summary ---
Author Organization [facility] Address [address] [place] [address] Care Team Providers Care Marketing Manager Health Communications Name Role Phone Ronn Lechuga MD Primary Care Provider [phone] Encounter Details Date Type Department Care Team (Late st Contact Info) Description 08/14/2018 Lab Requisition [facility] D[facility] [address] [facility] [place] [address] Mary Baptiste MD [address] [facility] [address] [place] [address] Social History Tobacco Use Types Packs/Day Years Used Date Smoking Tobacco: Never Assessed Comments Unknown Sex and Gender Information Value Date Recorded Sex Assigned at Not on file Legal Sex Female 4:30 PM CDT Gender Identity Not on file Sexual Orientation Not on file documented as of this encounter Plan of Treatment Not on file documented as of this encounter Procedures Procedure Name Priority Date/Time Associated Diagnosis Comments DERMATOPATHOLOGY Routine 08/13/2018 12:0 0 AM CDT documented in this encounter Results * DERMATOPATHOLOGY (08/13/2018 12:00 AM CDT) Case Report Dermatopathology Report Case: [id number] Authorizing Provider: Mary Baptiste MD Collected: 08/13/2018 12:00 AM Pathologist: Randi Ulloa MD Received: 08/14/2018 06:52 AM Specimens: A) - Skin, right neck B) - Skin, left abdomen 9 3:41 PM CDT DERMATOPATHOLOGY LABORATORY Final Diagnosis Specimen A. 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 The specimen consists of a shave biopsy (3 pieces) [id number] x1, and 2x2x1 mm. Jar 0. Specimen B: Received is one formalin filled container labeled with the patient's name and designated left abdomen. The specimen consists of a shave biopsy measuring 17x8x1 mm. Jar 0. 3:41 PM [facility] DERMATOPATHOLOGY LABORATORY Microscopic Description Specimen A. SKIN, right neck: There are lymphocytes around blood vessels and histiocytes and multinucleated giant cells between collagen bundles some of which are arranged in a palisade. The infiltrate is composed of CD3 positive T-cells and CD68 positive histiocytes with only rare scattered CD20 positive B-cells. Polarizable foreign material is not identified. COMMENT: The histologic differential diagnosis includes a ruptured cyst or follicular or a lesion of granuloma annulare. Clinicopathologic correlation is recommended. Specimen B. SKIN, left abdomen: Sections show a proliferation of keratinocytes with overlying hyperkeratosis. Aggregates of keratinocytes with abundant pale-staining cytoplasm appear demarcated from surrounding basaloid keratinocytes. 3:41 PM [facility] DERMATOPATHOLOGY LABORATORY Disclaimer An external and internal positive and negative controls are appropriate for the histochemical, immunohistochemical and immunofluorescence stain(s) in this case (if any), except where stated explicitly. The performance characteristics of the stain(s) cited in this report were developed and its performance characteristic determined by the Dermatopathology Laboratory at [facility], directed by Dr. Marcell Celis. These tests need not be, and therefore are not, approved by the [place] Food and Drug Administration. The tests are used for clinical purposes. Billing Codes Specimen Charges Stain Charges 61622 57653 1 1 19612 99198 35072 1 1 1 9 3:41 PM CDT DERMATOPATHOLOGY LABORATORY Embedded Images 9 3:41 PM CDT DERMATOPATHOLOGY LABORATORY Pathology/Cytology TISSUE SPECIMEN FROM SKIN / Unknown 08/13/2018 08/14/2018 6:52 AM CDT Miscellaneous samples (specimen) TISSUE SPECIMEN FROM SKIN / Unknown 08/13/2018 08/14/2018 6:52 AM CDT Mary Baptiste MD LAB - PATHOLOGY/CYTOLOGY OR DERABLES Final Result DERMATOPATHOLOGY LABORATORY [facility] - Department of Dermatology [address] [place] [address] [phone] documented in this encounter Visit Diagnoses Not on filedocumented in this encounter Care Teams Marketing Manager Health Communications Relationship Specialty Start Date End Date Ronn Lechuga MD [address] [place] [id number] PCP - General 08/13/18 documented as of this encounter
--- OUTSIDE RECORDS SUMMARY | 2024-12-15 10:10 | XMS_ITS | Encounter Summary ---
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 [phone] PCP - General Family Practice 09/29/18 documented as of this encounter
--- OUTSIDE RECORDS SUMMARY | 2024-12-15 10:10 | XMS_ITS | Encounter Summary ---
Author Organization [facility] Address [address] [place] [address] Care Team Providers Care University Teacher Name Role Phone Adarsh Wells MD Primary Care Provider [phone] Encounter Details Date Type Department Care Team (Latest Contact Info) Description 11/20/1998 Outpatient Historical [facility],NON-PATIENT Manan Yeager Laboratory examination (Primary Dx) Social History Tobacco Use Types Packs/Day Years Used Date Smoking Tobacco: Never Assessed Comments Unknown Sex and Gender Information Value Date Recorded Sex Assigned at Not on file Legal Sex Female 4:39 AM DRIER TENDER Gender Identity Not on file Sexual Orientation Not on file documented as of this encounter Plan of Treatment Not on file documented as of this encounter Visit Diagnoses Diagnosis Laboratory examination- Primary documented in this encounter Care Teams University Teacher Relationship Specialty Start Date End Date Adarsh Wells MD [address] [place] [address] PCP - General Family Practice 09/29/18 documented as of this encounter
--- OUTSIDE RECORDS SUMMARY | 2024-12-15 10:10 | XMS_ITS | Clinical Summary ---
Author Organization [facility] Address [address] [place] [address] Care Team Providers Care Nail Technician Teacher Name Role Phone Adarsh Wells MD Primary Care Provider [phone] Allergies Active Allergy Reactions Criticality Noted Date Comments Adhesive Hives Medium 08/07/2020 Amlodipine Edema Medium 11/16/2021 Codeine Vomiting Low 11/16/2021 Epinephrine Other (See comments) Low 08/07/2020 Tachycardia Morphine Hallucinations Medium 08/07/2020 Penicillins Hives Medium 08/07/2020 Medications fluticasone propionate (FLONASE) 50 mcg/actuation nasal spray fluticasone propionate 50 mcg/actuation nasal spray,suspensi on Active melatonin 5 mg tablet Active metFORMIN XR (GLUCOPHAGE XR) 500 mg 24 hr tablet Take 4 tablets (2,000 mg total) by mouth daily 08/14/19 22 Active cholecalcifer ol (VITAMIN D-3) 5,000 unit capsule Take 1 capsule (5,000 Units total) by mouth daily Active omeprazole (PriLOSEC) 20 mg capsule Take 2 capsules (40 mg total) by mouth 2 (two) times a day 08/14/19 22 Active Farxiga 5 mg tablet 08/21/19 22 Active gabapentin (NEURONTIN) 300 mg capsule Take 1 capsule (300 mg total) by mouth 3 (three) times a day 10/07/19 22 Active cetirizine (ZyrTEC) 10 mg tablet Take 1 tablet (10 mg total) by mouth daily Active UNABLE TO FIND Magnesium Cream for restless leg Active mv/FA/dha/epa /fish/torrie/D3/ gink (WOMEN'S 50 + VITAPAK ORAL) Take by mouth Active alpha lipoic acid 100 mg capsule Take by mouth Active ferrous sulfate 325 mg (65 mg of elemental iron) tablet Take 1 tablet (325 mg total) by mouth daily 02/01/20 23 Active B complex 05-wyluu-B-bi ot-zinc [id number] mv-hp-irp-mg tablet Take by mouth Active Ozempic 0.25 mg or 0.5 mg (2 mg/3 mL) pen injector injection 03/05/20 23 Active magnesium gluconate 200 mg tabletIndicat ions:hypomagn esemia 1.25 tablets (250 mg total) Active rosuvastatin (CRESTOR) 40 mg tablet Take 1 tablet (40 mg total) by mouth daily 03/05/20 23 Active meloxicam (MOBIC) 15 mg tablet Take 1 tablet (15 mg total) by mouth daily Active amLODIPine (NORVASC) 5 mg tablet Take 1 tablet (5 mg total) by mouth daily 90 tablet 3 05/13/19 25 Active valsartan (DIOVAN) 320 mg tablet Take 1 tablet (320 mg total) by mouth daily 90 tablet 3 05/13/19 25 Active spironolacton e (ALDACTONE) 25 mg tablet TAKE 1 TABLET (25 MG TOTAL) BY MOUTH DAILY. 90 tablet 2 07/20/19 25 025 Active hydrALAZINE (APRESOLINE) 25 mg tabletIndicat ions:Hyperten khoa associated with diabetes (HCC) TAKE 1 TABLET BY MOUTH TWICE A DAY 180 tablet 1 11/25/19 25 Active hydrALAZINE (APRESOLINE) 25 mg tabletIndicat ions:hyperten khoa Take 1 tablet (25 mg total) by mouth 2 (two) times a day 30 tablet 11 05/25/19 25 025 Discontinued(Re order) hydrALAZINE (APRESOLINE) 25 mg tabletIndicat ions:hyperten khoa Take 1 tablet (25 mg total) by mouth 2 (two) times a day 30 tablet 1 11/17/19 25 025 Discontinued Active Problems Problem Noted Date Diagnosed Date Nonrheumatic aortic valve stenosis 05/08/2023 Gastroesophageal reflux disease 02/11/2023 Hypertension associated with diabetes 11/16/2021 Mixed diabetic hyperlipidemi a associated with type 2 diabetes mellitus 11/16/2021 Medication side effects 11/16/2021 Class 1 obesity due to exces s calories with serious comorbidity and body mass index (BMI) of 32.0 to 32.9 in adult 11/16/2021 SHAY on CPAP 11/16/2021 Chronic fatigue 11/16/2021 Bradycardia 11/16/2021 Other chest pain 11/16/2021 Nonrheumatic aortic valve insufficiency 11/17/19 Surgical History Surgery Date Site/Laterality Comments SHOULDER SURGERY HYSTERECTOMY 04/14/2018 - 04/13/2019 SECTION x2 LAPAROSCOPIC CHOLECYSTECTOMY TONSILLECTOMY Medical History Medical History Date Comments Diastolic dysfunction Sleep apnea Hypertension Diabetes mellitus (HCC) Edema PLMD (periodic limb movement disorder) Irritable bowel Heart murmur Family History Medical History Relation Name Comments [place]CIN[place] OF [place] Daughter Coronary artery disease Father Heart attack Father Hypertension Father Stroke Father Coronary artery disease Mother Diabetes Mother Gallbladder disease Mother Heart attack Mother Hyperlipidemia Mother Hypertension Mother Relation Name Status Comments Daughter Alive Father Mother Social History Tobacco Use Types Packs/Day Years Used Date Smoking Tobacco: Never Tobacco Cessation:Counseling Given: Not Answered Comments Unknown Sex and Gender Information Value Date Recorded Sex Assigned at Not on file Legal Sex Female 5:24 AM HEALTH AND SAFETY REPRESENTATIVE Gender Identity Not on file Sexual Orientation Not on file Obstetrics History Last Filed Vital Signs Vital Sign Reading Time Taken Comments Blood Pressure 108/60 05/13/2024 9:24 AM HEALTH AND SAFETY REPRESENTATIVE Pulse 62 05/13/2024 9:24 AM HEALTH AND SAFETY REPRESENTATIVE Temperature - - Respiratory Rate - - Oxygen Saturation 96% 05/13/2024 9:24 AM HEALTH AND SAFETY REPRESENTATIVE Inhaled Oxygen Concentration - - Weight 83.9 kg (185 lb) 05/13/2024 9:24 AM HEALTH AND SAFETY REPRESENTATIVE Height 162.6 cm (5' 4) 05/13/2024 9:24 AM HEALTH AND SAFETY REPRESENTATIVE Body Mass Index 31.76 05/13/2024 9:24 AM HEALTH AND SAFETY REPRESENTATIVE Plan of Treatment Health Maintenance Due Date Last Done Comments Albumin Creatinine Ratio, Urine 1950 Breast Cancer Screening-Mammogram 1950 Colon Cancer Screening-Colonoscopy 1950 Depression Screening 1950 Fall Risk Assessment 1950 Hemoglobin A1C 1950 Hepatitis C Screening 1950 Osteoporosis Screening-Bone Density Scan 1950 Dilated Eye Exam 1950 Foot Exam 1950 Hepatitis B Screening 1968 Well Visit 65+ 2015 eGFR 05/09/2023 05/09/2022, 03/26/2022 Influenza Vaccine (#1) 2024 9, 12/26/2017, 12/30/2016, Additional history exists Lipid Panel 05/13/2025 05/13/2024, 04/15, 02/11/2023, Additional history exists DTaP/Tdap/Td Vaccine (4 - Td or Tdap) 03/15/2029 03/15/2019, 04/13/2008, 07/23/2007 Pneumococcal vaccine 65+ Completed 017, 05/16/2016, 04/13/2016, Additional history exists Zoster Vaccine Completed 05/22/2019, 05/2018, 04/13/2011, Additional history exists Procedures Procedure Name Priority Date/Time Associated Diagnosis Comments LIPID PANEL Routine 05/13/2024 9:20 AM HEALTH AND SAFETY REPRESENTATIVE BASIC METABOLIC PANEL Routine 05/09/2022 8:20 AM HEALTH AND SAFETY REPRESENTATIVE Hyponatremia from Last 3 Months or Most Recently Relevant to Health Maintenance Results * Lipid panel (05/13/2024 9:20 AM HEALTH AND SAFETY REPRESENTATIVE) SCRIBED Cholesterol, Total 128 <100 EXTERNAL LAB SCRIBED HDL 44 >40 EXTERNAL LAB SCRIBED LDL 53 <100 EXTERNAL LAB SCRIBED Triglycerides 151 <150 EXTERNAL LAB Blood 05/13/2024 9:20 AM HEALTH AND SAFETY REPRESENTATIVE us [facility] Jimmy Smith MD LAB BLOOD ORDERABLES Fi nal Result EXTERNAL LAB * (ABNORMAL) Basic metabolic panel (05/09/2022 8:20 AM HEALTH AND SAFETY REPRESENTATIVE) Glucose 123(H) 65 - 99 mg/dL [facility] Comment: Fasting reference interval For someone without known diabetes, a glucose value between 100 and 125 mg/dL is consistent with prediabetes and should be confirmed with a follow-up test. BUN 16 7 - 25 mg/dL [facility] Creatinine 0.66 0.60 - 1.00 mg/dL [facility] eGFR 93 > OR = 60 mL/min/1. 73m2 [facility] Comment: The eGFR is based on the CKD-EPI 2020 equation. To calculate the new eGFR from a previous Creatinine or Cystatin C result, go to https://www.kidney.org/professionals/ kdoqi/gfr%5Fcalculator BUN/creat ratio NOT APPLICABLE 6 - 22 (calc) [facility] Sodium 135 135 - 146 mmol/L [facility] Potassium, pl 4.3 3.5 - 5.3 mmol/L [facility] Chloride 97(L) 98 - 110 mmol/L [facility] CO2 32 20 - 32 mmol/L [facility] Calcium 9.5 8.6 - 10.4 mg/dL [facility] Blood 05/09/2022 8:20 AM HEALTH AND SAFETY REPRESENTATIVE 05/09/2022 8:20 AM HEALTH AND SAFETY REPRESENTATIVE Toshia Gregg NP LAB BLOOD ORDERABLES Kira frey Result [facility] [id number] [place] [address] from Last 3 Months or Most Recently Relevant to Health Maintenance Insurance MEDICARE MEDICARE [facility] MEDICARE [facility] Care Teams Nail Technician Teacher Relationship Specialty Start Date End Date Adarsh Wells MD PCP - General Family Medicine 11/16/21
--- OUTSIDE RECORDS SUMMARY | 2024-12-15 10:10 | XMS_ITS | Encounter Summary ---
Author Organization [facility] Address [address] [facility] Attn: Epic Prelude ADT JONA CAST [address] Care Team Providers Care Ux Design Manager Name Role Phone Adarsh Wells MD Primary Care Provider [phone] Encounter Details Date Type Department Care Team (Late st Contact Info) Description 11/22/1996 Outpatient Historical Conversion, History Toy Manan Social History Tobacco Use Types Packs/Day Years Used Date Smoking Tobacco: Never Assessed Comments Unknown Sex and Gender Information Value Date Recorded Sex Assigned at Not on file Legal Sex Female 4:39 AM SHIP SELF DEFENSE SYSTEM MK1 OPERATOR Gender Identity Not on file Sexual Orientation Not on file documented as of this encounter Plan of Treatment Not on file documented as of this encounter Visit Diagnoses Not on filedocumented in this encounter Care Teams Ux Design Manager Relationship Specialty Start Date End Date Adarsh Wells MD [address] [place] [address] PCP - General Family Practice 09/29/18 documented as of this encounter
--- OUTSIDE RECORDS SUMMARY | 2024-12-15 10:10 | XMS_ITS | Encounter Summary ---
Author Organization [facility] Address [address] [place] [address] Care Team Providers Care Branch Store Manager Name Role Phone Adarsh Wells MD Primary Care Provider [phone] Encounter Details Date Type Department Care Team (Late st Contact Info) Description 11/16/1998 Outpatient Historical [facility] BEHAVIORAL SPECIALIST - Medical [facility] [address] [facility] [address] [phone] Manan Yeager Social History Tobacco Use Types Packs/Day Years Used Date Smoking Tobacco: Never Assessed Comments Unknown Sex and Gender Information Value Date Recorded Sex Assigned at Not on file Legal Sex Female 4:39 AM ABSENCE MANAGEMENT CONSULTANT Gender Identity Not on file Sexual Orientation Not on file documented as of this encounter Plan of Treatment Not on file documented as of this encounter Visit Diagnoses Not on filedocumented in this encounter Care Teams Branch Store Manager Relationship Specialty Start Date End Date Adarsh Wells MD [address] [place] [address] PCP - General Family Practice 09/29/18 documented as of this encounter
--- OUTSIDE RECORDS SUMMARY | 2024-12-15 10:10 | XMS_ITS | Clinical Summary ---
Author Organization [facility] Address [address] [place] [address] Care Team Providers Care Semiautomatic Taper Operator Name Role Phone Ronn Lechuga MD Primary Care Provider [phone] Source Comments [facility],non-owned Affiliates and Associated Physician Practices is amultiple site organization consisting of ambulatory clinics and hospital sitesin [place], [place], [place] and [place]. This disclosure is being madepursuant to the Care Everywhere program and may not contain all information available regarding this patient. Last updated 18.[facility] [employer] Social History Tobacco Use Types Packs/Day Years Used Date Smoking Tobacco: Never Assessed Comments Unknown Sex and Gender Information Value Date Recorded Sex Assigned at Not on file Legal Sex Female 4:30 PM CDT Gender Identity Not on file Sexual Orientation Not on file Plan of Treatment Health Maintenance Due Date Last Done Comments BONE DENSITY TESTING 1950 COLOGUARD (AGES 45-75) - COL ON CA SCREENING 1950 COLON MONITORING 1950 COLONOSCOPY - COLON CA SCREENING 1950 CT COLONOGRAPHY - COLON CA SCREENING 1950 Colorectal Cancer Screening 1950 FIT - COLON CA SCREENING 1950 FLEX SIG - COLON CA SCREENING 1950 LIPID TESTING 1950 MAMMOGRAM 1950 HEPATITIS C SCREENING 03/26/1968 DTAP/TDAP/TD VACCINES (1 - Tdap) 1969 PNEUMOCOCCAL VACCINE 50+ (1 of 1 - PCV) 2000 ZOSTER VACCINE (1 of 2) 2000 COVID-19 VACCINE (1 - 2023-2 5 season) 2023 DEPRESSION SCREENING 04/14/2024 INFLUENZA VACCINE (#1) 2024 Respiratory Syncytial Virus (RSV) Vaccine Pt: or over 60 yrs (1 - 1-dose 75+ series) 2025 HEPATITIS B VACCINE Aged Out No longe r eligible based on patient's age to complete this topic HIB VACCINE Aged Out No longer eligi ble based on patient's age to complete this topic HPV VACCINE Aged Out No longer eligi ble based on patient's age to complete this topic MENINGOCOCCAL (Group B) VACC INE SHARED DECISION-MAKING Aged Out No longer eligibl e based on patient's age to complete this topic MENINGOCOCCAL GROUPS A/C/Y/W VACCINE Aged Out No longer eligible b ased on patient's age to complete this [place] [address] ANTHEM ANTHEM Care Teams Semiautomatic Taper Operator Relationship Specialty Start Date End Date Ronn Lechuga MD [address] [place] [address] PCP - General 08/13/18
== END 2024-12-15 09:33 | disposition home or self-care (01) ==
PROVIDERS: PCP Family Medicine; Visit Provider Physician Assistant Medical
DX: R10.13 Epigastric pain (principal); G89.29 Other chronic pain
CPT/HCPCS: 76700

== ENCOUNTER 2025-01-03 15:25 | Outpatient (CLI) | payer MEDICARE, BC, SELFPAY ==
--- NOTE | ~2025-01-03 | MM_ITS ---
EXAMINATION: MM screening sintia BI w henry HISTORY: Screening TECHNIQUE: Craniocaudal and mediolateral oblique 3-D tomosynthesis images were obtained and synthetic 2-D images were generated. CAD analysis was submitted and interpreted. COMPARISON: Comparison to multiple prior studies sequentially, with oldest reviewed study dated , 09/28/2019 BREAST PARENCHYMAL COMPOSITION: There are scattered areas of fibroglandular density. FINDINGS: There is no evidence of suspicious mass, calcification, or architectural distortion to suggest malignancy in either breast. IMPRESSION: 1. No mammographic evidence of malignancy. 2. Recommend routine screening mammography in one year. BI-RADS Category 1: Negative Reviewed, dictated and finalized at location B.
--- OUTSIDE RECORDS SUMMARY | 2025-01-03 15:32 | XMS_ITS | Encounter Summary ---
Author Organization [facility] Address [address] [place] [address] Care Team Providers Care Education Program Specialist Name Role Phone Adarsh Wells MD Primary Care Provider [phone] Encounter Details Date Type Department Care Team (Late st Contact Info) Description 11/16/1998 Outpatient Historical [facility] SECURITY ALARM INSTALLER - Medical [facility] [address] [facility] [address] [address] Manan Yeager Social History Tobacco Use Types Packs/Day Years Used Date Smoking Tobacco: Never Assessed Comments Unknown Sex and Gender Information Value Date Recorded Sex Assigned at Not on file Legal Sex Female 4:39 AM PARTITION NOTCHER Gender Identity Not on file Sexual Orientation Not on file documented as of this encounter Plan of Treatment Not on file documented as of this encounter Visit Diagnoses Not on filedocumented in this encounter Care Teams Education Program Specialist Relationship Specialty Start Date End Date Adarsh Wells MD [address] [place] [address] PCP - General Family Practice 09/29/18 documented as of this encounter
--- OUTSIDE RECORDS SUMMARY | 2025-01-03 15:32 | XMS_ITS | Encounter Summary ---
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 [phone] PCP - General Family Practice 09/29/18 documented as of this encounter
--- OUTSIDE RECORDS SUMMARY | 2025-01-03 15:32 | XMS_ITS | Encounter Summary ---
Author Organization [facility] Address [address] [facility] [place] [address] Care Team Providers Care Blood Bank Calendar Control Clerk Name Role Phone Ronn Lechuga MD Primary Care Provider [phone] Encounter Details Date Type Department Care Team (Late st Contact Info) Description 08/14/2018 Lab Requisition [facility] Care [facility] [address] [facility] [place] [address] Mary Baptiste MD [address] [facility] [address] [place] [address] Social History Tobacco Use Types Packs/Day Years [...] AM CDT) Case Report Dermatopathology Report Case: [id number] Authorizing Provider: Mary Baptiste MD Collected: 08/13/2018 12:00 AM Pathologist: Randi Ulloa MD Received: 08/14/2018 06:52 AM Specimens: A) - Skin, right neck B) - Skin, left abdomen 9 3:41 PM CDT DERMATOPATHOLOGY LABORATORY Final Diagnosis Specimen A. 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 The specimen consists of a shave biopsy (3 pieces) [id number],5x3 x1, and 2x2x1 mm. Jar 0. Specimen B: Received is one formalin filled container labeled with the patient's name and designated left abdomen. The specimen consists of a shave biopsy measuring 17x8x1 mm. Jar 0. 3:41 PM [facility] DERMATOPATHOLOGY LABORATORY Microscopic Description Specimen A. [...] demarcated from surrounding basaloid keratinocytes. 3:41 PM [facility] DERMATOPATHOLOGY LABORATORY Disclaimer An external and internal positive and negative controls are appropriate for the histochemical, immunohistochemical and immunofluorescence stain(s) in this case (if any), except where stated explicitly. The performance characteristics of the stain(s) cited in this report were developed and its performance characteristic determined by the Dermatopathology Laboratory at [facility], directed by Dr. Marcell Celis. These tests need not be, and therefore are not, approved by the [place] Food and Drug Administration. The tests are used for clinical purposes. Billing Codes Specimen Charges Stain Charges 59004 65305 1 1 92312 23317 49914 1 1 1 9 3:41 PM CDT DERMATOPATHOLOGY LABORATORY Embedded Images 9 3:41 PM CDT DERMATOPATHOLOGY LABORATORY Pathology/Cytology TISSUE SPECIMEN FROM SKIN / Unknown 08/13/2018 08/14/2018 6:52 AM CDT Miscellaneous samples (specimen) TISSUE SPECIMEN FROM SKIN / Unknown 08/13/2018 08/14/2018 6:52 AM CDT Mary Baptiste MD LAB - PATHOLOGY/CYTOLOGY OR DERABLES Final Result DERMATOPATHOLOGY LABORATORY [facility] - Department of Dermatology [address] [place] [address] [phone] documented in this encounter Visit Diagnoses Not on filedocumented in this encounter Care Teams Blood Bank Calendar Control Clerk Relationship Specialty Start Date End Date Ronn Lechuga MD [address] [place] [address] PCP - General 08/13/18 documented as of this encounter
--- OUTSIDE RECORDS SUMMARY | 2025-01-03 15:32 | XMS_ITS | Encounter Summary ---
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 [phone] PCP - General Family Practice 09/29/18 documented as of this encounter
--- OUTSIDE RECORDS SUMMARY | 2025-01-03 15:32 | XMS_ITS | Clinical Summary ---
Author Organization [facility] Address [address] [facility] [place] [address] Care Team Providers Care Processing Specialist Name Role Phone Ronn Lechuga MD Primary Care Provider [phone] Source Comments [facility],non-owned Affiliates and Associated Physician Practices is amultiple site organization consisting of ambulatory clinics and hospital sitesin [place], [place], [place] and [place]. This disclosure is being madepursuant to the Care Everywhere program and may not contain all information available regarding this patient. Last updated 18.[facility] [employer] Social History Tobacco Use Types Packs/Day Years [...] 2000 ZOSTER VACCINE (1 of 2) 2000 DEPRESSION SCREENING 04/14/2024 COVID-19 VACCINE (1 - 4-2 5 season) 2024 INFLUENZA VACCINE (#1) 2024 Respiratory Syncytial Virus [...] age to complete this topic Insurance MEDICARE ANTHEM ANTHEM Care Teams Processing Specialist Relationship Specialty Start Date End Date Ronn Lechuga MD [address] [place] [address] PCP - General 08/13/18
--- OUTSIDE RECORDS SUMMARY | 2025-01-03 15:32 | XMS_ITS | Encounter Summary ---
Author Organization [facility] Address 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 [address] PCP - General Family Practice 09/29/18 documented as of this encounter
--- OUTSIDE RECORDS SUMMARY | 2025-01-03 15:32 | XMS_ITS | Encounter Summary ---
Author Organization [facility] Address [address] [place] [address] Care Team Providers Care Mail Courier Name Role Phone Adarsh Wells MD Primary Care Provider Encounter Details Date Type Department Care Team (Late st Contact Info) Description 11/21/1998 Outpatient Historical [facility] PANTOGRAPH WATCHER - Medical [facility] [address] [phone] Dario Santos MD [id number] [place] [address] Social History Tobacco Use Types Packs/Day Years Used Date Smoking Tobacco: Never Assessed Comments Unknown Sex and Gender Information Value Date Recorded Sex Assigned at Not on file Legal Sex Female 4:39 AM TOWEL INSPECTOR Gender Identity Not on file Sexual Orientation Not on file documented as of this encounter Plan of Treatment Not on file documented as of this encounter Visit Diagnoses Not on filedocumented in this encounter Care Teams Mail Courier Relationship Specialty Start Date End Date Adarsh Wells MD [address] [place] [address] PCP - General Family Practice 09/29/18 documented as of this encounter
--- OUTSIDE RECORDS SUMMARY | 2025-01-03 15:32 | XMS_ITS | Clinical Summary ---
Author Organization [facility] Address [address] [facility] [place] [address] Phone Care Team Providers Care Song Lyricist Name Role Phone Adarsh Wells MD Primary Care Provider [phone] Allergies Active Allergy Reactions Criticality Noted Date [...] on file Legal Sex Female 4:39 AM ART SPECIALIST Gender Identity Not on file Sexual Orientation [...] 2025 Insurance MEDICARE PART A AND B [facility] Care Teams Song Lyricist Relationship Specialty Start Date End Date Adarsh Wells MD [address] [place] [address] PCP - General Family Practice 09/29/18
--- OUTSIDE RECORDS SUMMARY | 2025-01-03 15:32 | XMS_ITS | Encounter Summary ---
Author Organization [facility] Address [address] [facility] Attn: Epic Prelude ADT JONA CAST [address] Care Team Providers Care Painter And Body Mechanic Apprentice Name Role Phone Adarsh Wells MD Primary Care Provider [phone] Encounter Details Date Type Department Care Team (Late st Contact Info) Description 11/22/1996 Outpatient Historical Conversion, History Toy Manan Social History Tobacco Use Types Packs/Day Years Used Date Smoking Tobacco: Never Assessed Comments Unknown Sex and Gender Information Value Date Recorded Sex Assigned at Not on file Legal Sex Female 4:39 AM PLATER SUPERVISOR Gender Identity Not on file Sexual Orientation Not on file documented as of this encounter Plan of Treatment Not on file documented as of this encounter Visit Diagnoses Not on filedocumented in this encounter Care Teams Painter And Body Mechanic Apprentice Relationship Specialty Start Date End Date Adarsh Wells MD [address] [place] [address] PCP - General Family Practice 09/29/18 documented as of this encounter
--- OUTSIDE RECORDS SUMMARY | 2025-01-03 15:32 | XMS_ITS | Clinical Summary ---
Author Organization [facility] Address [address] [place] [address] Care Team Providers Care Turf Farmer Name Role Phone Adarsh Wells MD Primary Care Provider [phone] Allergies Active Allergy Reactions Criticality Noted Date Comments Adhesive Hives Medium 08/07/2020 Amlodipine Edema Medium 11/16/2021 Codeine Vomiting Low 11/16/2021 Epinephrine Other (See comments) Low 08/07/2020 Tachycardia Morphine Hallucinations Medium 08/07/2020 Penicillins Hives Medium 08/07/2020 Medications fluticasone propionate (FLONASE) 50 mcg/actuation nasal spray fluticasone propionate 50 mcg/actuation nasal spray,suspension Active melatonin 5 mg tablet Active metFORMIN XR (GLUCOPHAGE XR) 500 mg 24 hr tablet Take 4 tablets (2,000 mg total) by mouth daily 2 Active cholecalciferol (VITAMIN D-3) 5,000 unit capsule Take 1 capsule (5,000 Units total) by mouth daily Active omeprazole (PriLOSEC) 20 mg capsule Take 2 capsules (40 mg total) by mouth 2 (two) times a day 2 Active Farxiga 5 mg tablet 2 Active gabapentin (NEURONTIN) 300 mg capsule Take 1 capsule (300 mg total) by mouth 3 (three) times a day 2 Active cetirizine (ZyrTEC) 10 mg tablet Take 1 tablet (10 mg total) by mouth daily Active UNABLE TO FIND Magnesium Cream for restless leg Active mv/FA/dha/epa/f michael/torrie/D3/gink (WOMEN'S 50 + VITAPAK ORAL) Take by mouth Ac tive alpha lipoic acid 100 mg capsule Take by mouth Active ferrous sulfate 325 mg (65 mg of elemental iron) tablet Take 1 tablet (325 mg total) by mouth daily 3 Active B complex 54-hezac-V-biot -zinc [phone] gi-lv-ncv-mg tablet Take by mouth Active Ozempic 0.25 mg or 0.5 mg (2 mg/3 mL) pen injector injection 3 Active magnesium gluconate 200 mg tabletIndicatio ns:hypomagnesem ia 1.25 tablets (250 mg total) Active rosuvastatin (CRESTOR) 40 mg tablet Take 1 tablet (40 mg total) by mouth daily 3 Active meloxicam (MOBIC) 15 mg tablet Take 1 tablet (15 mg total) by mouth daily Active amLODIPine (NORVASC) 5 mg tablet Take 1 tablet (5 mg total) by mouth daily 90 tablet 3 5 Active valsartan (DIOVAN) 320 mg tablet Take 1 tablet (320 mg total) by mouth daily 90 tablet 3 5 Active spironolactone (ALDACTONE) 25 mg tablet TAKE 1 TABLET (25 MG TOTAL) BY MOUTH DAILY. 90 tablet 2 5 01/16/20 25 Active hydrALAZINE (APRESOLINE) 25 mg tabletIndicatio ns:Hypertension associated with diabetes (HCC) TAKE 1 TABLET BY MOUTH TWICE A DAY 180 tablet 1 5 Active Active Problems Problem Noted Date Diagnosed [...] pain 11/16/2021 Nonrheumatic aortic valve insufficiency 11/17/19 22 Surgical History Surgery Date Site/Laterality Comments SHOULDER [...] on file Legal Sex Female 5:24 AM FLIGHT SOFTWARE TEST ENGINEER Gender Identity Not on file Sexual Orientation Not on file Obstetrics History Last Filed Vital Signs Vital Sign Reading Time Taken Comments Blood Pressure 108/60 05/13/2024 9:24 AM FLIGHT SOFTWARE TEST ENGINEER Pulse 62 05/13/2024 9:24 AM FLIGHT SOFTWARE TEST ENGINEER Temperature - - Respiratory Rate - - Oxygen Saturation 96% 05/13/2024 9:24 AM FLIGHT SOFTWARE TEST ENGINEER Inhaled Oxygen Concentration - - Weight 83.9 kg (185 lb) 05/13/2024 9:24 AM FLIGHT SOFTWARE TEST ENGINEER Height 162.6 cm (5' 4) 05/13/2024 9:24 AM FLIGHT SOFTWARE TEST ENGINEER Body Mass Index 31.76 05/13/2024 9:24 AM FLIGHT SOFTWARE TEST ENGINEER Plan of Treatment Health Maintenance Due Date [...] Comments LIPID PANEL Routine 05/13/2024 9:20 AM FLIGHT SOFTWARE TEST ENGINEER BASIC METABOLIC PANEL Routine 05/09/2022 8:20 AM FLIGHT SOFTWARE TEST ENGINEER Hyponatremia from Last 3 Months or Most Recently Relevant to Health Maintenance Results * Lipid panel (05/13/2024 9:20 AM FLIGHT SOFTWARE TEST ENGINEER) SCRIBED Cholesterol, Total 128 <100 EXTERNAL LAB SCRIBED HDL 44 >40 EXTERNAL LAB SCRIBED LDL 53 <100 EXTERNAL LAB SCRIBED Triglycerides 151 <150 EXTERNAL LAB Blood 05/13/2024 9:20 AM FLIGHT SOFTWARE TEST ENGINEER [facility] Jimmy Smith MD LAB BLOOD ORDERABLES Fi nal Result EXTERNAL LAB * (ABNORMAL) Basic metabolic panel (05/09/2022 8:20 AM FLIGHT SOFTWARE TEST ENGINEER) Glucose 123(H) 65 - 99 mg/dL [facility] Comment: Fasting reference interval For someone without known diabetes, a glucose value between 100 and 125 mg/dL is consistent with prediabetes and should be confirmed with a follow-up test. BUN 16 7 - 25 mg/dL [facility] Creatinine 0.66 0.60 - 1.00 mg/dL [facility] eGFR 93 > OR = 60 mL/min/1. 73m2 [facility] Comment: The eGFR is based on the CKD-EPI 2020 equation. To calculate the new eGFR from a previous Creatinine or Cystatin C result, go to https://www.kidney.org/professionals/ kdoqi/gfr%5Fcalculator BUN/creat ratio NOT APPLICABLE 6 - 22 (calc) [facility] Sodium 135 135 - 146 mmol/L [facility] Potassium, pl 4.3 3.5 - 5.3 mmol/L [facility] Chloride 97(L) 98 - 110 mmol/L [facility] CO2 32 20 - 32 mmol/L [facility] Calcium 9.5 8.6 - 10.4 mg/dL [facility] Blood 05/09/2022 8:20 AM FLIGHT SOFTWARE TEST ENGINEER 05/09/2022 8:20 AM FLIGHT SOFTWARE TEST ENGINEER Toshia Gregg NP LAB BLOOD ORDERABLES Kira l Result [facility] [address] [place] [address] from Last 3 Months or Most Recently Relevant to Health Maintenance Insurance MEDICARE [facility] Address: [address] [address] MEDICARE [facility] MEDICARE [facility] Care Teams Turf Farmer Relationship Specialty Start Date End Date Adarsh Wells MD PCP - General Family Medicine 11/16/21
== END 2025-01-03 15:26 | disposition home or self-care (01) ==
LOC: ANHFOHIMG 15:27
PROVIDERS: PCP Family Medicine; Visit Provider Family Medicine
DX: Z12.31 Encounter for screening mammogram for malignant neoplasm of breast (principal)
CPT/HCPCS: 77063; 77067

== ENCOUNTER 2025-02-04 01:27 | Day surgery (SDC) | payer MEDICARE, BC, SELFPAY ==
[2025-02-01 15:50] VITALS: BMI 31.0
[2025-02-04 09:06] VITALS: BP 125/61; PULSE 56; RESP 16; TEMP 36.2; O2SAT 96
[2025-02-04] MEDS: LACTATED RINGERS 1,000 ML 150 ML IV CONT (09:23)
[2025-02-04] MEDS: SIMETHICONE ORAL SUSPENSION 20 MG/0.3 ML 30 ML BOTTLE 1.8 ML PO (09:25)
--- NOTE | 2025-02-04 10:21 | PM.IMHP ---
H&P: HPI History of Present Illness Date/Time: 02/04/25 10:21 Chief Complaint: Epigastric pain Narrative: The patient is referred for EGD for the evaluation of epigastric pain that has been intermittent. Importantly, she states that after she stopped injecting semaglutide, most of her symptoms got significantly better. Review of Systems Review of Systems: All systems reviewed & are unremarkable except as noted in HPI and below PMFSH Past Medical History Medical History (Updated 01/26/25 @ 15:04 by Talisha Pineda APRN) Nausea Bloating Epigastric pain Other director long term care (current) drug therapy Left knee pain Diarrhea Allergic reaction PLMD (periodic limb movement disorder) BMI 32.0-32.9,adult Edema Deviated septum Diabetes Acid reflux Elevated lipids Irritable bowel Hypertension Surgical History Surgical History History of 2 sections Hx laparoscopic cholecystectomy Hx of tonsillectomy H/O total hysterectomy with bilateral salpingo-oophorectomy (BSO) Open TYREL-BSO in September 2018 History of removal of skin mole H/O tubal ligation H/O shoulder surgery Family History Family History Daughter Carcinoma of colon Sibling Diabetes mellitus Mother Diabetes mellitus Family history of coronary artery disease Family history of hypercholesterolemia Hypertension Acute myocardial infarction Gallbladder disease Father Cerebrovascular accident Family history of coronary artery disease Family history of hypercholesterolemia Hypertension Acute myocardial infarction Grandparent Diabetes mellitus Sibling Diabetes mellitus Family history of hypercholesterolemia Hypertension Other Family history of malignant neoplasm of breast Social History Social History Smoking status: Never smoker Second hand tobacco smoke exposure: Yes Alcohol intake: never Substance use: never Substance use type: does not use Do You Feel Safe in your Home?: Yes Lack of Transportation: No Lack of Food: Never True Current Housing: I Have Housing Concerned About Future Housing: No Difficulty Paying Gas/Electric Bills: No Difficulty Paying for Meds: No Currently Unemployed: No Education: Associate Degree Difficulty w/ Childcare or Family Care: No Living arrangements: alone Occupation/Education: retired 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 Gender identity (if verbalized by the patient): Female Sexual Orientation (if Verbalized by the Patient): Straight or Heterosexual Spiritual care concerns: No Agree to blood products: Yes Meds Home Medications and Allergies Home Medications ?Medication ?Instructions ?Recorded ?Confirmed ?Type melatonin 5 mg capsule 5 mg PO HS 05/11/20 02/04/25 History cholecalciferol (vitamin D3) 125 125 mcg PO DAILY 08/09/21 02/04/25 History mcg (5,000 unit) capsule amlodipine 5 mg tablet See Rx Instructions .Route 10/14/21 02/04/25 Rx .COMPLEX #30 tabs spironolactone 25 mg tablet 25 mg PO DAILY 04/18/22 02/04/25 History hydralazine 25 mg tablet 25 mg .Route BID 05/26/24 02/04/25 History omeprazole 40 mg capsule,delayed 40 mg PO DAILY 3 months #90 caps 05/26/24 02/04/25 Rx release omega 6-ocn-wns-fish oil 100 1 cap PO DAILY 07/23/24 02/04/25 History mg-160 mg-1,000 mg capsule (Fish Oil) magnesium glycinate 120 mg (as 200 mg PO ONCE 11/24/24 02/04/25 History glycinate) capsule alpha lipoic acid 600 mg capsule 600 mg PO DAILY 01/10/25 02/04/25 History rosuvastatin 40 mg tablet 40 mg PO DAILY #90 tabs 01/10/25 02/04/25 Rx Farxiga 10 mg tablet 10 mg PO QAM #90 tabs 01/11/25 02/04/25 Rx (dapagliflozin propanediol) gabapentin 300 mg capsule See Rx Instructions .Route 01/11/25 02/04/25 Rx .COMPLEX #450 caps metformin 500 mg tablet,extended See Rx Instructions PO .COMPLEX 90 01/11/25 02/04/25 Rx release 24 hr days #270 tabs valsartan 320 mg tablet 320 mg PO DAILY #90 tabs 01/11/25 02/04/25 Rx meloxicam 15 mg tablet See Rx Instructions .Route 01/29/25 02/04/25 Rx .COMPLEX #30 tabs Allergies Allergy/AdvReac Type Severity Reaction Status Date / Time adhesive Allergy Unknown RASH Verified 02/04/25 09:04 codeine Allergy Unknown Unknown Verified 02/04/25 09:04 Penicillins Allergy Unknown Hives / Verified 02/04/25 09:04 Red Face epinephrine AdvReac Unknown Palpitation Verified 02/04/25 09:04 s morphine AdvReac Hallucinati Verified 02/04/25 09:04 ng Vital Signs Vital Signs - 24 hr 02/04/25 09:06 Temperature 97.2 F L Pulse Rate 56 L Respiratory Rate 16 Blood Pressure 125/61 Pulse Oximetry 96 Oxygen Delivery Room Air Exam Const: General: cooperative and healthy appearing Resp: Effort & Inspection: normal respiratory effort and able to speak in complete sentences Auscultation: clear to auscultation bilaterally Cardio: Rate: regular rate Rhythm: regular rhythm GI: Inspection: normal to inspection GI Palp: No No hepatosplenomegaly present Auscultation: normal bowel sounds Rectal Exam: deferred Skin: General skin exam: normal color Psych: Appearance: grossly normal Mental Status: mental status grossly normal Assessment and Plan Assessment and plan (1) Chronic epigastric pain: Code(s): R10.13 - Epigastric pain; G89.29 - Other chronic pain Status: Acute Assessment and Plan: The patient is deemed a good candidate for the procedure. Consent signed. Will proceed.
--- NOTE | 2025-02-04 10:37 | WPDANESEPPF ---
Anes - Initial Pre Proc Eval Procedure: Operation Date: 02/04/25 10:00 Proposed Procedures p Esophagogastroduodenoscopy - Ravin Lui MD Date/Time: 02/04/25 10:37 Surgeon: Ravin Lui MD Pre Op Diagnosis: Gastro-esophageal reflux disease without esophagit Patient Data Age: 74 Gender: F Height: 1.63 m Weight: 80.7 kg Last Vital Signs Temp 97.2 F L 02/04/25 09:06 Pulse 56 L 02/04/25 09:06 Resp 16 02/04/25 09:06 BP 125/61 02/04/25 09:06 Pulse Ox 96 02/04/25 09:06 O2 Del Method Room Air 02/04/25 09:06 Allergies Allergy/AdvReac Type Severity Reaction Status Date / Time adhesive Allergy Unknown RASH Verified 02/04/25 09:04 codeine Allergy Unknown Unknown Verified 02/04/25 09:04 Penicillins Allergy Unknown Hives / Verified 02/04/25 09:04 Red Face epinephrine AdvReac Unknown Palpitation Verified 02/04/25 09:04 s morphine AdvReac Hallucinati Verified 02/04/25 09:04 ng Home Medications ?Medication ?Instructions ?Recorded ?Confirmed ?Type melatonin 5 mg capsule 5 mg PO HS 05/11/20 02/04/25 History cholecalciferol (vitamin D3) 125 125 mcg PO DAILY 08/09/21 02/04/25 History mcg (5,000 unit) capsule amlodipine 5 mg tablet See Rx Instructions .Route 10/14/21 02/04/25 Rx .COMPLEX #30 tabs spironolactone 25 mg tablet 25 mg PO DAILY 04/18/22 02/04/25 History hydralazine 25 mg tablet 25 mg .Route BID 05/26/24 02/04/25 History omeprazole 40 mg capsule,delayed 40 mg PO DAILY 3 months #90 caps 05/26/24 02/04/25 Rx release omega 9-ehe-oll-fish oil 100 1 cap PO DAILY 07/23/24 02/04/25 History mg-160 mg-1,000 mg capsule (Fish Oil) magnesium glycinate 120 mg (as 200 mg PO ONCE 11/24/24 02/04/25 History glycinate) capsule alpha lipoic acid 600 mg capsule 600 mg PO DAILY 01/10/25 02/04/25 History rosuvastatin 40 mg tablet 40 mg PO DAILY #90 tabs 01/10/25 02/04/25 Rx Farxiga 10 mg tablet 10 mg PO QAM #90 tabs 01/11/25 02/04/25 Rx (dapagliflozin propanediol) gabapentin 300 mg capsule See Rx Instructions .Route 01/11/25 02/04/25 Rx .COMPLEX #450 caps metformin 500 mg tablet,extended See Rx Instructions PO .COMPLEX 90 01/11/25 02/04/25 Rx release 24 hr days #270 tabs valsartan 320 mg tablet 320 mg PO DAILY #90 tabs 01/11/25 02/04/25 Rx meloxicam 15 mg tablet See Rx Instructions .Route 01/29/25 02/04/25 Rx .COMPLEX #30 tabs Laboratory Tests 02/04/25 09:21 POC Capillary Glucose 150 H mg/dl (65-105) Patient hx anesthesia problems: none Family hx anesthesia problems: none Results Review: All pre-operative results and documents have been reviewed as part of the pre-operative evaluation. [facility] Past Medical History Medical History Nausea Bloating Epigastric pain Other exterminator termite (current) drug therapy Left knee pain Diarrhea Allergic reaction PLMD (periodic limb movement disorder) BMI 32.0-32.9,adult Edema Deviated septum Diabetes Acid reflux Elevated lipids Irritable bowel Hypertension Surgical History Surgical History History of 2 sections Hx laparoscopic cholecystectomy Hx of tonsillectomy H/O total hysterectomy with bilateral salpingo-oophorectomy (BSO) Open TYREL-BSO in September 2018 History of removal of skin mole H/O tubal ligation H/O shoulder surgery Family History Family History Daughter Carcinoma of colon Sibling Diabetes mellitus Mother Diabetes mellitus Family history of coronary artery disease Family history of hypercholesterolemia Hypertension Acute myocardial infarction Gallbladder disease Father Cerebrovascular accident Family history of coronary artery disease Family history of hypercholesterolemia Hypertension Acute myocardial infarction Grandparent Diabetes mellitus Sibling Diabetes mellitus Family history of hypercholesterolemia Hypertension Other Family history of malignant neoplasm of breast Social History Social History Smoking status: Never smoker Second hand tobacco smoke exposure: Yes Alcohol intake: never Substance use: never Substance use type: does not use Do You Feel Safe in your Home?: Yes Lack of Transportation: No Lack of Food: Never True Current Housing: I Have Housing Concerned About Future Housing: No Difficulty Paying Gas/Electric Bills: No Difficulty Paying for Meds: No Currently Unemployed: No Education: Associate Degree Difficulty w/ Childcare or Family Care: No Living arrangements: alone Occupation/Education: retired Additional occupation/education comments: sas programmer Gender identity (if verbalized by the patient): Female Sexual Orientation (if Verbalized by the Patient): Straight or Heterosexual Spiritual care concerns: No Agree to blood products: Yes Anes - Eval Final PreProcedure Day of Procedure 02/04/25 10:37 Patient weight: obese Lungs: normal air movement Airway: Mallampati scale class II Neurological: alert and oriented Last oral intake: >/= 8 hours ASA classification: III Emergent: no Anesthetic plan: proceed Anesthesia type and monitoring: general GIVS and standard monitoring Results Review: All pre-operative results and documents have been reviewed as part of the pre-operative evaluation. HTN, hyperlipidemia, DM fsbs 150. Active without cp or sob. Informed Consent: The patient's anesthetic plan and its attendant risks and benefits were discussed with the patient/family/POA. Questions were solicited and answers provided to the satisfaction of the patient/family/POA.
--- NOTE | 2025-02-04 10:52 | S_PTH ---
PATIENT: Heidy Arciniega LOC: [facility] U#:[id number] AGE/SX: 74/F ROOM: RE02/04/[address]: Ravin Lui MD : 1950 BED: DIS: 02/04/2025 SPEC #: [id number] RECD: 02/04/25 11:51 STATUS: DOC REAmie #: [id number] ALEXANDRA: 02/04/25 10:[address]: Ravin Lui DEPT: [facility] Surgical RECD BY: Myranda Cruz ENTERED: 02/04/25 11:52 SP TYPE: Surgical OTHR DR: Adarsh Wells MD Tissues: A - Gastric Biopsy B - Gastric Biopsy Procedures: Hematoxylin and Eosin Stain Gross and Microscopic Level 4
[2025-02-04 10:55] VITALS: BP 132/58; PULSE 60; RESP 17; O2SAT 100
[2025-02-04 11:05] VITALS: BP 144/59; PULSE 63; RESP 18; O2SAT 99
[2025-02-04 11:15] VITALS: BP 150/72; PULSE 59; RESP 20; O2SAT 100
== END 2025-02-04 11:34 | disposition home or self-care (01) ==
PROVIDERS: PCP Family Medicine; Referring Provider Nurse Practitioner Family; Visit Provider Internal Medicine Gastroenterology
PROC: 0DJ08ZZ Inspection of Upper Intestinal Tract, Via Natural or Artificial Opening Endoscopic (ICD-10-PCS; CPT 43239; principal; 2025-02-04 10:00)
DX: K29.30 Chronic superficial gastritis without bleeding (principal); E11.9 Type 2 diabetes mellitus without complications; E66.9 Obesity, unspecified; Z68.30 Body mass index [BMI] 30.0-30.9, adult
CPT/HCPCS: 43239; 82948; 88305; J2003; J2704; J7120

== ENCOUNTER 2025-03-03 15:11 | Outpatient (CLI) | payer MEDICARE, BC, SELFPAY ==
--- NOTE | ~2025-03-03 | XR_ITS ---
EXAMINATION: XR hip RT 2V w AP pelvis DATE: 03/03/2025 15:34 INDICATION: Right hip pain. Bursitis. TECHNIQUE: 4 views were obtained. COMPARISON: None. FINDINGS: Significant osteoarthritis of right hip. No acute bony lesions. Bones appear to be osteopenic. Severe degenerative disc changes of lower lumbar spine is noted in the AP projection. IMPRESSION: 1. Significant osteoarthritis of right hip. Possible osteopenic bones. Please correlate with DEXA densitometry. 2. Severe degenerative disc changes of lower lumbar spine and facet arthropathy in the AP projection. Reviewed, dictated and finalized at location T. D DESIGNER IMPRESSION: 1. Significant osteoarthritis of right hip. Possible osteopenic bones. Please c orrelate with DEXA densitometry. 2. Severe degenerative disc changes of lower lumbar spine and facet arthropathy in the AP projection.
--- NOTE | ~2025-03-03 | XR_ITS ---
EXAMINATION: XR knee RT min 4V, 03/03/2025 15:24 EDI SPECIALIST HISTORY: M17.11 - Unilateral primary osteoarthritis, right knee COMPARISON: No comparisons available. Findings: No acute fracture or malalignment. No significant degenerative changes. Soft tissues unremarkable. Impression: No acute fracture or malalignment. Reviewed, dictated and finalized at location P. SPECIALIST Impression: No acute fracture or malalignment.
--- OUTSIDE RECORDS SUMMARY | 2025-03-03 18:02 | XMS_ITS | Clinical Summary ---
Author Organization [facility] Address [address] [place] [address] Care Team Providers Care Plastic Surgery Nurse Name Role Phone Yeimi Dominguez Primary Care Provider [phone] Allergies Active Allergy Reactions Criticality Noted Date Comments Adhesive Hives Medium 08/07/2020 Amlodipine Edema Medium 11/16/2021 Codeine Vomiting Low 11/16/2021 Epinephrine Other (See comments) Low 08/07/2020 Tachycardia Morphine Hallucinations Medium 08/07/2020 Penicillins Hives Medium 08/07/2020 Medications fluticasone propionate (FLONASE) 50 mcg/actuation nasal spray fluticasone propionate 50 mcg/actuation nasal spray,suspensio n Active melatonin 5 mg tablet Active metFORMIN XR (GLUCOPHAGE XR) 500 mg 24 hr tablet Take 4 tablets (2,000 mg total) by mouth daily 2 Active cholecalciferol (VITAMIN D-3) 5,000 unit capsule Take 1 capsule (5,000 Units total) by mouth daily Active omeprazole (PriLOSEC) 20 mg capsule Take 2 capsules (40 mg total) by mouth 2 (two) times a day 2 Active dapagliflozin propanediol (FARXIGA) 10 mg tablet 1 tablet (10 mg total) 2 Active gabapentin (NEURONTIN) 300 mg capsule Take 1 capsule (300 mg total) by mouth 3 (three) times a day 2 Active cetirizine (ZyrTEC) 10 mg tablet Take 1 tablet (10 mg total) by mouth daily Active UNABLE TO FIND Magnesium Cream for restless leg Active mv/FA/dha/epa/fi sh/torrie/D3/gink (WOMEN'S 50 + VITAPAK ORAL) Take by mouth Ac tive alpha lipoic acid 100 mg capsule Take by mouth Active ferrous sulfate 325 mg (65 mg of elemental iron) tablet Take 1 tablet (325 mg total) by mouth daily 3 Active B complex 04-glseb-E-biot- zinc [id number] ai-sv-hws-mg tablet Take by mouth Active Ozempic 0.25 mg or 0.5 mg (2 mg/3 mL) pen injector injection 3 Active magnesium gluconate 200 mg tabletIndication s:hypomagnesemia 1.25 tablets (250 mg total) Active rosuvastatin (CRESTOR) 40 mg tablet Take 1 tablet (40 mg total) by mouth daily 3 Active meloxicam (MOBIC) 15 mg tablet Take 1 tablet (15 mg total) by mouth daily Active fish oil-dha-epa 1,200-144-216 mg capsule Take by mouth Active spironolactone (ALDACTONE) 25 mg tablet Take 1 tablet (25 mg total) by mouth daily 90 tablet 3 5 07/17/19 26 Active amLODIPine (NORVASC) 5 mg tablet Take 1 tablet (5 mg total) by mouth daily 90 tablet 3 5 Active hydrALAZINE (APRESOLINE) 25 mg tabletIndication s:Hypertension associated with diabetes (HCC) Take 1 tablet (25 mg total) by mouth 2 (two) times a day 180 tablet 3 5 Active valsartan (DIOVAN) 320 mg tablet Take 1 tablet (320 mg total) by mouth daily 90 tablet 3 5 Active Active Problems Problem Noted Date Diagnosed Date Gastroesophageal reflux disease 02/11/2023 Hypertension associated with [...] 11/16/2021 Nonrheumatic aortic valve insufficiency 11/17/19 22 Resolved Problems Problem Noted Date Diagnosed Date Resolved Date Nonrheumatic aortic valve stenosis 05/08/2023 02/04/2025 Encounters Date Type Department Care Team Description 01/17/2025 1:30 PM CDT Office Visit [facility] [address] [place] [id number] Patricia Bourgeois MD Hypertension associated with diabetes (HCC) (Primary Dx); Mixed diabetic hyperlipidemia associated with type 2 diabetes mellitus (HCC); Nonrheumatic aortic valve insufficiency from Last 3 Months Surgical History Surgery Date Site/Laterality Comments SHOULDER SURGERY HYSTERECTOMY 04/14/2018 - 04/13/2019 SECTION x2 LAPAROSCOPIC CHOLECYSTECTOMY TONSILLECTOMY Medical History Medical History Date Comments Diastolic dysfunction Sleep apnea Hypertension Diabetes mellitus Edema PLMD (periodic limb movement disorder) Irritable [...] on file Legal Sex Female 5:24 AM CASTING FINISHER Gender Identity Not on file Sexual Orientation Not on file Last Filed Vital Signs Vital Sign Reading Time Taken Comments Blood Pressure 118/64 01/17/2025 1:17 PM CDT Pulse 67 01/17/2025 1:17 PM CDT Temperature - - Respiratory Rate - - Oxygen Saturation 97% 01/17/2025 1:17 PM CDT Inhaled Oxygen Concentration - - Weight 81.9 kg (180 lb 8 oz) 01/17/2025 1:17 PM CDT Height 162.6 cm (5' 4) 01/17/2025 1:17 PM CDT Body Mass Index 30.98 01/17/2025 1:17 PM CDT Plan of Treatment Health Maintenance Due [...] Comments LIPID PANEL Routine 05/13/2024 9:20 AM CASTING FINISHER BASIC METABOLIC PANEL Routine 05/09/2022 8:20 AM CASTING FINISHER Hyponatremia from Last 3 Months or Most Recently Relevant to Health Maintenance Results * Lipid panel (05/13/2024 9:20 AM CASTING FINISHER) SCRIBED Cholesterol, Total 128 <100 EXTERNAL LAB SCRIBED HDL 44 >40 EXTERNAL LAB SCRIBED LDL 53 <100 EXTERNAL LAB SCRIBED Triglycerides 151 <150 EXTERNAL LAB Blood 05/13/2024 9:20 AM CASTING FINISHER [facility] Jimmy Smith MD LAB BLOOD ORDERABLES Fi nal Result EXTERNAL LAB * (ABNORMAL) Basic metabolic panel (05/09/2022 8:20 AM CASTING FINISHER) [facility] Glucose 123(H) 65 - 99 mg/dL [facility] Comment: Fasting reference interval For someone without known diabetes, a glucose value between 100 and 125 mg/dL is consistent with prediabetes and should be confirmed with a follow-up test. BUN 16 7 - 25 mg/dL [facility] Creatinine 0.66 0.60 - 1.00 mg/dL [facility] eGFR 93 > OR = 60 mL/min/1. 73m2 [facility] Comment: The eGFR is based on the CKD-EPI 2020 equation. To calculate the new eGFR from a previous Creatinine or Cystatin C result, go to https://www.kidney.org/professionals/ kdoqi/gfr%5Fcalculator BUN/creat ratio NOT APPLICABLE 6 - (calc) [facility] Sodium 135 135 - 146 mmol/L [facility] Potassium, pl 4.3 3.5 - 5.3 mmol/L [facility] Chloride 97(L) 98 - 110 mmol/L [facility] CO2 32 20 - 32 mmol/L [facility] Calcium 9.5 8.6 - 10.4 mg/dL [facility] Blood 05/09/2022 8:20 AM CASTING FINISHER 05/09/2022 8:20 AM CASTING FINISHER Toshia Gregg NP LAB BLOOD ORDERABLES Kira l Result [facility] [id number] [place] [id number] from Last 3 Months or Most Recently Relevant to Health Maintenance Insurance MEDICARE MEDICARE [facility] Care Teams Plastic Surgery Nurse Relationship Specialty Start Date End Date Yeimi Dominguez PA [address] [place] [address] PCP - General Physician Hot Top Liner 01/17/25
--- OUTSIDE RECORDS SUMMARY | 2025-03-03 18:03 | XMS_ITS | Encounter Summary ---
Author Organization [facility] Address [address] [place] [address] Care Team Providers Care Air Intercept Controller Name Role Phone Adarsh Wells MD Primary Care Provider [phone] Encounter Details Date Type Department Care Team (Late st Contact Info) Description 11/21/1998 Outpatient Historical [facility] PARAOPTOMETRIC - Medical [facility] [address] [place] [address] Dario Santos MD [id number] [place] [address] Social History Tobacco Use Types Packs/Day Years Used Date Smoking Tobacco: Never Assessed Comments Unknown Sex and Gender Information Value Date Recorded Sex Assigned at Not on file Legal 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 [address] PCP - General Family Practice 09/29/18 documented as of this encounter
--- OUTSIDE RECORDS SUMMARY | 2025-03-03 18:03 | XMS_ITS | Encounter Summary ---
Author Organization [facility] Address [address] [place] [address] Care Team Providers Care Acute Care Physical Therapist Name Role Phone Adarsh Wells MD Primary Care Provider [phone] Encounter Details Date Type Department Care Team (Latest Contact Info) Description 11/20/1998 Outpatient Historical [facility],NON-PATIENT [facility] Ye[facility] Laboratory examination (Primary Dx) Social History Tobacco Use Types Packs/Day Years Used Date Smoking Tobacco: Never Assessed Comments Unknown Sex and Gender Information Value Date Recorded Sex Assigned at Not on file Legal Sex Female 4:39 AM CHILD CARE ATTENDANT Gender Identity Not on file Sexual Orientation Not on file documented as of this encounter Plan of Treatment Not on file documented as of this encounter Visit Diagnoses Diagnosis Laboratory examination- Primary documented in this encounter Care Teams Acute Care Physical Therapist Relationship Specialty Start Date End Date Adarsh Wells MD [address] [place] [address] PCP - General Family Practice 09/29/18 documented as of this encounter
--- OUTSIDE RECORDS SUMMARY | 2025-03-03 18:03 | XMS_ITS | Encounter Summary ---
Author Organization [facility] Address [address] 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 [address] PCP - General Family Practice 09/29/18 documented as of this encounter
--- OUTSIDE RECORDS SUMMARY | 2025-03-03 18:03 | XMS_ITS | Clinical Summary ---
Author Organization [facility] Address [address] [place] [address] Care Team Providers Care Corporate Associate Name Role Phone Ronn Lechuga MD Primary Care Provider [phone] Source Comments [facility],non-[facility] Affiliates and Associated Physician Practices is amultiple site organization consisting of ambulatory clinics and hospital sitesin [place], [place], [place] and [place]. This disclosure is being madepursuant to the Care Everywhere program and may not contain all information available regarding this patient. Last updated 18.[facility] [employer] Social History Tobacco Use Types Packs/Day Years [...] SCREENING 1950 LIPID TESTING 1950 MAMMOGRAM 1950 MEDICARE AWV 12 MONTHS 1950 HEPATITIS C SCREENING 03/26/1968 DTAP/TDAP/TD VACCINES (1 - Tdap) 1969 PNEUMOCOCCAL VACCINE 50+ (1 of 1 - PCV) 2000 ZOSTER VACCINE (1 of 2) 2000 DEPRESSION SCREENING 04/14/2024 COVID-19 VACCINE (1 - 2024-2 6 season) 2024 INFLUENZA VACCINE (#1) 2024 Respiratory [...] age to complete this topic Insurance [facility]IC[facility] MEDICARE [facility] SELF PAY NO INSURANCE Member Subscriber Plan / Payer (Ef fective for All Dates) Name:Jd Arciniega Member ID:Not on file Relation to Subscriber:Not on file Name:JD ARCINIEGA Subscriber ID:Not on file (Home) Address: [place] [address] Payer ID:Not on file Group ID:Not on file Type:Self Pay Address: . [facility] Care Teams Corporate Associate Relationship Specialty Start Date End Date Ronn Lechuga MD [address] [place] [address] PCP - General 08/13/18
--- OUTSIDE RECORDS SUMMARY | 2025-03-03 18:03 | XMS_ITS | Clinical Summary ---
Author Organization [facility] Address [address] [place] [address] Phone Care Team Providers Care Automation/Controls Manager Name Role Phone Adarsh Wells MD [...] on file Legal Sex Female 4:39 AM PARKING REGULATION ENFORCEMENT OFFICER Gender Identity Not on file Sexual Orientation [...] 2025 Insurance MEDICARE PART A AND B [facility] Care Teams Automation/Controls Manager Relationship Specialty Start Date End Date Adarsh Wells MD [address] [place] [address] PCP - General Family Practice 09/29/18
--- OUTSIDE RECORDS SUMMARY | 2025-03-03 18:03 | XMS_ITS | Encounter Summary ---
Author Organization [facility] Address [address] [place] [address] Care Team Providers Care Nissan Sales Consultant Name Role Phone Ronn Lechuga MD Primary Care Provider [phone] Encounter Details Date Type Department Care Team (Late st Contact Info) Description 08/14/2018 Lab Requisition [facility] Care DermPath Lab [address] [facility] [facility] [place] [address] Mary Baptiste MD [address] [facility] [address] [place] [address] Social History Tobacco Use Types Packs/Day Years [...] AM CDT) Case Report Dermatopathology Report Case: [id number] Authorizing Provider: Mary Baptiste MD Collected: 08/13/2018 12:00 AM Pathologist: Randi Ulloa MD Received: 08/14/2018 06:52 AM Specimens: A) - Skin, right neck B) - Skin, left abdomen 3:41 PM CDT DERMATOPATHOLOGY LABORATORY Final Diagnosis Specimen A. 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 The specimen consists of a shave biopsy (3 pieces) [id number],5x3 x1, and 2x2x1 mm. Jar 0. Specimen B: Received is one formalin filled container labeled with the patient's name and designated left abdomen. The specimen consists of a shave biopsy measuring 17x8x1 mm. Jar 0. 3:41 PM CDT DERMATOPATHOLOGY LABORATORY Microscopic Description Specimen A. SKIN, [...] demarcated from surrounding basaloid keratinocytes. 3:41 PM CDT DERMATOPATHOLOGY LABORATORY Disclaimer An external and internal positive and negative controls are appropriate for the histochemical, immunohistochemical and immunofluorescence stain(s) in this case (if any), except where stated explicitly. The performance characteristics of the stain(s) cited in this report were developed and its performance characteristic determined by the Dermatopathology Laboratory at [facility], directed by Dr. Marcell Celis. These tests need not be, and therefore are not, approved by the [place] Food and Drug Administration. The tests are used for clinical purposes. Billing Codes Specimen Charges Stain Charges 30473 50289 1 1 51324 08627 58530 1 1 1 9 3:41 PM CDT DERMATOPATHOLOGY LABORATORY Embedded Images 9 3:41 PM CDT DERMATOPATHOLOGY LABORATORY Pathology/Cytology TISSUE SPECIMEN FROM SKIN / Unknown 08/13/2018 08/14/2018 6:52 AM CDT Miscellaneous samples (specimen) TISSUE SPECIMEN FROM SKIN / Unknown 08/13/2018 08/14/2018 6:52 AM CDT Mary Baptiste MD LAB - PATHOLOGY/CYTOLOGY OR DERABLES Final Result DERMATOPATHOLOGY LABORATORY [facility] - Department of Dermatology [address] [place] [address], 5th Floor Lab [address] [phone] documented in this encounter Visit Diagnoses Not on filedocumented in this encounter Care Teams Nissan Sales Consultant Relationship Specialty Start Date End Date Ronn Lechuga MD [address] [place] [address] PCP - General 08/13/18 documented as of this encounter
--- OUTSIDE RECORDS SUMMARY | 2025-03-03 18:03 | XMS_ITS | Encounter Summary ---
Author Organization [facility] Address [address] [place]: Epic Prelude ADT JONA [place]ST [address] Care Team Providers Care Operating Room Rn Name Role Phone Adarsh Wells MD Primary Care Provider Encounter Details Date Type Department Care Team (Late st Contact Info) Description 11/22/1996 Outpatient Historical Conversion, History Manan Yeager Social History Tobacco Use Types Packs/Day Years Used Date Smoking Tobacco: Never Assessed Comments Unknown Sex and Gender Information Value Date Recorded Sex Assigned at Not on file Legal Sex Female 4:39 AM ULTRASOUND TECHNOL Gender Identity Not on file Sexual Orientation Not on file documented as of this encounter Plan of Treatment Not on file documented as of this encounter Visit Diagnoses Not on filedocumented in this encounter Care Teams Operating Room Rn Relationship Specialty Start Date End Date Adarsh Wells MD [address] [place] [address] PCP - General Family Practice 09/29/18 documented as of this encounter
--- OUTSIDE RECORDS SUMMARY | 2025-03-03 18:03 | XMS_ITS | Encounter Summary ---
Author Organization [facility] Address [address] 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 [address] PCP - General Family Practice 09/29/18 documented as of this encounter
--- OUTSIDE RECORDS SUMMARY | 2025-03-03 18:03 | XMS_ITS | Encounter Summary ---
Author Organization [facility] Address [address] [place] [address] Care Team Providers Care Circulation Supervisor Name Role Phone Adarsh Wells MD Primary Care Provider [phone] Encounter Details Date Type Department Care Team (Late st Contact Info) Description 11/16/1998 Outpatient Historical [facility] LEAD SOFTWARE ARCHITECT - Medical [facility] [address] [facility] [address] [address] Manan Yeager Social History Tobacco Use Types Packs/Day Years Used Date Smoking Tobacco: Never Assessed Comments Unknown Sex and Gender Information Value Date Recorded Sex Assigned at Not on file Legal Sex Female 4:39 AM DIRECTOR OF DIVERSITY AND INCLUSION Gender Identity Not on file Sexual Orientation Not on file documented as of this encounter Plan of Treatment Not on file documented as of this encounter Visit Diagnoses Not on filedocumented in this encounter Care Teams Circulation Supervisor Relationship Specialty Start Date End Date Adarsh Wells MD [address] [place] [id number] PCP - General Family Practice 09/29/18 documented as of this encounter
== END 2025-03-03 15:12 | disposition home or self-care (01) ==
PROVIDERS: PCP Family Medicine; Visit Provider Orthopaedic Surgery
DX: M17.11 Unilateral primary osteoarthritis, right knee (principal); M16.11 Unilateral primary osteoarthritis, right hip; M70.61 Trochanteric bursitis, right hip; M51.369 Other intervertebral disc degeneration, lumbar region without mention of lumbar back pain or lower extremity pain; M47.896 Other spondylosis, lumbar region
CPT/HCPCS: 73502; 73564

== ENCOUNTER 2025-03-21 08:49 | Outpatient (CLI) | payer MEDICARE, BC, SELFPAY ==
--- NOTE | ~2025-03-21 | DEXA_ITS ---
Bone Density Report Name: JD AGGARWAL Age: 74 Sex: Female Ethnicity: White Date of : 1950 Indication: postmenopausal; screening for osteoporosis; height loss; prior fracture; hysterectomy; Referring Provider: KIMMY MERCER Study: Bone densitometry was performed. Exam Date: March 21, 2025 Accession number: [id number] Bone Density: Region BMD T-score Z-score Classification AP Spine(L1-L4) 1.166 1.1 3.5 Normal Femoral Neck (Left) 0.744 -0.9 1.1 Normal Total Hip (Left) 0.935 -0.1 1.7 Normal Femoral Neck (Right) 0.716 -1.2 0.9 Osteopenia Total Hip (Right) 0.938 0.0 1.7 Normal Total Hip Mean 0.936 -0.1 1.7 Normal World Health Organization criteria for BMD impression classify patients as: Normal (T-score at or above -1.0), Osteopenia (T-score between -1.0 and -2.5), or Osteoporosis (T-score at or below -2.5). 10-year Fracture Risk(1): Major Osteoporotic Fracture 15% Hip Fracture 2.3% Reported Risk Factors: [place] (), Neck BMD=0.716, BMI=31.4, previous fracture (1) FRAX(R) Version 3.08. Fracture probability calculated for an untreated patient. Fracture probability may be lower if the patient has received treatment. Previous Exams: Region Exam Age BMD T-score BMD Change BMD Change Date g/cm2 vs Baseline vs Previous Total Hip(Left) 03/21/2025 74 0.935 -0.1 -0.023 (-2.4%) 0.005 (0.5%) 11/25/2022 72 0.930 -0.1 -0.028 (-2.9%) -0.028 (-2.9%) 09/29/2020 70 0.957 0.1 Total Hip(Right) 03/21/2025 74 0.938 0.0 -0.034 (-3.5%) -0.042 (-4.2%) 11/25/2022 72 0.980 0.3 0.008 (0.8%) 0.008 (0.8%) 09/29/2020 70 0.972 0.2 *Denotes significance at 95% confidence level, LSC for Total Hip = 0.027 g/cm2 Clinical Information Provided by Patient: Has had a low trauma fracture Has used the following medications: Fosamax (i.e. alendronate), Vitamin D Has the following medical conditions: Hysterectomy Patient maximum height was 65 Menopause Age: 50 Drinks caffeinated beverages Onset of menses at age 13 Number of children 3 Impression: The patient has low bone mass, based on the Right Femoral Neck T-score. The patient has an estimated ten-year risk of hip fracture of 2.3% and an estimated ten-year risk of major fracture of 15%, based on the WHO FRAX algorithm. The patient has risk factors, including: previous fracture. The BMD for the Total Hip(Right) decreased, changing by -4.2% since the last DXA exam. Discussion: BONE DENSITY IS LOW AT ONE OR MORE SKELETAL SITES. This patient's lowest T-score is low at one or more skeletal sites. It meets the World Health Organization's (WHO) criteria for ?low bone mass? (T-score between -1.0 and -2.5). The patient's 10-year risk of fracture as calculated by FRAX is less than the threshold where pharmacological therapy is recommended by the National Osteoporosis Foundation (NOF). However, all treatment decisions require clinical judgment and consideration of individual patient factors, including patient preferences, comorbidities, previous drug use, risk factors not captured in the FRAX model (e.g., frailty, falls, vitamin D deficiency, increased bone turnover, interval significant decline in bone density) and possible under or overestimation of fracture risk by FRAX. The patient should follow a healthful lifestyle (good nutrition with adequate calcium and vitamin D, and appropriate weight-bearing exercise). Follow-Up: Consider repeating this study in 2 years to reassess this patient's status, or sooner if there is some new clinical indication. Reported by: HARLAN on 03/21/2025 9:32:00 AM. Reviewed, dictated and finalized at location A.
== END 2025-03-21 08:50 | disposition home or self-care (01) ==
LOC: ANHFOHIMG 08:51
PROVIDERS: PCP Family Medicine; Visit Provider Physician Assistant Medical
DX: M85.88 Other specified disorders of bone density and structure, other site (principal); Z78.0 Asymptomatic menopausal state; Z13.820 Encounter for screening for osteoporosis
CPT/HCPCS: 77080